=== PATIENT | female | born 1945 | race Caucasian/White ===

== ENCOUNTER → 2018-02-21 09:11 | Outpatient (CLI) | payer MEDICARE, SELFPAY ==
[2018-02-21 11:02] LABS: Add Manual Diff / Slide Review NO; Basophils Percent Auto 0.9 % (0-2); Eosinophils Percent Auto 1.8 % (2-4); Hematocrit 41.2 % (36-46); Hemoglobin 13.6 g/dL (12.0-16.0); Lymphocytes Percent Auto 31.2 % (25-40); Mean Corpuscular Hemoglobin 29.5 PG (26-34); Mean Corpuscular Volume 89.2 fL (80-100); Monocytes Percent Auto 11.2 % (3-14); Neutrophils Absolute Auto 2900 /uL (3000-5900); Neutrophils Percent Auto 54.9 % (50-75); Platelet Count 146 X10^3/uL (150-400); Red Blood Cell Count 4.61 X10^6/uL (4.0-5.2); Red Cell Distribution Width 13.8 % (11.6-14.8); White Blood Cell Count 5.3 X10^3/uL (4.5-11.0)
[2018-02-21 11:26] LABS: Alanine Aminotransferase 34 IU/L (9-52); Albumin 3.8 g/dL (3.5-5.0); Albumin Globulin Ratio 1.7 (1.0-2.8); Alkaline Phosphatase 84 U/L (38-126); Aspartate Aminotransferase 53 IU/L (14-36); BUN Creatinine Ratio 24.3 (6-22); Bilirubin Total 0.5 mg/dL (0.2-1.3); Blood Urea Nitrogen 17 mg/dL (7-17); Carbon Dioxide 30 mmol/L (22-32); Chloride 104 mmol/L (98-107); Estimated Glomerular Filt Rate > 60.0 mL/min (>60); Globulin 2.3 g/dL (1.7-4.1); Glucose 78 mg/dL (80-110); HEMOLYSIS 17 (0-50); Potassium 3.7 mmol/L (3.4-5.1); Sodium 141 mmol/L (137-145); Total Protein 6.1 g/dL (6.3-8.2)
[2018-02-21 11:30] LABS: Hemoglobin A1C% w Est Avg Glu 5.6 % (4.0-6.0)
[2018-02-21 11:39] LABS: Free T3, Triiodothyronine Free 2.97 pg/mL (2.77-5.27); Free T4, Direct Thyroxine 1.25 ng/dL (0.78-2.19)
[2018-02-21 11:52] LABS: Thyroid Stimulating Hormone 2.17 uIU/mL (0.47-4.68)
[2018-02-21 15:57] LABS: Creatinine Urine Random 62.6 mg/dL
[2018-02-21 16:07] LABS: Microalbumi Creatinin Ratio Ur 9.5 ug/mg CR (<30); Microalbumin Urine Random < 0.6 mg/dL (0-1.6)
== END ==
PROVIDERS: PCP Family Medicine; Visit Provider Family Medicine
DX: E11.9 Type 2 diabetes mellitus without complications (principal); I10 Essential (primary) hypertension
CPT/HCPCS: 36415; 80053; 82043; 82570; 83036; 84439; 84443; 84481; 85025

== ENCOUNTER → 2018-06-11 09:33 | Outpatient (CLI) | payer MEDICARE, SELFPAY ==
--- NOTE | 2018-06-11 | DI.MG.S_ITS ---
BILATERAL DIGITAL SCREENING MAMMOGRAM 3D/2D WITH CAD: 06/11/2018 CLINICAL: Routine screening. Comparison is made to exams dated: 06/26/2017 mammogram, 06/07/2017 mammogram, and 05/18/2016 mammogram - [facility]. There are scattered fibroglandular elements in both breasts. Current study was also evaluated with a Computer Aided Detection (CAD) system. No significant masses, calcifications, or other findings are seen in either breast. There has been no significant interval change. IMPRESSION: NEGATIVE There is no mammographic evidence of malignancy. A 1 year screening mammogram is recommended. This exam was interpreted at Station ID: [id number]. NOTE: For mammograms, a report in lay terms will be sent to the patient. Approximately 15% of breast malignancies will not be visualized mammographically. In the management of a palpable breast mass, a negative mammogram must not discourage biopsy of a clinically suspicious lesion. Electronically Signed By: Tima aldrich/lester:06/11/2018 11:15:04 letter sent: Normal Exam ACR BI-RADS Category 1: Negative [id number]
== END ==
PROVIDERS: Family Provider Family Medicine; PCP Family Medicine; Visit Provider Family Medicine
DX: Z12.31 Encounter for screening mammogram for malignant neoplasm of breast (principal)
CPT/HCPCS: 77063; 77067

== ENCOUNTER → 2018-06-18 14:01 | Outpatient (CLI) | payer MEDICARE, SELFPAY ==
[2018-06-18 15:12] LABS: Add Manual Diff / Slide Review NO; Basophils Absolute Auto 0 /uL (0-100); Basophils Percent Auto 0.8 % (0-2); Eosinophils Absolute Auto 100 /uL (0-450); Eosinophils Percent Auto 1.6 % (2-4); Hematocrit 39.4 % (36-46); Lymphocytes Absolute Auto 2000 /uL (1100-4500); Lymphocytes Percent Auto 33.9 % (25-40); Mean Corpuscular HGB Conc 32.9 % (30-36); Mean Corpuscular Hemoglobin 29.2 PG (26-34); Mean Corpuscular Volume 88.8 fL (80-100); Monocytes Absolute Auto 500 /uL (0-900); Monocytes Percent Auto 8.2 % (3-14); Neutrophils Absolute Auto 3300 /uL (1500-7000); Neutrophils Percent Auto 55.5 % (50-75); Platelet Count 183 X10^3/uL (150-400); Red Blood Cell Count 4.44 X10^6/uL (4.0-5.2); Red Cell Distribution Width 14.2 % (11.6-14.8)
[2018-06-18 15:29] LABS: Alanine Aminotransferase 34 IU/L (9-52); Amylase 69 U/L (30-110); Aspartate Aminotransferase 34 IU/L (14-36); BUN Creatinine Ratio 18.8 (6-22); Blood Urea Nitrogen 15 mg/dL (7-17); Calcium 10.3 mg/dL (8.4-10.2); Carbon Dioxide 30 mmol/L (22-32); Chloride 104 mmol/L (98-107); Estimated Glomerular Filt Rate > 60.0 mL/min (>60); Glucose 96 mg/dL (80-110); HEMOLYSIS < 15 (0-50); Lipase 56 U/L (23-300); Potassium 3.6 mmol/L (3.4-5.1); Sodium 140 mmol/L (137-145)
== END ==
PROVIDERS: PCP Family Medicine; Visit Provider Registered Nurse
DX: R10.13 Epigastric pain (principal)
CPT/HCPCS: 36415; 80048; 82150; 83013; 83690; 84450; 84460; 85025

== ENCOUNTER → 2018-08-16 08:31 | Outpatient (CLI) | payer MEDICARE, SELFPAY ==
[2018-08-16 09:50] LABS: Add Manual Diff / Slide Review NO; Basophils Absolute Auto 0 /uL (0-100); Basophils Percent Auto 0.8 % (0-2); Eosinophils Absolute Auto 100 /uL (0-450); Lymphocytes Absolute Auto 1700 /uL (1100-4500); Lymphocytes Percent Auto 29.7 % (25-40); Mean Corpuscular HGB Conc 32.5 % (30-36); Mean Corpuscular Hemoglobin 29.2 PG (26-34); Mean Corpuscular Volume 89.9 fL (80-100); Monocytes Absolute Auto 500 /uL (0-900); Monocytes Percent Auto 8.1 % (3-14); Neutrophils Absolute Auto 3400 /uL (1500-7000); Neutrophils Percent Auto 59.4 % (50-75); Platelet Count 165 X10^3/uL (150-400); Red Blood Cell Count 4.78 X10^6/uL (4.0-5.2); Red Cell Distribution Width 13.8 % (11.6-14.8); White Blood Cell Count 5.7 X10^3/uL (4.5-11.0)
[2018-08-16 10:05] LABS: Hemoglobin A1C% w Est Avg Glu 5.3 % (4.0-6.0)
[2018-08-16 10:11] LABS: BUN Creatinine Ratio 31.3 (6-22); Blood Urea Nitrogen 25 mg/dL (7-17); Calcium 10.3 mg/dL (8.4-10.2); Carbon Dioxide 30 mmol/L (22-32); Chloride 104 mmol/L (98-107); Estimated Glomerular Filt Rate > 60.0 mL/min (>60); Glucose 97 mg/dL (80-110); HEMOLYSIS < 15 (0-50); Potassium 4.1 mmol/L (3.4-5.1); Sodium 141 mmol/L (137-145)
== END ==
PROVIDERS: PCP Family Medicine; Visit Provider Family Medicine
DX: E11.9 Type 2 diabetes mellitus without complications (principal); D69.6 Thrombocytopenia, unspecified
CPT/HCPCS: 36415; 80048; 83036; 85025

== ENCOUNTER → 2018-10-02 09:43 | Outpatient (CLI) | payer MEDICARE, SELFPAY ==
[2018-10-02 10:59] LABS: BUN Creatinine Ratio 27.1 (6-22); Blood Urea Nitrogen 19 mg/dL (7-17); Calcium 10.3 mg/dL (8.4-10.2); Carbon Dioxide 28 mmol/L (22-32); Chloride 103 mmol/L (98-107); Estimated Glomerular Filt Rate > 60.0 mL/min (>60); Glucose 91 mg/dL (80-110); HEMOLYSIS < 15 (0-50); Potassium 4.1 mmol/L (3.4-5.1); Sodium 138 mmol/L (137-145)
== END ==
PROVIDERS: PCP Family Medicine; Visit Provider Family Medicine
DX: I10 Essential (primary) hypertension (principal)
CPT/HCPCS: 36415; 80048

== ENCOUNTER 2018-10-16 10:14 | Emergency (ER) | payer MEDICARE, SELFPAY ==
[2018-10-16 10:24] VITALS: BP 179/79; PULSE 65; RESP 15; TEMP 36.6; O2SAT 100; BMI 28.7
--- NOTE | 2018-10-16 10:42 | ED.CHESTPAIN ---
HPI - Chest Pain General Chief Complaint: Chest Pain Stated Complaint: BACK PAIN/THINK HAVING HEART ATTACH Time Seen by Provider: 10/16/18 10:24 Source: patient and family Mode of arrival: ambulatory Limitations: no limitations History of Present Illness HPI narrative: Patient states that about 20 minutes ago, she was driving over the twin [place] when she suddenly felt a squeezing, vice lacing presser like pain around her upper abdomen and lower ribcage area. She states that it was mainly in the bilateral lateral regions, as well as in the epigastrium. Patient states it was so strong she had to order puller and let her partner drive the car. They came straight here. Patient states she does not necessarily feel short of breath, but states that it hurts to take a deep breath, and is hard to get a full breath in for this reason. Patient states she felt a twinge of nausea at the height of the symptoms, but this is improved. Patient states her symptoms in general have improved. She states she took 2 aspirin belonging to her partner when symptoms started. Patient has no history of coronary artery disease or any other heart problems, other than occasional PVCs. She states that she has diet-controlled diabetes, and that her hemoglobin A1c is have been ?perfect?. She also states that while she does have hypertension, has been very well controlled for years. She states her medications were changed last month, due to concerns over the medications themselves, but not because they were not controlling her blood pressure. Patient states she has not been ill recently. She denies any symptoms of any kind, prior to onset of the truncal pain. Patient has not had any lower extremity edema or calf pain. No history of DVT. Patient does note that she has been moving, and quite a few boxes yesterday. No other complaints at this time. Patient reports a cholecystectomy remotely. Related Data Home Medications Medication Instructions Recorded Confirmed aspirin 81 mg PO Q DAY #0 12/10/15 06/18/18 Previous Rx's Medication Instructions Recorded lorazepam 0.5 mg PO SEE INSTRUCTIONS #4 tab 08/22/17 acyclovir 400 mg tablet 400 mg PO TID #30 tab 10/03/18 furosemide 20 mg tablet 10 mg PO DAILY #45 tab 10/03/18 irbesartan 75 mg tablet 75 mg PO DAILY #30 tab 10/03/18 Allergies Allergy/AdvReac Type Severity Reaction Status Date / Time No Known Drug Allergies Allergy Verified 06/18/18 13:36 Review of Systems Constitutional Denies chills, Denies fever(s), Denies lethargy and Denies weakness Eyes Denies change in vision, Denies eye discharge, Denies irritation and Denies loss of vision ENT Ears, Nose, Mouth, and Throat: Denies change in voice, Denies neck pain and Denies sore throat Cardiovascular Reports chest pain, Denies irregular heart rhythm, Denies lightheadedness, Denies palpitations, Denies dyspnea, Denies dyspnea on exertion and Denies orthopnea Respiratory Denies cough, Denies dyspnea, Denies dyspnea on exertion and Denies wheezing Gastrointestinal Gastrointestinal: Reports abdominal pain (Epigastric), Denies change in bowel habits, Denies diarrhea, Denies nausea and Denies vomiting Genitourinary Denies hematuria, Denies flank pain, Denies urinary incontinence and Denies urinary urgency Musculoskeletal Denies neck pain Integumentary/Breasts Denies pruritus, Denies erythema, Denies rash and Denies wounds Neurologic Denies confusion, Denies loss of vision and Denies weakness Psychiatric Denies anxiety, Denies confusion, Denies depression, Denies homicidal ideation and Denies suicidal ideation Endocrine Denies palpitations Hematologic/Lymphatic Denies easy bruising Allergic/Immunologic Denies wheezing [facility] Medical History 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) Overweight (BMI 25.0-29.9) (Chronic) Asymptomatic PVCs (Chronic) Hypertension (Chronic 11/05/13) Controlled type 2 diabetes mellitus without complication (Chronic 11/25/14) 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 07/13/16) Asthma (Chronic) Chronic back pain (Chronic ~1979) Diabetes mellitus (Chronic 2007) Herpes, genital (Chronic ~1964) Hypertension (Chronic 1973) Leg pain, bilateral (Chronic 2010) Actinic keratosis of left cheek (Resolved 02/2012) Chicken pox (Resolved) Measles (Resolved) Normal Papanicolaou smear (Resolved) Precancerous skin lesion (Resolved ~2007) Rubella (Resolved) Surgical History Anesthesia (Resolved) History of arthroplasty of right knee (Resolved 02/23/14) History of inguinal hernia repair (Resolved) History of knee replacement (Resolved 2009) History of local excision of skin lesion (Resolved ~2007) History of ventral hernia repair (Resolved) Status post cholecystectomy (Resolved 1995) Status post hernia repair (Resolved 2012) Family History (Updated 02/22/18 @ 12:14 by Diana Roy) Mother Heart disease High cholesterol Congestive heart failure Father No problems noted. Social History Smoking Status: Former smoker Family History Mother Heart disease High cholesterol Congestive heart failure Father No problems noted. Social History Smoking Status: Former smoker Exam Initial Vital Signs Initial Vital Signs: Vital Signs Temperature 97.8 F 10/16/18 10:24 Pulse Rate 65 10/16/18 10:24 Respiratory Rate 15 10/16/18 10:24 Blood Pressure 179/79 H 10/16/18 10:24 Pulse Oximetry 100 10/16/18 10:24 Const General: cooperative and well developed Nutritional Appearance: well nourished Orientation: alert, awake, oriented x3 and not confused [facility] Head: normocephalic and atraumatic Ears: external ears normal Nose: external nose normal and No nasal discharge Face and sinus: face symmetric and No dry mucous membranes Mouth: oral mucosae normal and moist mucous membranes Teeth and gingiva: dentition normal Eyes General: appearance normal, both eyes and all related structures Eyelids: eyelids normal Conjunctivae: conjunctivae normal Sclera: sclerae normal Pupils: PERRL EOM: EOM intact bilaterally Neck Neck: normal visual inspection, trachea midline, No lymphadenopathy, No midline deformity and No JVD Lymphatic: No lymphedema Chest Chest: normal inspection of the chest Other: Patient has tenderness over the lateral aspects of her mid inferior ribcage area. No deformity, edema, or crepitus. Resp Effort & Inspection: normal respiratory effort, able to speak in complete sentences, no respiratory distress and no use of accessory muscles Auscultation: clear to auscultation bilaterally, no rales, no rhonchi and no wheezes Cardio Rate: regular rate Rhythm: regular rhythm Heart Sounds: no click, no gallops, no murmurs and no rubs Pulses: normal peripheral pulses GI Inspection: non-distended Palpation: soft, no hepatosplenomegaly, No guarding, No pulsatile mass and tender (Mild, epigastric.) Auscultation: normal bowel sounds Back/Spine/Pelvis Back: No CVA tenderness Cervical Spine: cervical ROM normal and No pain with cervical ROM Thoracic/Lumbar Spine: thoracic and lumbar spine normal to inspection Skin General: no rashes or lesions noted, No jaundice and No petechiae Neuro General: alert, oriented x3, gait normal and no focal motor deficits Speech: speech normal Extrem General: full ROM, no clubbing, cyanosis or edema, no pedal edema and no calf tenderness Psych Appearance: well kempt Mental Status: mental status grossly normal Attitude: cooperative Thought Content: normal and suicidality Judgment: judgment good Course Course Narrative: Patient was well appearing overall, and symptoms were improving. However, given her age and other risk factors, as well as the onset of pain and associated symptoms, I felt the patient should be worked up. EKG, labs, chest x-ray, and urinalysis were performed. Initial workup was negative. The patient's symptoms sounded more consistent with a noncardiac etiology, but given the degree of pain and the location, I felt she should have a repeat troponin performed. This was done, and found to be negative. The patient declined symptomatic intervention, both initially and subsequently, stating her pain was minimal. The patient had a benign abdominal exam, and had only mild tenderness in the superior most reaches of the epigastric region. Additionally, her lipase and LFTs were normal, and gallbladder was no longer present. Patient had no trauma to raise concern for any upper abdominal organ pathology, and as such, and in consideration of the above factors, I did not feel imaging of her abdomen was indicated. I have discussed this with the patient. Her primary care physician is aware that she is here, and we have discussed follow-up, should the patient have further episodes like this. We have also discussed the usual indications for return, as well as symptomatic management at home. Orders Ordered: Discontinued Medications Sodium Chloride (Normal Saline 0.9%) 1,000 mls @ 1,000 mls/hr IV BOLUS ONE Stop: 10/16/18 11:38 Last Infusion: 10/16/18 14:16 Dose: 0 mls/hr Admin: 10/16/18 11:12 Dose: 1,000 mls/hr Ondansetron HCl (Zofran) 4 mg IV NOW ONE Stop: 10/16/18 10:40 Last Admin: 10/16/18 14:15 Dose: Not Given Vital Signs - 8 hr 10/16/18 10:24 Temperature 97.8 F Pulse Rate 65 Respiratory Rate 15 Blood Pressure 179/79 H Pulse Oximetry 100 MDM - Chest Pain Medical Records Data Attestation: I reviewed the patient's medical records. Lab Data Attestation: I reviewed the patient's lab results. Result diagrams: 10/16/18 10:33 10/16/18 10:33 Lab Results 10/16/18 10/16/18 10/16/18 Range/Units 10:33 10:33 10:33 WBC 5.9 (4.5-11.0) X10^3/uL RBC 4.61 (4.0-5.2) X10^6/uL Hgb 13.3 (12.0-16.0) g/dL Hct 40.4 (36-46) % MCV 87.7 (80-100) fL MCH 28.9 (26-34) PG MCHC 33.0 (30-36) % RDW 13.6 (11.6-14.8) % Plt Count 148 L (150-400) X10^3/uL Neut % (Auto) 52.1 (50-75) % Lymph % (Auto) 36.3 (25-40) % [place] % (Auto) 9.7 (3-14) % Eos % (Auto) 1.4 L (2-4) % Baso % (Auto) 0.5 (0-2) % Neut # (Auto) 3000 (7058-0490) /uL Lymph # (Auto) 2100 (0546-6701) /uL [place] # (Auto) 600 (0-900) /uL Eos # (Auto) 100 (0-450) /uL Baso # (Auto) 0 (0-100) /uL Sodium 140 (137-145) mmol/L Potassium 3.7 (3.4-5.1) mmol/L Chloride 103 (98-107) mmol/L Carbon Dioxide 30 (22-32) mmol/L BUN 21 H (7-17) mg/dL Creatinine 0.90 (0.52-1.04) mg/dL Estimated GFR > 60.0 (>60) mL/min BUN/Creatinine Ratio 23.3 H (6-22) Glucose 96 (80-110) mg/dL Calcium 10.2 (8.4-10.2) mg/dL Total Bilirubin 0.6 (0.2-1.3) mg/dL AST 180 H (14-36) IU/L ALT 80 H (9-52) IU/L Alkaline Phosphatase 109 (38-126) U/L Total Creatine Kinase 279 H (30-135) U/L CK-MB (CK-2) 5.69 H (<2.37) ng/mL CK-MB (CK-2) Rel Index 2.0 (1.5-5.0) % Troponin I < 0.012 (0.01-0.034) ng/mL Total Protein 6.4 (6.3-8.2) g/dL Albumin 4.0 (3.5-5.0) g/dL Globulin 2.4 (1.7-4.1) g/dL Albumin/Globulin Ratio 1.7 (1.0-2.8) Lipase 80 (23-300) U/L Urine Color Urine Appearance Urine pH (4.5-8.0) Ur Specific [place] (1.000-1.035) Urine Protein (Negative) Urine Glucose (UA) (Negative) g/dL Urine Ketones (NEGATIVE) Urine Occult Blood (Negative) Urine Nitrate (Negative) Urine Bilirubin (NEGATIVE) Urine Urobilinogen (0.2) E.U./dL Ur Leukocyte Esterase (NEGATIVE) Urine RBC (0-5/HPF) Urine WBC (0-5/HPF) Urine Bacteria (None) Ur Culture Indicated? Micro UA Comment 10/16/18 10/16/18 Range/Units 10:50 13:10 WBC (4.5-11.0) X10^3/uL RBC (4.0-5.2) X10^6/uL Hgb (12.0-16.0) g/dL Hct (36-46) % MCV (80-100) fL MCH (26-34) PG MCHC (30-36) % RDW (11.6-14.8) % Plt Count (150-400) X10^3/uL Neut % (Auto) (50-75) % Lymph % (Auto) (25-40) % [place] % (Auto) (3-14) % Eos % (Auto) (2-4) % Baso % (Auto) (0-2) % Neut # (Auto) (1021-9857) /uL Lymph # (Auto) (9531-5695) /uL [place] # (Auto) (0-900) /uL Eos # (Auto) (0-450) /uL Baso # (Auto) (0-100) /uL Sodium (137-145) mmol/L Potassium (3.4-5.1) mmol/L Chloride (98-107) mmol/L Carbon Dioxide (22-32) mmol/L BUN (7-17) mg/dL Creatinine (0.52-1.04) mg/dL Estimated GFR (>60) mL/min BUN/Creatinine Ratio (6-22) Glucose (80-110) mg/dL Calcium (8.4-10.2) mg/dL Total Bilirubin (0.2-1.3) mg/dL AST (14-36) IU/L ALT (9-52) IU/L Alkaline Phosphatase (38-126) U/L Total Creatine Kinase (30-135) U/L CK-MB (CK-2) (<2.37) ng/mL CK-MB (CK-2) Rel Index (1.5-5.0) % Troponin I < 0.012 (0.01-0.034) ng/mL Total Protein (6.3-8.2) g/dL Albumin (3.5-5.0) g/dL Globulin (1.7-4.1) g/dL Albumin/Globulin Ratio (1.0-2.8) Lipase (23-300) U/L Urine Color Yellow Urine Appearance Clear Urine pH 7.5 (4.5-8.0) Ur Specific [place] 1.020 (1.000-1.035) Urine Protein Negative (Negative) Urine Glucose (UA) Negative (Negative) g/dL Urine Ketones Negative (NEGATIVE) Urine Occult Blood Negative (Negative) Urine Nitrate Negative (Negative) Urine Bilirubin Negative (NEGATIVE) Urine Urobilinogen 0.2 (0.2) E.U./dL Ur Leukocyte Esterase Negative (NEGATIVE) Urine RBC None seen (0-5/HPF) Urine WBC None seen (0-5/HPF) Urine Bacteria None seen (None) Ur Culture Indicated? Cult not indicated Micro UA Comment Microscopic normal Imaging Data Chest x-ray: Attestation: I personally reviewed and interpreted this imaging study as follows: My impression: Negative Radiologist's impression: PROCEDURE: XR CHEST 1V INDICATIONS: chest pain TECHNIQUE: One view of the chest was acquired. COMPARISON: None. FINDINGS: Surgical changes and devices: None. Lungs and pleura: Lungs are clear. No pleural effusions or pneumothorax. Mediastinum: Mediastinal contours appear normal. Heart size is normal. Bones and chest wall: No suspicious bony lesions. Overlying soft tissues appear unremarkable. IMPRESSION: Normal for age, source of current chest pain symptoms is not seen. Dictated by: Eduardo Mills M.D. on 10/16/2018 at 11:27 Approved by: Eduardo Mills M.D. on 10/16/2018 at 11:28 ECG Data Attestation: I personally reviewed and interpreted this ECG as follows: Interpretation: Twelve lead EKG performed October 16, 2018 at 10:17 a.m., as follows: Regular ventricular rhythm with a rate of 66 beats per minute MI interval 176 milliseconds QRS duration 101 millisecond QTC interval 425 milliseconds Occasional PVCs No significant ST elevation or depression No significant T-wave changes Interpretation: Normal sinus rhythm with occasional PVCs; no sense of acute ischemia; borderline EKG as interpreted by ED MD. Discharge Plan Departure Patient Disposition: Home Clinical Impression: Chest pain Qualifiers: Chest pain type: chest pain on breathing Qualified Code(s): R07.1 - Chest pain on breathing Discharge Date/Time: 10/16/18 14:18 Interventions: ED Discharge Assessment Last Done: 10/16/18 14:17 Instructions: DI for Chest Pain Activity Restrictions/Additional Instructions: Your labs, including repeat cardiac enzymes, and EKG look great. Your chest x-ray is negative. Your pancreas and liver labs are normal. Your gallbladder has already been taken out, so this is less likely to be concerned this time. You have your reported significant improvement of your symptoms, and your abdominal exam is benign. You may have information the inner lining of your stomach, or spasm of your esophagus. You have declined symptomatic medications. There is no evidence of an emergent condition affecting your vital organs in the chest. As such, further imaging is not indicated at this time. However, if you have worsening pain or other concerning symptoms, please return to the emergency department. Otherwise, follow up with Dr. Leiva in clinic. Prescriptions: No Action aspirin 81 MG tablet,delayed release (DR/EC) 81 mg PO Q DAY Qty: 0 RF: 0 lorazepam 0.5 MG tablet 0.5 mg PO SEE INSTRUCTIONS Qty: 4 RF: 0 furosemide 20 mg tablet 10 mg PO DAILY Qty: 45 RF: 3 acyclovir 400 mg tablet 400 mg PO TID Qty: 30 RF: 0 irbesartan 75 mg tablet 75 mg PO DAILY Qty: 30 RF: 1 Referrals: Christina Leiva DO [Primary Care Provider] -
--- NOTE | 2018-10-16 10:48 | DI.RAD.S_ITS ---
PROCEDURE: XR CHEST 1V INDICATIONS: chest pain TECHNIQUE: One view of the chest was acquired. COMPARISON: None. FINDINGS: Surgical changes and devices: None. Lungs and pleura: Lungs are clear. No pleural effusions or pneumothorax. Mediastinum: Mediastinal contours appear normal. Heart size is normal. Bones and chest wall: No suspicious bony lesions. Overlying soft tissues appear unremarkable. IMPRESSION: Normal for age, source of current chest pain symptoms is not seen. Dictated by: Eduardo Mills M.D. on 10/16/2018 at 11:27 Approved by: Eduardo Mills M.D. on 10/16/2018 at 11:28
[2018-10-16 10:50] LABS: Bacteria Urine None Seen; RBC Urine None Seen (0-5/HPF); WBC Urine None Seen (0-5/HPF)
[2018-10-16 10:50] LABS: Add Manual Diff / Slide Review NO; Basophils Absolute Auto 0 /uL (0-100); Basophils Percent Auto 0.5 % (0-2); Eosinophils Absolute Auto 100 /uL (0-450); Eosinophils Percent Auto 1.4 % (2-4); Hematocrit 40.4 % (36-46); Hemoglobin 13.3 g/dL (12.0-16.0); Lymphocytes Absolute Auto 2100 /uL (1100-4500); Lymphocytes Percent Auto 36.3 % (25-40); Mean Corpuscular Hemoglobin 28.9 PG (26-34); Mean Corpuscular Volume 87.7 fL (80-100); Monocytes Absolute Auto 600 /uL (0-900); Monocytes Percent Auto 9.7 % (3-14); Neutrophils Absolute Auto 3000 /uL (1500-7000); Neutrophils Percent Auto 52.1 % (50-75); Platelet Count 148 X10^3/uL (150-400); Red Blood Cell Count 4.61 X10^6/uL (4.0-5.2); Red Cell Distribution Width 13.6 % (11.6-14.8); White Blood Cell Count 5.9 X10^3/uL (4.5-11.0)
[2018-10-16 10:53] LABS: Appearance Urine UA CLEAR; Bilirubin Urine UA NEGATIVE (NEGATIVE); Color Urine UA YELLOW; Glucose Urine UA NEGATIVE (Negative); Ketones Urine UA NEGATIVE (NEGATIVE); Leukocyte Esterase Urine UA NEGATIVE (NEGATIVE); Nitrite Urine UA NEGATIVE (Negative); Occult Blood Urine UA NEGATIVE (Negative); Protein Urine UA NEGATIVE (Negative); Urobilinogen Urine UA 0.2 E.U./dL (0.2); pH Urine UA 7.5 (4.5-8.0)
[2018-10-16 10:54] LABS: Alanine Aminotransferase 80 IU/L (9-52); Albumin Globulin Ratio 1.7 (1.0-2.8); Alkaline Phosphatase 109 U/L (38-126); Aspartate Aminotransferase 180 IU/L (14-36); BUN Creatinine Ratio 23.3 (6-22); Bilirubin Total 0.6 mg/dL (0.2-1.3); Blood Urea Nitrogen 21 mg/dL (7-17); Calcium 10.2 mg/dL (8.4-10.2); Carbon Dioxide 30 mmol/L (22-32); Chloride 103 mmol/L (98-107); Creatine Kinase 279 U/L (30-135); Estimated Glomerular Filt Rate > 60.0 mL/min (>60); Globulin 2.4 g/dL (1.7-4.1); Glucose 96 mg/dL (80-110); HEMOLYSIS < 15 (0-50); Potassium 3.7 mmol/L (3.4-5.1); Sodium 140 mmol/L (137-145); Total Protein 6.4 g/dL (6.3-8.2)
[2018-10-16 10:55] VITALS: BP 171/71; PULSE 59; RESP 17; O2SAT 99
[2018-10-16 10:55] LABS: Lipase 80 U/L (23-300)
[2018-10-16 10:58] LABS: Culture Indicated Urine Cult Not Indicated; Urine Comments Microscopic Normal
[2018-10-16 11:00] VITALS: BP 152/73; PULSE 57; RESP 15; O2SAT 100
[2018-10-16 11:06] LABS: Troponin I < 0.012 ng/mL (0.01-0.034)
[2018-10-16 11:10] LABS: Creatine Kinase MB 5.69 ng/mL (<2.37)
[2018-10-16] MEDS: SODIUM CHLORIDE 0.9% 1,000 ML 1000 ML IV (11:12)
[2018-10-16 11:30] VITALS: BP 149/72; PULSE 58; RESP 15; O2SAT 99
--- NOTE | 2018-10-16 11:30 | PC.NURSE ---
pt reports, while driving developed bilateral side pain, epigastric tightness, stopped driving and had her friend drove to er. also took 2 325mg aspirin guard captain. denies diaphoresis, with hurts to breath due to pain, thought i was anxious, denies uti sxs, denies coughing. pain at 10/10 , now on arrival pain free.
--- NOTE | 2018-10-16 11:33 | PC.NURSE ---
hx of htn, takes meds, dm type 2 , diet controlled. hernia repair.
[2018-10-16 12:05] VITALS: BP 144/84; PULSE 57; RESP 21; O2SAT 100
--- NOTE | 2018-10-16 13:10 | PC.NURSE ---
for 2nd trop.
[2018-10-16 13:43] LABS: Troponin I < 0.012 ng/mL (0.01-0.034)
[2018-10-16 14:17] VITALS: BP 146/78; PULSE 59; RESP 21; O2SAT 100
== END 2018-10-16 14:18 | disposition home or self-care (01) ==
PROVIDERS: Emergency Provider Emergency Medicine; PCP Family Medicine
DX: R07.1 Chest pain on breathing (principal)
CPT/HCPCS: 36415; 36591; 71045; 80053; 81001; 82550; 82553; 83690; 84484; 85025; 93005; 93041; 96360; 96361; 99285

== ENCOUNTER → 2018-12-02 10:08 | Outpatient (CLI) | payer MEDICARE, SELFPAY ==
[2018-12-02 10:50] LABS: Add Manual Diff / Slide Review NO; Basophils Absolute Auto 100 /uL (0-100); Eosinophils Absolute Auto 100 /uL (0-450); Eosinophils Percent Auto 1.5 % (2-4); Hematocrit 38.7 % (36-46); Lymphocytes Absolute Auto 1900 /uL (1100-4500); Lymphocytes Percent Auto 31.8 % (25-40); Mean Corpuscular HGB Conc 33.6 % (30-36); Mean Corpuscular Hemoglobin 29.5 PG (26-34); Mean Corpuscular Volume 87.8 fL (80-100); Monocytes Absolute Auto 500 /uL (0-900); Monocytes Percent Auto 8.1 % (3-14); Neutrophils Absolute Auto 3400 /uL (1500-7000); Neutrophils Percent Auto 57.6 % (50-75); Platelet Count 169 X10^3/uL (150-400); Red Blood Cell Count 4.41 X10^6/uL (4.0-5.2); Red Cell Distribution Width 13.7 % (11.6-14.8); White Blood Cell Count 5.9 X10^3/uL (4.5-11.0)
[2018-12-02 11:12] LABS: Alanine Aminotransferase 32 IU/L (9-52); Albumin 3.8 g/dL (3.5-5.0); Albumin Globulin Ratio 1.7 (1.0-2.8); Alkaline Phosphatase 102 U/L (38-126); Amylase 63 U/L (30-110); Aspartate Aminotransferase 30 IU/L (14-36); BUN Creatinine Ratio 27.1 (6-22); Bilirubin Total 0.6 mg/dL (0.2-1.3); Blood Urea Nitrogen 19 mg/dL (7-17); Calcium 10.4 mg/dL (8.4-10.2); Carbon Dioxide 28 mmol/L (22-32); Chloride 105 mmol/L (98-107); Estimated Glomerular Filt Rate > 60.0 mL/min (>60); Globulin 2.2 g/dL (1.7-4.1); Glucose 98 mg/dL (80-110); HEMOLYSIS < 15 (0-50); Lipase 70 U/L (23-300); Potassium 3.9 mmol/L (3.4-5.1); Sodium 139 mmol/L (137-145)
--- NOTE | 2018-12-02 13:48 | DI.US.S_ITS ---
PROCEDURE: US ABDOMEN COMPLETE INDICATIONS: UPPER ABD PAIN, PANCREATITIS? BILIARY OBSTRUCTION TECHNIQUE: Real-time scanning was performed of the abdominal and retroperitoneal organs, with image documentation. COMPARISON: [facility], [place], ABDOMEN/PELVIS WITH CONTRAST, 02/29/2016, 8:51. FINDINGS: Liver: Liver is normal in size and homogeneous in echotexture. Gallbladder: Surgically absent. Biliary ducts: Intrahepatic bile ducts are non-dilated. Extrahepatic bile duct caliber measures 9.4 mm. Normal is 6-7 mm or less in diameter, or 10 mm or less post-cholecystectomy. There is a subcentimeter echogenic focus in the common bile duct. Pancreas: Visualized portions of the pancreas are sonographically normal. Spleen: Spleen is normal in size and homogeneous in echotexture. Kidneys: Kidneys are normal in size and echotexture. Right kidney measures 9.5 cm long; left kidney measures 9.8 cm long. No hydronephrosis or nephrolithiasis. A 1.7 x 1.9 x 2.2 cm hypoechoic nodule with posterior acoustic enhancement in the mid right kidney, compatible with a cyst. No solid masses. Aorta: Visualized aorta is normal in caliber at less than 3 cm. Iliacs: Proximal common iliac arteries are normal in caliber at less than 2.5 cm. IVC: Intrahepatic inferior vena cava is patent. Miscellaneous: No free abdominal fluid. IMPRESSION: 1. Cholecystectomy. There is dilated common duct bile duct. A 7 mm echogenic structure in the common bile duct may be a common bile duct stone. Please correlate with serum bilirubin for biliary. If clinically indicated, MRCP may be helpful. 2. A 2.2 cm cyst in right kidney. Dictated by: Jeramie Dong M.D. on 12/02/2018 at 16:06 Approved by: Jeramie Dong M.D. on 12/02/2018 at 16:19
== END ==
PROVIDERS: PCP Family Medicine; Visit Provider Family Medicine
DX: R10.9 Unspecified abdominal pain (principal); R94.5 Abnormal results of liver function studies; K83.1 Obstruction of bile duct; Q61.01 Congenital single renal cyst
CPT/HCPCS: 76700; 80053; 82150; 83690; 85025

== ENCOUNTER → 2018-12-27 07:40 | Outpatient (CLI) | payer MEDICARE, SELFPAY ==
--- NOTE | 2018-12-27 07:42 | DI.MRI.S_ITS ---
PROCEDURE: MR ABDOMEN WO CON INDICATIONS: abdominal pain, posible stone in bile duct TECHNIQUE: Coronal HASTE through the abdomen, axial 2-D FLASH in- and [id number], and breath-hold T2 FSE with fat saturation through the biliary system and pancreas. Oblique coronal and axial thin-slice HASTE, radial thick-slab HASTE centered on the extrahepatic bile ducts. Intravenous secretin: Not requested. COMPARISON: [facility], US, US ABDOMEN COMPLETE, 12/02/2018, 14:01. [facility], CT, ABDOMEN/PELVIS WITH CONTRAST, 02/29/2016, 8:51. FINDINGS: Image quality: Excellent. Pancreas and biliary system: Intra-hepatic biliary ducts are non dilated but the extrahepatic common duct measures up to 8 mm and contains at least 3 small calculi each measuring approximately 3-4 mm in maximal dimension. Pancreas is normal in morphology, without adjacent soft tissue edema. Pancreatic duct is normal in caliber, without developmental anomalies. Gallbladder appears surgically absent. Other solid organs: Liver is normal in size. Spleen is normal in size. No adrenal nodules. Both kidneys are normal in size, without hydronephrosis. Nodes and vessels: No retroperitoneal or mesenteric adenopathy by size criteria. Aorta and inferior vena cava are normal in size. Bowel and peritoneum: Unenhanced bowel loops are normal in caliber. No free fluid. Lung bases: No basal pleural effusions. Heart size is normal. Bones and soft tissues: No ventral hernias. Bone marrow is of normal overall signal. IMPRESSION: At least 3 gallstones are present within the common bile duct, which is abnormally dilated at time of MR imaging to a maximal dimension of 8 mm. Prior MR scanning at identified a 9 mm diameter common duct. Prior cholecystectomy. Gastroenterology consultation appears warranted for stone extraction. Dictated by: Eduardo Mills M.D. on 12/27/2018 at 10:19 Approved by: Eduardo Mills M.D. on 12/27/2018 at 10:25
== END ==
PROVIDERS: PCP Family Medicine; Visit Provider Family Medicine
DX: R10.9 Unspecified abdominal pain (principal); K80.50 Calculus of bile duct without cholangitis or cholecystitis without obstruction; K83.8 Other specified diseases of biliary tract; Z90.49 Acquired absence of other specified parts of digestive tract
CPT/HCPCS: 74181

== ENCOUNTER 2019-02-25 18:44 | Emergency (ER) | payer MEDICARE, SELFPAY ==
[2019-02-25 19:01] VITALS: BP 151/67; PULSE 64; RESP 22; TEMP 37.1; O2SAT 98; BMI 29.0
--- NOTE | 2019-02-25 19:12 | ED_ITS ---
HPI - Abdominal Pain General Chief Complaint: Abdominal Pain Stated Complaint: ABD PAIN Time Seen by Provider: 02/25/19 19:03 Source: patient Mode of arrival: Ambulatory Limitations: no limitations History of Present Illness HPI narrative: Patient is a 74-year-old female who presents with abdominal pain. She had an ERCP yesterday at [facility] where they removed for stones from the common bile duct. She apparently had 4 stones. She immediately started having pain discomfort and nausea 30 minutes prior to arrival she immediately came to [facility] Emergency Department. She denies any fever or chills. She has not vomited. She says this pain feels exactly like it did when her stones were diagnosed. complaint: abdominal pain Relieving factors: nothing Related Data Home Medications Medication Instructions Recorded Confirmed aspirin 81 mg PO Q DAY #0 12/10/15 06/18/18 Previous Rx's Medication Instructions Recorded acyclovir 400 mg tablet 400 mg PO TID #30 tab 10/03/18 furosemide 20 mg tablet 20 mg PO DAILY #90 tab 12/02/18 irbesartan 75 mg tablet 75 mg PO DAILY #90 tab 12/02/18 lorazepam 0.5 mg tablet 0.5 mg PO SEE INSTRUCTIONS #4 tab 12/24/18 Allergies Allergy/AdvReac Type Severity Reaction Status Date / Time No Known Drug Allergies Allergy Verified 02/25/19 19:06 Review of Systems Review of Systems Narrative: GENERAL: Denies chills, fatigue, malaise, fever, sweats, travel HEENT: Denies sinus pain, ear pain, sore throat, difficulty swallowing, neck pain RESPIRATORY: Denies dyspnea, cough, wheezing, hemoptysis, sputum. CARDIOVASCULAR: Denies chest pain, palpitations, orthopnea, edema GASTROINTESTINAL: See HPI : Denies dysuria, frequency, incontinence, hematuria, urinary retention, flank pain. MUSCULOSKELETAL: Denies weakness, joint pain, or bony pain SKIN: No rash, no erythema, no pruritus NEUROLOGIC: Denies weakness, dizziness, headache, numbness, change in speech, confusion PSYCHIATRIC: No concerning psychosocial issues. 12 point review of systems is negative except for those stated above and HPI Patient History Social History Smoking Status: Former smoker alcohol intake frequency: a few times a month Substance Use Type: does not use Exam Initial Vital Signs Initial Vital Signs: Vital Signs Temperature 98.7 F 02/25/19 19:01 Pulse Rate 64 02/25/19 19:01 Respiratory Rate 22 02/25/19 19:01 Blood Pressure 151/67 H 02/25/19 19:01 Pulse Oximetry 98 02/25/19 19:01 GENERAL: Alert female appears in discomfort HEENT: Head atraumatic,EOMI, pupils reactive, face symmetric, moist mucous membranes CARDIOVASCULAR: Regular rate and rhythm without murmurs, rubs or gallops. RESPIRATORY: Breath sounds equal bilaterally, no wheezes rales or rhonchi. ABDOMEN: Soft, tender epigastric area no distention : No CVA tenderness EXTREMITIES: Normal range of motion, no clubbing or edema. Neurovascularly intact NEUROLOGICAL: Alert and oriented x4.Normal gait and speech. SKIN: Warm, dry, no laceration, no petechiae, no rashes or lesions. Course Orders Ordered: ED Orders 02/25/19 19:07 EKG-12 Lead Stat 02/25/19 19:10 Complete Blood Count AUTO DIFF Stat Comprehensive Metabolic Panel Stat Lipase Stat Partial Thromboplastin Time Stat Prothrombin Time INR Stat 02/25/19 19:18 US abdomen limited Stat 02/25/19 20:45 CT abdomen pelvis w con Stat 02/25/19 21:00 Urine Culture Stat Urine Microscopic Stat Discontinued Medications Hydromorphone HCl (Dilaudid) 0.5 mg IV NOW ONE Stop: 02/25/19 19:46 Last Admin: 02/25/19 20:07 Dose: Not Given Documented by: PRADEEP Ondansetron HCl (Zofran) 4 mg IV NOW ONE Stop: 02/25/19 19:46 Last Admin: 02/25/19 20:08 Dose: Not Given Documented by: PRADEEP Consultations Consultation #1: Dr. Roque, on-call GI physician has been updated patient's symptoms test results. Agrees with outpatient follow-up as needed no further te sting indicated. Time: 22:10 Vital Signs Vital signs: Vital Signs - 8 hr 02/25/19 19:01 02/25/19 21:24 02/25/19 22:38 Temperature 98.7 F Pulse Rate 64 63 58 L Respiratory Rate 22 12 Blood Pressure 151/67 H 128/60 Blood Pressure [Left Arm] 124/52 L Pulse Oximetry 98 98 100 MDM - Abdominal Pain Lab Data Result diagrams: 02/25/19 19:10 02/25/19 19:10 Labs: Lab Results 02/25/19 02/25/19 02/25/19 Range/Units 19:10 19:10 19:10 WBC 9.5 (4.5-11.0) X10^3/uL RBC 4.25 (4.0-5.2) X10^6/uL Hgb 12.4 (12.0-16.0) g/dL Hct 37.6 (36-46) % MCV 88.6 (80-100) fL MCH 29.1 (26-34) PG MCHC 32.9 (30-36) % RDW 13.4 (11.6-14.8) % Plt Count 158 (150-400) X10^3/uL Neut % (Auto) 56.2 (50-75) % Lymph % (Auto) 33.8 (25-40) % Child[place] % (Auto) 8.4 (3-14) % Eos % (Auto) 1.0 L (2-4) % Baso % (Auto) 0.6 (0-2) % Neut # (Auto) 5300 (2072-4496) /uL Lymph # (Auto) 3200 (7099-2432) /uL Childress # (Auto) 800 (0-900) /uL Eos # (Auto) 100 (0-450) /uL Baso # (Auto) 100 (0-100) /uL PT 11.9 (10.1-12.7) SECONDS INR 1.0 (0.9-1.3) APTT 29 (26.4-36.2) SECONDS Sodium 138 (137-145) mmol/L Potassium 3.6 (3.4-5.1) mmol/L Chloride 105 (98-107) mmol/L Carbon Dioxide 26 (22-32) mmol/L BUN 19 H (7-17) mg/dL Creatinine 0.80 (0.52-1.04) mg/dL Estimated GFR > 60.0 (>60) mL/min BUN/Creatinine Ratio 23.8 H (6-22) Glucose 136 H (80-110) mg/dL Calcium 9.9 (8.4-10.2) mg/dL Total Bilirubin 0.6 (0.2-1.3) mg/dL AST 74 H (14-36) IU/L ALT 37 (9-52) IU/L Alkaline Phosphatase 77 (38-126) U/L Total Protein 5.8 L (6.3-8.2) g/dL Albumin 3.7 (3.5-5.0) g/dL Globulin 2.1 (1.7-4.1) g/dL Albumin/Globulin Ratio 1.8 (1.0-2.8) Lipase 57 (23-300) U/L Urine RBC (0-5/HPF) Urine WBC (0-5/HPF) Ur Squamous Epith Cells (0-5/HPF) Ur Transition Epith Cell (0-5/HPF) Urine Bacteria (None) Ur Culture Indicated? 02/25/19 Range/Units 21:00 WBC (4.5-11.0) X10^3/uL RBC (4.0-5.2) X10^6/uL Hgb (12.0-16.0) g/dL Hct (36-46) % MCV (80-100) fL MCH (26-34) PG MCHC (30-36) % RDW (11.6-14.8) % Plt Count (150-400) X10^3/uL Neut % (Auto) (50-75) % Lymph % (Auto) (25-40) % Childress % (Auto) (3-14) % Eos % (Auto) (2-4) % Baso % (Auto) (0-2) % Neut # (Auto) (3605-6145) /uL Lymph # (Auto) (1517-0676) /uL Childress # (Auto) (0-900) /uL Eos # (Auto) (0-450) /uL Baso # (Auto) (0-100) /uL PT (10.1-12.7) SECONDS INR (0.9-1.3) APTT (26.4-36.2) SECONDS Sodium (137-145) mmol/L Potassium (3.4-5.1) mmol/L Chloride (98-107) mmol/L Carbon Dioxide (22-32) mmol/L BUN (7-17) mg/dL Creatinine (0.52-1.04) mg/dL Estimated GFR (>60) mL/min BUN/Creatinine Ratio (6-22) Glucose (80-110) mg/dL Calcium (8.4-10.2) mg/dL Total Bilirubin (0.2-1.3) mg/dL AST (14-36) IU/L ALT (9-52) IU/L Alkaline Phosphatase (38-126) U/L Total Protein (6.3-8.2) g/dL Albumin (3.5-5.0) g/dL Globulin (1.7-4.1) g/dL Albumin/Globulin Ratio (1.0-2.8) Lipase (23-300) U/L Urine RBC 0-1/hpf (0-5/HPF) Urine WBC 10-30/hpf H (0-5/HPF) Ur Squamous Epith Cells 1-5 /hpf (0-5/HPF) Ur Transition Epith Cell 1-5/hpf (0-5/HPF) Urine Bacteria Few (2-10) H (None) Ur Culture Indicated? Specimen cultured Point of care testing: Urine Dip Bedside Urine Glucose Negative Bedside Urine Bilirubin - Negative Bedside Urine Ketone +/- 5 Urine Specific [place] 1.015 Bedside Urine Occult Blood - Negative Bedside Urine pH 6.0 Bedside Urine Protein +/- 15 Bedside Urine Urobilinogen +/- 1mg Bedside Urine Nitrite - Negative Bedside Urine Leukocytes +++ 500 Esterase Imaging Data US - abdomen: Radiologist's impression: PROCEDURE: US ABDOMEN LIMITED INDICATIONS: RIGHT UPPER QUADRANT PAIN ERCP YESTERDAY with a balloon sphincterotomy for common duct stones. Check for complications. TECHNIQUE: Real-time focused scanning was performed of the abdomen, with image documentation. COMPARISON: [facility], MR, MR ABDOMEN WO CON, 12/27/2018, 8:07. [facility], CR, XR ERC BILIARY DUCT, 02/24/2019, 16:02. FINDINGS: The gallbladder surgically absent. The biliary tree is dilated, as before. The common bile duct measures up to 15 mm. The common hepatic duct measures 10 mm. The right hepatic duct measures 5 mm. The left hepatic duct measures 6 mm. No stones identified. No obvious fluid collections. IMPRESSION: 1. Chronically dilated bile ducts. No obvious biliary stones. 2. Remote cholecystectomy. Comment: CT, which has already been ordered, is a better test for looking for evidence of bile duct injury. Comment: Findings were discussed with Dr. Aaron at the time of study dictation. Dictated by: Giovanny Ponce M.D. on 02/25/2019 at 20:54 CT scan - abdomen: Radiologist's impression: PROCEDURE: CT ABDOMEN PELVIS W CON INDICATIONS: ab pain s/p ERCP with balloon sphincterotomy yesterday TECHNIQUE: After the administration of oral and intravenous contrast, 5 mm thick sections acquired from the diaphragms to the symphysis. 5 mm thick coronal and sagittal reformats were performed. For radiation dose reduction, the following was used: automated exposure control, adjustment of mA and/or kV according to patient size. COMPARISON: [facility], MR, MR ABDOMEN WO CON, 12/27/2018, 8:07. [facility], CT, ABDOMEN/PELVIS WITH CONTRAST, 02/29/2016, 8:51. FINDINGS: Image quality: Excellent. ABDOMEN: Lung bases: Lung bases are clear. Heart size is normal. Small hiatal hernia. Solid organs: Liver is normal in size and enhancement. Gallbladder is surgic ally absent. Again noted is dilatation of the extrahepatic ducts and central intrahepatic ducts. There is minimal air within the biliary tree, consistent with recent balloon sphincterotomy. There is no free fluid or fluid collection. There is no evidence of biliary leak. Pancreas enhances normally. Multiple tiny hypodensities in the spleen are somewhat more prominent than on the previous CT. This may be secondary to differences in technique. These are typically benign lesions. No adrenal nodules. Kidneys are normal in size and enhancement, without hydronephrosis. Peritoneum and bowel: Stomach, small bowel, and colon loops are normal in caliber and wall thickness. No free fluid or air or abscess cavity. Sigmoid diverticulosis without evidence of diverticulitis.4 Nodes and vessels: No retroperitoneal or mesenteric adenopathy. Aorta and inferior vena cava are normal in caliber. Miscellaneous: No ventral hernias. PELVIS: Genitourinary: Bladder wall thickness is normal. Miscellaneous: No inguinal hernias or adenopathy. Bones: No suspicious bony lesions. No vertebral body compression fractures. Extensive lumbar degenerative change with severe canal stenosis at L4-L5. IMPRESSION: 1. No evidence of acute complication following yesterday's ERCP with sphincterotomy. 2. Dilatation of the extrahepatic duct and central intrahepatic ducts. 3. Numerous tiny hypodensities in the spleen likely represent benign lesions. 4. Sigmoid diverticulosis. Dictated by: Giovanny Ponce M.D. on 02/25/2019 at 21:44 ECG Data Attestation: I personally reviewed and interpreted this ECG as follows: Prior ECG tracings: available for review Interpretation: Normal sinus rhythm rate 67 p.r. interval 172 she are S1 O2 QTC [address] elevations depressions or T-wave inversions. MDM Narrative Medical decision making narrative: Patient overall is feeling much better after Dilaudid. I spoke briefly with radiologist after the ultrasound patient will need a CT. CT does not show any biliary duct injury. Patient's blood work is overall reassuring. Patient has been ambulatory to the restroom without any difficulty. Unknown what cause of her intense pain was today. Discharge Plan Departure Patient Disposition: Home Clinical Impression: Abdominal pain Qualifiers: Abdominal location: epigastric Qualified Code(s): R10.13 - Epigastric pain Discharge Date/Time: 02/25/19 22:40 Instructions: DI for Abdominal Pain-Adult Activity Restrictions/Additional Instructions: *You have been diagnosed with abdominal pain *What to do: I have spoken with GI doctor, ultrasound blood work and CT scan are reassuring today. If you should have further issues please call your GI doctor *Continue to take medications as directed *Follow up with your primary care provider in 2-3 days *Return to ER if you should have increasing abdominal pain persistent vomit or any new, worsening or concerning symptoms Prescriptions: No Action aspirin 81 MG tablet,delayed release (DR/EC) 81 mg PO Q DAY Qty: 0 RF: 0 lorazepam 0.5 mg tablet 0.5 mg PO SEE INSTRUCTIONS Qty: 4 RF: 0 furosemide 20 mg tablet 20 mg PO DAILY Qty: 90 RF: 3 irbesartan 75 mg tablet 75 mg PO DAILY Qty: 90 RF: 3 acyclovir 400 mg tablet 400 mg PO TID Qty: 30 RF: 0 Referrals: Crow Montgomery MD [Non-Staff] - Christina Leiva DO [Primary Care Provider] -
--- NOTE | 2019-02-25 19:18 | DI.US.S_ITS ---
PROCEDURE: US ABDOMEN LIMITED INDICATIONS: RIGHT UPPER QUADRANT PAIN ERCP YESTERDAY with a balloon sphincterotomy for common duct stones. Check for complications. TECHNIQUE: Real-time focused scanning was performed of the abdomen, with image documentation. COMPARISON: [facility], MR, MR ABDOMEN WO CON, 12/27/2018, 8:07. [facility], CR, XR ERC BILIARY DUCT, 02/24/2019, 16:02. FINDINGS: The gallbladder surgically absent. The biliary tree is dilated, as before. The common bile duct measures up to 15 mm. The common hepatic duct measures 10 mm. The right hepatic duct measures 5 mm. The left hepatic duct measures 6 mm. No stones identified. No obvious fluid collections. IMPRESSION: 1. Chronically dilated bile ducts. No obvious biliary stones. 2. Remote cholecystectomy. Comment: CT, which has already been ordered, is a better test for looking for evidence of bile duct injury. Comment: Findings were discussed with Dr. Aaron at the time of study dictation. Dictated by: Giovanny Ponce M.D. on 02/25/2019 at 20:54 Approved by: Giovanny Ponce M.D. on 02/25/2019 at 21:01
[2019-02-25 19:23] LABS: Add Manual Diff / Slide Review NO; Basophils Absolute Auto 100 /uL (0-100); Basophils Percent Auto 0.6 % (0-2); Eosinophils Absolute Auto 100 /uL (0-450); Hematocrit 37.6 % (36-46); Hemoglobin 12.4 g/dL (12.0-16.0); Lymphocytes Absolute Auto 3200 /uL (1100-4500); Lymphocytes Percent Auto 33.8 % (25-40); Mean Corpuscular HGB Conc 32.9 % (30-36); Mean Corpuscular Hemoglobin 29.1 PG (26-34); Mean Corpuscular Volume 88.6 fL (80-100); Monocytes Absolute Auto 800 /uL (0-900); Monocytes Percent Auto 8.4 % (3-14); Neutrophils Absolute Auto 5300 /uL (1500-7000); Neutrophils Percent Auto 56.2 % (50-75); Platelet Count 158 X10^3/uL (150-400); Red Blood Cell Count 4.25 X10^6/uL (4.0-5.2); Red Cell Distribution Width 13.4 % (11.6-14.8); White Blood Cell Count 9.5 X10^3/uL (4.5-11.0)
[2019-02-25 19:30] LABS: Prothrombin Time 11.9 SECONDS (10.1-12.7)
[2019-02-25 19:32] LABS: PTT Partial Thromboplastin Tim 29 SECONDS (26.4-36.2)
[2019-02-25 19:34] LABS: Alanine Aminotransferase 37 IU/L (9-52); Albumin 3.7 g/dL (3.5-5.0); Albumin Globulin Ratio 1.8 (1.0-2.8); Alkaline Phosphatase 77 U/L (38-126); Aspartate Aminotransferase 74 IU/L (14-36); BUN Creatinine Ratio 23.8 (6-22); Bilirubin Total 0.6 mg/dL (0.2-1.3); Blood Urea Nitrogen 19 mg/dL (7-17); Calcium 9.9 mg/dL (8.4-10.2); Carbon Dioxide 26 mmol/L (22-32); Chloride 105 mmol/L (98-107); Estimated Glomerular Filt Rate > 60.0 mL/min (>60); Globulin 2.1 g/dL (1.7-4.1); Glucose 136 mg/dL (80-110); HEMOLYSIS < 15 (0-50); Lipase 57 U/L (23-300); Potassium 3.6 mmol/L (3.4-5.1); Sodium 138 mmol/L (137-145); Total Protein 5.8 g/dL (6.3-8.2)
--- NOTE | 2019-02-25 20:45 | DI.CT.S_ITS ---
PROCEDURE: CT ABDOMEN PELVIS W CON INDICATIONS: ab pain s/p ERCP with balloon sphincterotomy yesterday TECHNIQUE: After the administration of oral and intravenous contrast, 5 mm thick sections acquired from the diaphragms to the symphysis. 5 mm thick coronal and sagittal reformats were performed. For radiation dose reduction, the following was used: automated exposure control, adjustment of mA and/or kV according to patient size. COMPARISON: [facility], MR, MR ABDOMEN WO CON, 12/27/2018, 8:07. [facility], CT, ABDOMEN/PELVIS WITH CONTRAST, 02/29/2016, 8:51. FINDINGS: Image quality: Excellent. ABDOMEN: Lung bases: Lung bases are clear. Heart size is normal. Small hiatal hernia. Solid organs: Liver is normal in size and enhancement. Gallbladder is surgically absent. Again noted is dilatation of the extrahepatic ducts and central intrahepatic ducts. There is minimal air within the biliary tree, consistent with recent balloon sphincterotomy. There is no free fluid or fluid collection. There is no evidence of biliary leak. Pancreas enhances normally. Multiple tiny hypodensities in the spleen are somewhat more prominent than on the previous CT. This may be secondary to differences in technique. These are typically benign lesions. No adrenal nodules. Kidneys are normal in size and enhancement, without hydronephrosis. Peritoneum and bowel: Stomach, small bowel, and colon loops are normal in caliber and wall thickness. No free fluid or air or abscess cavity. Sigmoid diverticulosis without evidence of diverticulitis.4 Nodes and vessels: No retroperitoneal or mesenteric adenopathy. Aorta and inferior vena cava are normal in caliber. Miscellaneous: No ventral hernias. PELVIS: Genitourinary: Bladder wall thickness is normal. Miscellaneous: No inguinal hernias or adenopathy. Bones: No suspicious bony lesions. No vertebral body compression fractures. Extensive lumbar degenerative change with severe canal stenosis at L4-L5. IMPRESSION: 1. No evidence of acute complication following yesterday's ERCP with sphincterotomy. 2. Dilatation of the extrahepatic duct and central intrahepatic ducts. 3. Numerous tiny hypodensities in the spleen likely represent benign lesions. 4. Sigmoid diverticulosis. Dictated by: Giovanny Ponce M.D. on 02/25/2019 at 21:44 Approved by: Giovanny Ponce M.D. on 02/25/2019 at 21:54
[2019-02-25 21:24] VITALS: BP 124/52; PULSE 63; O2SAT 98
[2019-02-25 21:32] LABS: Bacteria Urine Few (2-10); Culture Indicated Urine Specimen Cultured; RBC Urine 0-1/HPF (0-5/HPF); Squamous Epithelial Cell Urine 1-5 /HPF (0-5/HPF); Transitional Epi Cells Urine 1-5/HPF (0-5/HPF); WBC Urine 10-30/HPF (0-5/HPF)
[2019-02-25 22:38] VITALS: BP 128/60; PULSE 58; RESP 12; O2SAT 100
== END 2019-02-25 22:40 | disposition home or self-care (01) ==
PROVIDERS: Emergency Provider Emergency Medicine; PCP Family Medicine
DX: R10.13 Epigastric pain (principal)
CPT/HCPCS: 36415; 74177; 76705; 80053; 81003; 81015; 83690; 85025; 85610; 85730; 87086; 93005; 99283; 99285; J1170; J2405; Q9967

== ENCOUNTER → 2019-06-12 09:32 | Outpatient (CLI) | payer MEDICARE, SELFPAY ==
--- NOTE | 2019-06-12 | DI.MG.S_ITS ---
BILATERAL DIGITAL SCREENING MAMMOGRAM 3D/2D WITH CAD: 06/12/2019 CLINICAL: Routine screening. Comparison is made to exams dated: 06/11/2018 mammogram, 06/26/2017 mammogram, and 06/07/2017 mammogram - [facility]. There are scattered fibroglandular elements in both breasts. Current study was also evaluated with a Computer Aided Detection (CAD) system. No significant masses, calcifications, or other findings are seen in either breast. There has been no significant interval change. IMPRESSION: NEGATIVE There is no mammographic evidence of malignancy. A 1 year screening mammogram is recommended. This exam was interpreted at Station ID: [id number]. NOTE: For mammograms, a report in lay terms will be sent to the patient. Approximately 15% of breast malignancies will not be visualized mammographically. In the management of a palpable breast mass, a negative mammogram must not discourage biopsy of a clinically suspicious lesion. Electronically Signed By: Nayeli laird/lester:06/12/2019 10:11:25 letter sent: Normal Exam ACR BI-RADS Category 1: Negative 3341F
== END ==
PROVIDERS: PCP Family Medicine; Visit Provider Family Medicine
DX: Z12.31 Encounter for screening mammogram for malignant neoplasm of breast (principal)
CPT/HCPCS: 77063; 77067

== ENCOUNTER → 2019-10-30 13:08 | Outpatient (CLI) | payer MEDICARE, SELFPAY ==
--- NOTE | 2019-10-30 13:10 | DI.MRI.S_ITS ---
PROCEDURE: MR SHOULDER RT WO CON INDICATIONS: Right shoulder Pain TECHNIQUE: Noncontrast oblique coronal T2 fast spin echo with fat saturation, oblique sagittal T1 spin echo and T2 fast spin echo with fat saturation, axial T1 spin echo and T2 fast spin echo with fat saturation through the shoulder. COMPARISON: [facility], MR, SHOULDER WITHOUT CONTRAST, 08/29/2017, 12:06. FINDINGS: Image quality: Excellent. Rotator cuff: Supraspinatus tendinopathy with partial thickness articular and bursal sided tear. No definite full-thickness defect is identified. There is also severe infraspinatus tendinopathy with partial-thickness bursal sided tear and articular surface fraying. Teres minor appears intact. Subscapularis tendinopathy and low-grade partial-thickness articular sided tear. Atrophy of the supraspinatus muscle. Fatty infiltration of the supraspinatus and infraspinatus muscles. Bones and bursae: No bone marrow contusions or fractures. Moderate hypertrophic acromioclavicular joint degeneration. Glenohumeral joint degeneration also noted. Acromion demonstrates conventional anatomy, without an os acromiale. Severe subacromial-subdeltoid bursitis. Capsule and soft tissues: Labrum: Superior labrum is markedly frayed and ill-defined, although this could be chronic/age-related. Blunted appearance of the posterior labrum and inferior labrum, likely reflecting chronic tear versus advanced degeneration. Posterior subluxed appearance of the humeral head relative to the glenoid raising the possibility of microinstability. Long head of the biceps tendon intact. The rotator interval appears normal, without fibrosis. Coracohumeral ligament intact. IMPRESSION: Supraspinatus and tendinopathy with partial-thickness articular and bursal sided tear. No definite full-thickness defect seen. Severe infraspinatus tendinopathy with partial-thickness bursal sided tear, and minimal articular surface fraying Subscapularis tendinopathy with low-grade partial-thickness articular sided tear. Atrophy of the supraspinatus muscle Severe subacromial-subdeltoid bursitis Superior and posterior labral fraying and degeneration with blunted appearance. This likely reflects chronic labral tear and/or advanced degeneration. Posterior subluxed appearance of the humeral head relative to the glenoid suggests the possibility of microinstability Dictated by: Delgado Sandhu M.D. on 10/30/2019 at 15:40 Approved by: Delgado Sandhu M.D. on 10/30/2019 at 15:49
== END ==
PROVIDERS: PCP Family Medicine; Referring Provider Family Medicine; Visit Provider Family Medicine
DX: M25.511 Pain in right shoulder (principal); M75.111 Incomplete rotator cuff tear or rupture of right shoulder, not specified as traumatic; M75.51 Bursitis of right shoulder; M62.511 Muscle wasting and atrophy, not elsewhere classified, right shoulder
CPT/HCPCS: 73221

== ENCOUNTER → 2019-11-04 08:46 | Outpatient (CLI) | payer MEDICARE, SELFPAY ==
[2019-11-04 10:03] LABS: Hemoglobin A1C% w Est Avg Glu 5.6 % (4.0-6.0)
[2019-11-04 10:16] LABS: Alanine Aminotransferase 20 IU/L (<35); Albumin 3.8 g/dL (3.5-5.0); Albumin Globulin Ratio 1.7 (1.0-2.8); Alkaline Phosphatase 115 U/L (38-126); Aspartate Aminotransferase 34 IU/L (14-36); BUN Creatinine Ratio 21.9 (6-22); Bilirubin Total 0.5 mg/dL (0.2-1.3); Blood Urea Nitrogen 14 mg/dL (7-17); Carbon Dioxide 27 mmol/L (22-32); Chloride 108 mmol/L (98-107); Cholesterol 147 mg/dL (140-199); Estimated Glomerular Filt Rate > 60.0 mL/min (>60); Globulin 2.2 g/dL (1.7-4.1); Glucose 96 mg/dL (80-110); HDL Cholesterol 49 mg/dL (40-60); HEMOLYSIS < 15 (0-50); LDL Cholesterol Calculated 87 mg/dL (<100); Potassium 3.8 mmol/L (3.4-5.1); Sodium 139 mmol/L (137-145); Triglycerides 53 mg/dL (35-150)
== END ==
PROVIDERS: PCP Family Medicine; Referring Provider Family Medicine; Visit Provider Family Medicine
DX: E11.3293 Type 2 diabetes mellitus with mild nonproliferative diabetic retinopathy without macular edema, bilateral (principal); I10 Essential (primary) hypertension
CPT/HCPCS: 36415; 80053; 80061; 83036

== ENCOUNTER → 2020-05-30 15:50 | Outpatient (CLI) | payer MEDICARE, SELFPAY ==
[2020-05-30 16:32] LABS: Influenza A - CEPHEID Flu A NEGATIVE (NEGATIVE); Influenza B - CEPHEID Flu B NEGATIVE (NEGATIVE)
[2020-05-30 16:52] LABS: COVID19 -Nasal RAPID Negative (Negative)
== END ==
PROVIDERS: PCP Family Medicine; Visit Provider Physician Assistant
DX: Z20.822 Contact with and (suspected) exposure to COVID-19 (principal); R68.89 Other general symptoms and signs
CPT/HCPCS: 87502; 87635

== ENCOUNTER → 2020-05-30 16:07 | Outpatient (CLI) | payer MEDICARE, SELFPAY ==
--- NOTE | 2020-05-30 16:15 | DI.RAD.S_ITS ---
PROCEDURE: XR CHEST 2V INDICATIONS: cough, fever r/o pneumonia TECHNIQUE: 2 views of the chest were acquired. COMPARISON: [facility], CR, XR CHEST 1V, 10/16/2018, 11:10. FINDINGS: Surgical changes and devices: Cholecystectomy clips are seen. Lungs and pleura: Lungs are clear. No pleural effusions or pneumothorax. Mediastinum: Mediastinal contours are normal. Heart size is normal. Bones and chest wall: No suspicious bony abnormalities. Age-appropriate bony degenerative changes are seen. Mild dextroconvex scoliotic curvature is seen. Soft tissues appear unremarkable. IMPRESSION: No focal infiltrates are seen. Dictated by: Augusto Palafox M.D. on 05/30/2020 at 15:32 Approved by: Augusto Palafox M.D. on 05/30/2020 at 15:32
== END ==
PROVIDERS: PCP Family Medicine; Referring Provider Physician Assistant; Visit Provider Physician Assistant
DX: R05 Cough (principal); R50.9 Fever, unspecified; R68.89 Other general symptoms and signs; Z20.822 Contact with and (suspected) exposure to COVID-19
CPT/HCPCS: 71046; 87502; 87635

== ENCOUNTER → 2020-06-15 10:42 | Outpatient (CLI) | payer MEDICARE, SELFPAY ==
--- NOTE | 2020-06-15 10:44 | DI.MG.S_ITS ---
BILATERAL DIGITAL SCREENING MAMMOGRAM 3D/2D WITH CAD: 06/15/2020 CLINICAL: Routine screening. Comparison is made to exams dated: 06/12/2019 mammogram, 06/11/2018 mammogram, 06/26/2017 mammogram, and 06/07/2017 mammogram - [facility]. There are scattered fibroglandular elements in both breasts. Current study was also evaluated with a Computer Aided Detection (CAD) system. No significant masses, calcifications, or other findings are seen in either breast. There has been no significant interval change. IMPRESSION: NEGATIVE There is no mammographic evidence of malignancy. A 1 year screening mammogram is recommended. This exam was interpreted at Station ID: [id number]. NOTE: For mammograms, a report in lay terms will be sent to the patient. Approximately 15% of breast malignancies will not be visualized mammographically. In the management of a palpable breast mass, a negative mammogram must not discourage biopsy of a clinically suspicious lesion. Electronically Signed By: Tima aldrich/lester:06/15/2020 15:42:04 letter sent: Normal Exam ACR BI-RADS Category 1: Negative 3341F
== END ==
PROVIDERS: PCP Family Medicine; Referring Provider Family Medicine; Visit Provider Family Medicine
DX: Z12.31 Encounter for screening mammogram for malignant neoplasm of breast (principal)
CPT/HCPCS: 77063; 77067

== ENCOUNTER → 2020-07-13 07:26 | Outpatient (CLI) | payer MEDICARE, SELFPAY ==
[2020-07-13 08:54] LABS: BUN Creatinine Ratio 41.1 (6-22); Blood Urea Nitrogen 30 mg/dL (7-17); Carbon Dioxide 28 mmol/L (22-32); Chloride 107 mmol/L (98-107); Estimated Glomerular Filt Rate > 60.0 mL/min (>60); Glucose 102 mg/dL (80-110); HEMOLYSIS < 15 (0-50); Potassium 3.9 mmol/L (3.4-5.1); Sodium 138 mmol/L (137-145)
[2020-07-13 08:56] LABS: Hemoglobin A1C% w Est Avg Glu 5.7 % (4.0-6.0)
[2020-07-13 09:21] LABS: TSH w/ Reflex to FT4 2.27 uIU/mL (0.47-4.68)
== END ==
PROVIDERS: PCP Family Medicine; Referring Provider Family Medicine; Visit Provider Family Medicine
DX: E11.319 Type 2 diabetes mellitus with unspecified diabetic retinopathy without macular edema (principal); I10 Essential (primary) hypertension
CPT/HCPCS: 36415; 80048; 83036; 84443

== ENCOUNTER → 2020-11-09 11:02 | Outpatient (CLI) | payer MEDICARE, SELFPAY ==
[2020-11-09 13:11] LABS: BUN Creatinine Ratio 21.3 (6-22); Blood Urea Nitrogen 17 mg/dL (7-17); Calcium 10.4 mg/dL (8.4-10.2); Carbon Dioxide 27 mmol/L (22-32); Chloride 106 mmol/L (98-107); Estimated Glomerular Filt Rate > 60.0 mL/min (>60); Glucose 103 mg/dL (80-110); HEMOLYSIS < 15 (0-50); Potassium 4.2 mmol/L (3.4-5.1); Sodium 139 mmol/L (137-145)
== END ==
PROVIDERS: PCP Family Medicine; Referring Provider Family Medicine; Visit Provider Family Medicine
DX: I10 Essential (primary) hypertension (principal)
CPT/HCPCS: 36415; 80048

== ENCOUNTER → 2020-11-27 09:24 | Outpatient (CLI) | payer MEDICARE, SELFPAY ==
[2020-11-27 12:05] LABS: COVID19 -Nasal RAPID Negative (Negative)
== END ==
PROVIDERS: PCP Family Medicine; Visit Provider Physician Assistant
DX: Z01.812 Encounter for preprocedural laboratory examination (principal); Z20.822 Contact with and (suspected) exposure to COVID-19
CPT/HCPCS: 87635; C9803

== ENCOUNTER 2020-11-30 06:55 | Day surgery (SDC) | payer MEDICARE, SELFPAY ==
[2020-11-30] MEDS: CATARACT EYE COMPOUND (10 DROPS/SYRINGE) 3 DROPS EYE-OP (07:22)
[2020-11-30] MEDS: PROPARACAINE 0.5% OPHTH SOL 2 DROPS EYE-OP (07:22)
[2020-11-30 07:27] VITALS: BP 138/90; PULSE 72; RESP 16; TEMP 36.2; O2SAT 98
--- NOTE | 2020-11-30 08:02 | PM.PREOP ---
Pre-operative Note Interval Note History & Physical reviewed/Exam performed by Physician: Yes Changes to H&P: No
--- NOTE | 2020-11-30 08:02 | PM.OP.1 ---
Operative Date/Time/Diagnoses Pre-op diagnosis: Nuclear Cataract Left eye Post-op diagnosis: same Procedure & Clinicians Same procedure as scheduled: Yes Surgeon: Abel Fermin Anesthesia Type: MAC +/- and Sedation Operative Notes Procedure in detail: Patient brought to the operating suite. Tetracaine drops placed in the left eye. Patient was prepped and draped in sterile manner. Wire lid speculum was placed in the eye. Betadine drops were placed on the eye. This was irrigated. Lidocaine jelly was placed on the eye. A paracentesis port was created with a side-port blade. 0.1 mL 1% preservative free lidocaine was injected into the anterior chamber. The anterior chamber was deepened with viscoelastic. 2.6 mm keratome was used to create a temporal clear corneal incision. Cystotome and Utrata forceps were used to create continuous tear capsulorrhexis. Balanced salt solution was used to hydro dissect the nucleus. The phacoemulsification handpiece was inserted and the nucleus was removed using the stop and chop technique. The irrigation aspiration handpiece was inserted and the remaining cortex was removed. Anterior chamber was deepened with viscoelastic. An Connolly DIB00 intraocular lens with a power of 18.0 was injected into the capsular bag. Irrigation aspiration handpiece was inserted and the remaining viscoelastic was removed. Incision was hydrated with balanced salt solution and found to be leak free with pressure with Weck-Gayle sponges. 0.1 mL Vigamox injected anterior chamber. 0.3 mL Kenalog 10 mg was injected subconjunctivally. Lid speculum was removed. The patient left the operating room in excellent condition. Complications: none Post-operative Condition: stable Disposition: same day surgery
[2020-11-30] MEDS: MOXIFLOXACIN INJ 4 MG/0.8 ML VIAL 0.5 MG EYE-OP (08:21)
[2020-11-30] MEDS: PHENYLEPHRINE/LIDOCAINE VIAL (OR) 0.2 ML EYE-OP (08:21)
[2020-11-30] MEDS: LIDOCAINE 2% (GLYDO) 6 ML GEL TOP (08:22)
[2020-11-30] MEDS: CHONDROIDTIN/SOD HYALURONATE 1.05 ML SYRINGE INTRAOCULA (08:22)
[2020-11-30] MEDS: TRIAMCINOLONE 50 MG/5 ML VIAL INJ (08:22)
[2020-11-30] MEDS: TETRACAINE 0.5% OPHTH DROPS 4 ML 2 DROPS EYE-OP (08:22)
[2020-11-30] MEDS: BALANCED SALT IRRIG SOLN NO.2 500 ML, EPINEPHrine 1 MG IRR (08:23)
[2020-11-30 08:36] VITALS: BP 130/82; PULSE 69; RESP 16; TEMP 36.2; O2SAT 95
== END 2020-11-30 08:40 | disposition home or self-care (01) ==
PROVIDERS: PCP Family Medicine; Referring Provider Ophthalmology; Visit Provider Ophthalmology
PROC: (CPT 66984; principal; 2020-11-30 08:15)
DX: H25.12 Age-related nuclear cataract, left eye (principal); I10 Essential (primary) hypertension
CPT/HCPCS: 66984; J0171; J2250; J3301

== ENCOUNTER → 2020-12-13 09:52 | Outpatient (CLI) | payer MEDICARE, SELFPAY ==
[2020-12-13 11:48] LABS: COVID19 -Nasal RAPID Negative (Negative)
== END ==
PROVIDERS: PCP Family Medicine; Visit Provider Physician Assistant
DX: Z01.812 Encounter for preprocedural laboratory examination (principal); Z20.822 Contact with and (suspected) exposure to COVID-19
CPT/HCPCS: 87635; C9803

== ENCOUNTER 2020-12-14 06:25 | Day surgery (SDC) | payer MEDICARE, SELFPAY ==
[2020-12-14] MEDS: PROPARACAINE 0.5% OPHTH SOL 2 DROPS EYE-OP (06:45)
[2020-12-14] MEDS: CATARACT EYE COMPOUND (10 DROPS/SYRINGE) 3 DROPS EYE-OP (06:46)
[2020-12-14 06:48] VITALS: BP 142/83; PULSE 69; RESP 18; TEMP 36.6; O2SAT 97; BMI 27.8
--- NOTE | 2020-12-14 07:27 | PM.PREOP ---
Pre-operative Note Interval Note History & Physical reviewed/Exam performed by Physician: Yes Changes to H&P: No
--- NOTE | 2020-12-14 07:28 | PM.OP.1 ---
Operative Date/Time/Diagnoses Pre-op diagnosis: Nuclear cataract right eye Procedure & Clinicians Procedure: Cataract Surgery Same procedure as scheduled: Yes Surgeon: Abel Fermin Anesthesia Type: MAC +/- and Sedation Operative Notes Procedure in detail: Patient brought to the operating suite. Tetracaine drops placed in the right eye. Patient was prepped and draped in sterile manner. Wire lid speculum was placed in the eye. Betadine drops were placed on the eye. This was irrigated. Lidocaine jelly was placed on the eye. A paracentesis port was created with a side-port blade. 0.1 mL 1% preservative free lidocaine was injected into the anterior chamber. The anterior chamber was deepened with viscoelastic. 2.6 mm keratome was used to create a temporal clear corneal incision. Cystotome and Utrata forceps were used to create continuous tear capsulorrhexis. Balanced salt solution was used to hydro dissect the nucleus. The phacoemulsification handpiece was inserted and the nucleus was removed using the stop and chop technique. The irrigation aspiration handpiece was inserted and the remaining cortex was removed. Anterior chamber was deepened with viscoelastic. An Connolly DIB00 intraocular lens with a power of 18.0 was injected into the capsular bag. Irrigation aspiration handpiece was inserted and the remaining viscoelastic was removed. Incision was hydrated with balanced salt solution and found to be leak free with pressure with Weck-Gayle sponges. 0.1 mL Vigamox injected anterior chamber. 0.3 mL Kenalog 10 mg was injected subconjunctivally. Lid speculum was removed. The patient left the operating room in excellent condition. Complications: none Post-operative Condition: stable Disposition: same day surgery
[2020-12-14] MEDS: LIDOCAINE 2% (GLYDO) 6 ML GEL TOP (07:48)
[2020-12-14] MEDS: CHONDROIDTIN/SOD HYALURONATE 1.05 ML SYRINGE INTRAOCULA (07:48)
[2020-12-14] MEDS: MOXIFLOXACIN INJ 4 MG/0.8 ML VIAL 0.5 MG EYE-OP (07:48)
[2020-12-14] MEDS: TRIAMCINOLONE 50 MG/5 ML VIAL INJ (07:49)
[2020-12-14] MEDS: TETRACAINE 0.5% OPHTH DROPS 4 ML 2 DROPS EYE-OP (07:49)
[2020-12-14] MEDS: PHENYLEPHRINE/LIDOCAINE VIAL (OR) 0.2 ML EYE-OP (07:49)
[2020-12-14] MEDS: BALANCED SALT IRRIG SOLN NO.2 500 ML, EPINEPHrine 1 MG IRR (07:50)
[2020-12-14 08:06] VITALS: BP 143/82; PULSE 69; RESP 16; TEMP 36.4; O2SAT 99
--- NOTE | 2020-12-14 08:14 | SUR.PHASEII ---
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
== END 2020-12-14 08:21 | disposition home or self-care (01) ==
PROVIDERS: PCP Family Medicine; Referring Provider Ophthalmology; Visit Provider Ophthalmology
PROC: (CPT 66984; principal; 2020-12-14 07:45)
DX: H25.11 Age-related nuclear cataract, right eye (principal); I10 Essential (primary) hypertension; E11.9 Type 2 diabetes mellitus without complications
CPT/HCPCS: 66984; J0171; J2250; J3301

== ENCOUNTER → 2020-12-19 10:05 | Outpatient (ROUT) | payer MEDICARE, SELFPAY ==
[2020-12-19 10:34] LABS: COVID19 -Nasal RAPID Negative (Negative)
== END ==
PROVIDERS: PCP Family Medicine; Visit Provider Nurse Practitioner
DX: Z20.822 Contact with and (suspected) exposure to COVID-19 (principal)
CPT/HCPCS: 87635

== ENCOUNTER → 2021-04-26 06:54 | Outpatient (CLI) | payer MEDICARE, SELFPAY ==
[2021-04-26 09:32] LABS: Hemoglobin A1C% w Est Avg Glu 5.3 % (4.0-6.0)
[2021-04-26 10:09] LABS: Blood Urea Nitrogen 30 mg/dL (7-17); Carbon Dioxide 31 mmol/L (22-32); Chloride 105 mmol/L (98-107); Estimated Glomerular Filt Rate > 60.0 mL/min (>60); Glucose 83 mg/dL (80-110); HEMOLYSIS < 15 (0-50); Sodium 140 mmol/L (137-145)
== END ==
PROVIDERS: PCP Family Medicine; Referring Provider Family Medicine; Visit Provider Family Medicine
DX: E11.319 Type 2 diabetes mellitus with unspecified diabetic retinopathy without macular edema (principal); E66.3 Overweight; I10 Essential (primary) hypertension
CPT/HCPCS: 36415; 80048; 83036

== ENCOUNTER → 2021-06-18 11:06 | Outpatient (CLI) | payer MEDICARE, SELFPAY ==
--- NOTE | 2021-06-18 11:07 | DI.MG.S_ITS ---
BILATERAL DIGITAL SCREENING MAMMOGRAM 3D/2D WITH CAD: 06/18/2021 CLINICAL: Routine screening. Comparison is made to exams dated: 06/15/2020 mammogram, 06/12/2019 mammogram, and 06/11/2018 mammogram - [facility]. There are scattered fibroglandular elements in both breasts. Current study was also evaluated with a Computer Aided Detection (CAD) system. No significant masses, calcifications, or other findings are seen in either breast. There has been no significant interval change. IMPRESSION: NEGATIVE There is no mammographic evidence of malignancy. A 1 year screening mammogram is recommended. This exam was interpreted at Station ID: [id number]. NOTE: For mammograms, a report in lay terms will be sent to the patient. Approximately 15% of breast malignancies will not be visualized mammographically. In the management of a palpable breast mass, a negative mammogram must not discourage biopsy of a clinically suspicious lesion. Electronically Signed By: John Dumont M.D., jr/lester:06/20/2021 08:49:50 letter sent: Normal Exam ACR BI-RADS Category 1: Negative [id number]
== END ==
PROVIDERS: PCP Family Medicine; Referring Provider Family Medicine; Visit Provider Family Medicine
DX: Z12.31 Encounter for screening mammogram for malignant neoplasm of breast (principal)
CPT/HCPCS: 77063; 77067

== ENCOUNTER → 2021-11-19 08:34 | Outpatient (CLI) | payer MEDICARE, SELFPAY ==
[2021-11-19 09:32] LABS: Add Manual Diff / Slide Review NO; Basophils Absolute Auto 0 /uL (0-100); Eosinophils Absolute Auto 100 /uL (0-450); Eosinophils Percent Auto 2.3 % (2-4); Hematocrit 39.1 % (36-46); Hemoglobin 13.1 g/dL (12.0-16.0); Lymphocytes Absolute Auto 1600 /uL (1100-4500); Lymphocytes Percent Auto 35.6 % (25-40); Mean Corpuscular HGB Conc 33.6 % (30-36); Mean Corpuscular Hemoglobin 29.6 PG (26-34); Mean Corpuscular Volume 87.9 fL (80-100); Monocytes Absolute Auto 500 /uL (0-900); Monocytes Percent Auto 10.8 % (3-14); Neutrophils Absolute Auto 2300 /uL (1500-7000); Neutrophils Percent Auto 50.3 % (50-75); Platelet Count 150 X10^3/uL (150-400); Red Blood Cell Count 4.44 X10^6/uL (4.0-5.2); Red Cell Distribution Width 13.9 % (11.6-14.8); White Blood Cell Count 4.6 X10^3/uL (4.5-11.0)
[2021-11-19 10:12] LABS: Alanine Aminotransferase 20 IU/L (<35); Albumin Globulin Ratio 1.9 (1.0-2.8); Alkaline Phosphatase 92 U/L (38-126); Aspartate Aminotransferase 31 IU/L (14-36); BUN Creatinine Ratio 32.5 (6-22); Bilirubin Total 0.8 mg/dL (0.2-1.3); Blood Urea Nitrogen 26 mg/dL (7-17); Calcium 9.6 mg/dL (8.4-10.2); Carbon Dioxide 25 mmol/L (22-32); Chloride 108 mmol/L (98-107); Estimated Glomerular Filt Rate > 60 mL/min (>60); Globulin 2.1 g/dL (1.7-4.1); Glucose 84 mg/dL (80-110); HEMOLYSIS < 15 (0-50); Potassium 3.8 mmol/L (3.4-5.1); Sodium 139 mmol/L (137-145); Total Protein 6.1 g/dL (6.3-8.2)
== END ==
PROVIDERS: PCP Pediatrics; Referring Provider Pediatrics; Visit Provider Pediatrics
DX: B20 Human immunodeficiency virus [HIV] disease (principal); E11.8 Type 2 diabetes mellitus with unspecified complications; E11.9 Type 2 diabetes mellitus without complications; F41.8 Other specified anxiety disorders; F41.9 Anxiety disorder, unspecified; F43.10 Post-traumatic stress disorder, unspecified; I10 Essential (primary) hypertension; R53.83 Other fatigue
CPT/HCPCS: 36415; 80053; 84443; 85025

== ENCOUNTER → 2022-04-04 10:43 | Outpatient (CLI) | payer MEDICARE, SELFPAY | PROVIDERS: PCP Family Medicine; Referring Provider Pediatrics; Visit Provider Pediatrics | DX: Z13.820 Encounter for screening for osteoporosis; M85.852 Other specified disorders of bone density and structure, left thigh; Z78.0 Asymptomatic menopausal state; B20 Human immunodeficiency virus [HIV] disease; E11.9 Type 2 diabetes mellitus without complications; F43.10 Post-traumatic stress disorder, unspecified; F41.8 Other specified anxiety disorders; I10 Essential (primary) hypertension; R53.83 Other fatigue | CPT/HCPCS: 77080 ==

== ENCOUNTER → 2022-04-18 10:32 | Outpatient (CLI) | payer MEDICARE, SELFPAY ==
[2022-04-18 13:11] LABS: Cholesterol 147 mg/dL (140-199); HDL Cholesterol 57 mg/dL (40-60); LDL Cholesterol Calculated 80 mg/dL (<100); Triglycerides 51 mg/dL (35-150)
[2022-04-18 13:24] LABS: Microalbumi Creatinin Ratio Ur 28.5 ug/mg CR (<30)
[2022-04-18 18:32] LABS: Hemoglobin A1C% w Est Avg Glu 5.7 % (4.0-6.0)
== END ==
PROVIDERS: PCP Family Medicine; Referring Provider Family Medicine; Visit Provider Family Medicine
DX: E11.9 Type 2 diabetes mellitus without complications (principal); E11.3293 Type 2 diabetes mellitus with mild nonproliferative diabetic retinopathy without macular edema, bilateral
CPT/HCPCS: 36415; 80061; 82043; 82570; 83036

== ENCOUNTER 2022-06-11 12:38 | Observation (INO) | payer MEDICARE, SELFPAY ==
[2022-06-11] VITALS (19 sets, daily range): BP systolic 131–155; BP diastolic 53–79; PULSE 53–72; RESP 12–28; TEMP 36.1–36.3; O2SAT 97–100; BMI 28.3; BMI 29.0
--- NOTE | 2022-06-11 13:08 | DI.RAD.S_ITS ---
PROCEDURE: XR CHEST 1V INDICATIONS: chest pain TECHNIQUE: One view of the chest was acquired. COMPARISON: [facility], , XR CHEST 2V, 05/30/2020, 16:19. FINDINGS: Surgical changes and devices: Cholecystectomy clips are seen. Lungs and pleura: On this semiupright portable chest examination, no large pneumothorax or large pleural effusions are seen. No focal infiltrates are seen. Mediastinum: Mediastinal contours appear normal. Heart size is normal. Bones and chest wall: Age-appropriate bony degenerative changes are seen. No suspicious bony lesions. Overlying soft tissues appear unremarkable. IMPRESSION: Portable chest within normal limits for age. Postoperative and degenerative changes are seen. Dictated by: Augusto Palafox M.D. on 06/11/2022 at 13:00 Approved by: Augusto Palafox M.D. on 06/11/2022 at 13:01
[2022-06-11] MEDS: ONDANSETRON 4 MG/2 ML INJ IV (13:20)
[2022-06-11 13:37] LABS: Add Manual Diff / Slide Review NO; Basophils Absolute Auto 0 /uL (0-100); Basophils Percent Auto 0.5 % (0-2); Eosinophils Absolute Auto 0 /uL (0-450); Eosinophils Percent Auto 0.6 % (2-4); Hematocrit 41.8 % (36-46); Hemoglobin 13.5 g/dL (12.0-16.0); Lymphocytes Absolute Auto 1500 /uL (1100-4500); Lymphocytes Percent Auto 19.8 % (25-40); Mean Corpuscular HGB Conc 32.4 % (30-36); Mean Corpuscular Hemoglobin 28.6 PG (26-34); Mean Corpuscular Volume 88.4 fL (80-100); Monocytes Absolute Auto 300 /uL (0-900); Monocytes Percent Auto 3.4 % (3-14); Neutrophils Absolute Auto 5700 /uL (1500-7000); Neutrophils Percent Auto 75.7 % (50-75); Platelet Count 161 X10^3/uL (150-400); Red Blood Cell Count 4.73 X10^6/uL (4.0-5.2); Red Cell Distribution Width 13.8 % (11.6-14.8); White Blood Cell Count 7.5 X10^3/uL (4.5-11.0)
--- NOTE | 2022-06-11 13:45 | DI.CT.S_ITS ---
PROCEDURE: CT ANGIO HEAD AND NECK INDICATIONS: dizzy TECHNIQUE: Pre-contrast 4.5 mm thick sections acquired from the foramen magnum to the vertex. After the administration of intravenous contrast, 1 mm thick sections acquired from the aortic arch through the [employer] [place]. Post-contrast 4.5 mm thick sections then re-acquired from the foramen magnum to the vertex. 3-dimensional ldfvnvu-gqddjibdc-bskddaadcu (MIP) and/or volume rendering reformats were acquired of the central intracranial vasculature and neck separately. For radiation dose reduction, the following was used: automated exposure control, adjustment of mA and/or kV according to patient size. COMPARISON: None. FINDINGS: Image quality: Mild streak artifact can be seen through the skull base. BRAIN: CSF spaces: Ventricles are normal in size and shape. Basal cisterns are patent. No extra-axial fluid collections. Brain: No midline shift. No intracranial bleeds or masses. Baker-white matter interface appears intact. Skull and face: Calvarium and facial bones appear intact, without suspicious lesions. Orbits appear normal. Sinuses: Dxni-je-wcddszpp mucosal thickening is seen within the inferior right maxillary sinus. Sinuses and mastoids are otherwise clear. HEAD CT ANGIOGRAPHY: Anterior circulation: Intracranial internal carotid arteries demonstrate generalized atherosclerotic calcification and irregularity, with up to 50% narrowing seen on each side. There is a diminutive right A1 segment, with a corresponding robust left A1 segment. This is considered to be a normal developmental variant of the [place], of typically no clinical consequence. The flow within the paired anterior cerebral arteries is otherwise normal and symmetric. The flow within the middle cerebral arteries is normal and symmetric. The anterior communicating artery is seen. No aneurysms are seen. Posterior circulation: The distal right vertebral artery partially terminates in the right posterior inferior cerebellar artery. The left V4 segment demonstrates focal calcification with approximately 50% narrowing, as on series 8, image 138. There is a normal appearing basilar artery. Flow within the posterior cerebral arteries is normal and symmetric. No aneurysms are seen. NECK CT ANGIOGRAPHY: Carotid system: The great vessels demonstrate a conventional anatomy as they arise from the aortic arch. The origins of the common carotid arteries appear patent. The common carotid arteries demonstrate normal caliber and courses. The bifurcation regions are both widely patent. The internal carotid arteries demonstrate normal calibers and courses. Posterior circulation: The origins of the vertebral arteries both appear widely patent. The more superior extracranial portions of both vertebral arteries also demonstrate normal courses and calibers. The left vertebral artery is dominant to the right. Soft tissues: Visualized neck soft tissues demonstrate no suspicious abnormalities. Bones: No suspicious bony lesions. Visualized cervical spine appears normally aligned. There is straightening of the normal cervical lordosis. At least moderate cervical spine degenerative change can be seen. IMPRESSION: No imaging explanation is found for this patient's presenting symptoms. No acute intracranial process is seen. No january hemodynamically significant stenosis can be seen within the intracranial circulation. Within the arteries of the neck, no hemodynamically significant stenosis can be seen. No findings of neck artery dissection can be seen. 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 Dictated by: Augusto Palafox M.D. on 06/11/2022 at 13:40 Approved by: Augusto Palafox M.D. on 06/11/2022 at 13:44
[2022-06-11 13:50] LABS: Alanine Aminotransferase 27 IU/L (<35); Albumin Globulin Ratio 1.7 (1.0-2.8); Alkaline Phosphatase 93 U/L (38-126); Aspartate Aminotransferase 34 IU/L (14-36); BUN Creatinine Ratio 25.4 (6-22); Blood Urea Nitrogen 15 mg/dL (7-17); Calcium 9.6 mg/dL (8.4-10.2); Carbon Dioxide 24 mmol/L (22-32); Chloride 104 mmol/L (98-107); Creatine Kinase 37 U/L (30-135); Estimated Glomerular Filt Rate > 60 mL/min (>60); Globulin 2.4 g/dL (1.7-4.1); Glucose 123 mg/dL (80-110); HEMOLYSIS < 15 (0-50); Lipase 40 U/L (23-300); Magnesium 1.8 mg/dL (1.6-2.3); Potassium 3.6 mmol/L (3.4-5.1); Sodium 136 mmol/L (137-145); Total Protein 6.4 g/dL (6.3-8.2)
[2022-06-11 13:54] LABS: INR 1.1 (0.9-1.3); Prothrombin Time 12.6 SECONDS (10.1-12.7)
[2022-06-11 13:56] LABS: PTT Partial Thromboplastin Tim 28 SECONDS (26-36)
[2022-06-11 14:01] LABS: Troponin I < 0.012 ng/mL (0.01-0.034)
--- NOTE | 2022-06-11 14:01 | ED_ITS ---
HPI - Dizziness General Chief Complaint: Dizziness Stated Complaint: Dizzy, Nausea/vomiting, unable to walk Time Seen by Provider: 06/11/22 13:45 Source: patient and other Mode of arrival: Wheelchair History of Present Illness HPI Narrative: Patient is a 7-year-old female history of anxiety depression presenting today with ongoing dizziness. It has been ongoing last couple of days it started gradually over has progressively been getting worse. Today she tried to get out of bed and was unable to stand very unsteady on her feet. Multiple episodes of vomiting. Mild headache. No chest pain or palpitations. She does have some lower abdominal cramping but not significant. No diarrhea no fever or chills. No cough. She is never had any history of vertigo previously she was just seen by her PCP this week for three-month follow-up Related Data Previous Rx's Medication Instructions Recorded acyclovir 400 mg tablet 400 mg PO TID #30 tabs 07/02/20 alprazolam 0.25 mg tablet 0.125 mg PO BEDTIME PRN anxiety 03/28/22 causing insomnia #60 tabs furosemide 20 mg tablet See Rx Instructions .Route 06/07/22 .COMPLEX #90 tabs irbesartan 150 mg tablet 150 mg PO DAILY #90 tabs 06/07/22 trazodone 50 mg tablet 25 mg PO BEDTIME PRN insomnia #30 06/07/22 tabs Allergies Allergy/AdvReac Type Severity Reaction Status Date / Time No Known Drug Allergies Allergy Verified 06/11/22 13:03 Review of Systems Review of Systems ROS Unobtainable: All systems reviewed & are unremarkable except as noted in HPI and below Patient History Medical History Actinic keratosis of left cheek (02/2012) Asthma Asymptomatic PVCs Cataracts, bilateral Chicken pox Chronic back pain (~1979) Controlled type 2 diabetes mellitus without complication (2007) Depression with anxiety Diabetes type 2, controlled Fatigue Fatigue associated with AIDS Flu-like symptoms Herpes, genital (~1964) 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 Hypertension (11/05/13) Hypertension (1973) Leg pain, bilateral (2010) Measles 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 (07/13/16) Night terrors Normal Papanicolaou smear Obesity (11/05/13) Overweight (BMI 25.0-29.9) Precancerous skin lesion (~2007) Rubella Surgical History Anesthesia H/O colonoscopy with polypectomy History of arthroplasty of right knee (02/23/14) History of cataract surgery (~11/2020) History of cholecystectomy History of inguinal hernia repair History of knee replacement (2009) History of local excision of skin lesion (~2007) History of ventral hernia repair Status post cholecystectomy (1995) Status post hernia repair (2012) Family History Mother Heart disease High cholesterol Congestive heart failure Father No problems noted. Social History household members: none Smoking Status: Former smoker Smoking Status: Former smoker alcohol intake frequency: a few times a month Substance Use Type: does not use Exam Initial Vital Signs Initial Vital Signs: Vital Signs Temperature 97.0 F L 06/11/22 13:03 Pulse Rate 56 L 06/11/22 13:03 Respiratory Rate 19 06/11/22 13:03 Blood Pressure 155/79 H 06/11/22 13:03 Pulse Oximetry 99 06/11/22 13:03 Oxygen Delivery Method 06/11/22 13:03 GENERAL: Alert 77-year-old female appears to not feel well and in no acute distress. HEENT: Head atraumatic,EOMI, pupils reactive, no nystagmus face symmetric, moist mucous membranes CARDIOVASCULAR: Regular rate and rhythm without murmurs, rubs or gallops. RESPIRATORY: Breath sounds equal bilaterally, no wheezes rales or rhonchi. ABDOMEN: Soft, nontender. Normoactive bowel sounds all 4 quadrants. No guarding or rebound. EXTREMITIES: Normal range of motion, no clubbing or edema. Neurovascularly intact NEUROLOGICAL: Alert and oriented x4.Normal gait and speech. Cranial nerves II through XII grossly intact. Good fooapo-bi-ifvn, good crxd-an-nayg, strength equal bilaterally, no dysarthria or aphasia, sensation in tact to soft touch bilaterally, no visual changes, no facial droop SKIN: Warm, dry, no laceration, no petechiae, no rashes or lesions. Scores NIH Stroke Scale Level of Conciousness: Alert, keenly responsive Ask month/age: Answers both questions correctly. Open/close eyes, close hand: Performs both tasks correctly Best gaze horizontal: Normal Visual springer: No visual loss Facial palsy: Normal symetrical movement Left arm drift: No drift for full 10 sec Right arm drift: No drift for full 10 sec Left leg drift: No drift for full 5 sec Right leg drift: No drift for full 5 sec Limb ataxia: Absent Sensory on face/arms/legs: Normal, no sensory loss Best language: No aphasia, normal Dysarthria: Normal Extinction or inattention: No abnormality Total NIH Stroke scale score: 0 Course Orders Ordered: ED Orders 06/11/22 13:08 XR chest 1V Stat EKG-12 Lead Stat 06/11/22 13:23 Complete Blood Count AUTO DIFF Stat Comprehensive Metabolic Panel Stat Lipase Stat Magnesium Stat Partial Thromboplastin Time Stat Prothrombin Time INR Stat Troponin & CK Cardiac Panel Stat 06/11/22 13:45 CT angio head and neck Stat 06/11/22 16:43 Urine Microscopic Stat 06/11/22 20:22 Consult to Occupational Therapy Evaluate & Treat Consult to Physical Therapy Evaluate & Treat Education, smoking cessation ONGOING 06/12/22 05:00 Basic Metabolic Panel Routine Complete Blood Count AUTO DIFF Routine 06/12/22 07:00 MR stroke Stat Acetaminophen (Acetaminophen 325 Mg Tablet) 650 mg PO Q6H PRN PRN Reason: Fever/Mild Pain (1-3) Enoxaparin Sodium (Enoxaparin 40 Mg/0.4 Ml Syringe) 40 mg SUBCUT DAILY RONI Sodium Chloride (Normal Saline 0.9%) 1,000 mls @ 100 mls/hr IV CONT RONI Stop: 07/12/22 06:21 Meclizine HCl (Meclizine Hcl 12.5 Mg Tablet) 25 mg PO TID [facility] Naloxone HCl (Naloxone 0.4 Mg/Ml Vial) 0.2 mg IV Q2MIN PRN PRN Reason: Opiate Reversal Ondansetron HCl (Ondansetron 4 Mg Odt) 4 mg PO Q8HR PRN PRN Reason: Nausea And Vomiting Pantoprazole Sodium (Pantoprazole Dr 20 Mg Tablet) 20 mg PO 0600 RONI Discontinued Medications Sodium Chloride (Normal Saline 0.9%) 1,000 mls @ 1,000 mls/hr IV BOLUS ONE Stop: 06/11/22 14:45 Last Infusion: 06/11/22 15:39 Dose: 0 mls/hr Documented By: Admin: 06/11/22 14:26 Dose: 1,000 mls/hr Documented By: AT Lorazepam (Lorazepam 2 Mg/Ml Inj) 0.5 mg IV NOW ONE Stop: 06/11/22 13:47 Last Admin: 06/11/22 14:22 Dose: 0.5 mg Documented By: AT Meclizine HCl (Meclizine Hcl 12.5 Mg Tablet) 25 mg PO NOW ONE Stop: 06/11/22 18:14 Last Admin: 06/11/22 18:35 Dose: 25 mg Documented By: REBECCA Ondansetron HCl (Ondansetron 4 Mg/2 Ml Inj) 4 mg IV NOW PRN PRN Reason: Nausea And Vomiting Last Admin: 06/11/22 13:20 Dose: 4 mg Documented By: JIMBO Ondansetron HCl (Ondansetron 4 Mg Odt) 4 mg SL NOW PRN PRN Reason: Nausea And Vomiting Vital Signs Vital signs: Vital Signs - 8 hr 06/11/22 13:03 06/11/22 13:40 06/11/22 14:00 Temperature 97.0 F L Pulse Rate 56 L 53 L 61 Respiratory Rate 19 19 22 Blood Pressure 155/79 H Pulse Oximetry 99 97 98 Oxygen Delivery Method Room Air 06/11/22 14:30 06/11/22 14:30 06/11/22 15:00 Temperature Pulse Rate 69 72 Respiratory Rate 19 19 Blood Pressure 149/64 H Pulse Oximetry 98 97 Oxygen Delivery Method 06/11/22 15:01 06/11/22 15:01 06/11/22 15:30 Temperature Pulse Rate 65 Respiratory Rate 12 Blood Pressure 137/62 145/65 H Pulse Oximetry 98 Oxygen Delivery Method 06/11/22 15:30 06/11/22 16:00 06/11/22 16:00 Temperature Pulse Rate 71 68 Respiratory Rate 17 18 Blood Pressure 131/61 Pulse Oximetry 97 98 Oxygen Delivery Method 06/11/22 16:30 06/11/22 16:30 06/11/22 17:00 Temperature Pulse Rate 72 71 Respiratory Rate 21 Blood Pressure 140/70 Pulse Oximetry 98 97 Oxygen Delivery Method 06/11/22 17:30 06/11/22 17:42 06/11/22 17:42 Temperature Pulse Rate 67 71 Respiratory Rate 20 28 H Blood Pressure 142/69 H Pulse Oximetry 97 98 Oxygen Delivery Method 06/11/22 18:00 06/11/22 18:17 06/11/22 18:17 Temperature Pulse Rate 65 66 Respiratory Rate 24 24 Blood Pressure 141/65 H Pulse Oximetry 98 98 Oxygen Delivery Method 06/11/22 18:30 06/11/22 18:30 Temperature Pulse Rate 64 Respiratory Rate 28 H Blood Pressure 132/65 Pulse Oximetry 98 Oxygen Delivery Method MDM - Dizziness Lab Data 06/11/22 13:23 06/11/22 13:23 Labs: Lab Results 06/11/22 06/11/22 06/11/22 Range/Units 13:23 13:23 13:23 WBC 7.5 (4.5-11.0) X10^3/uL RBC 4.73 (4.0-5.2) X10^6/uL Hgb 13.5 (12.0-16.0) g/dL Hct 41.8 (36-46) % MCV 88.4 (80-100) fL MCH 28.6 (26-34) PG MCHC 32.4 (30-36) % RDW 13.8 (11.6-14.8) % Plt Count 161 (150-400) X10^3/uL Neut % (Auto) 75.7 H (50-75) % Lymph % (Auto) 19.8 L (25-40) % [place] % (Auto) 3.4 (3-14) % Eos % (Auto) 0.6 L (2-4) % Baso % (Auto) 0.5 (0-2) % Neut # (Auto) 5700 (7360-3633) /uL Lymph # (Auto) 1500 (8520-9256) /uL Churchill # (Auto) 300 (0-900) /uL Eos # (Auto) 0 (0-450) /uL Baso # (Auto) 0 (0-100) /uL PT 12.6 (10.1-12.7) SECONDS INR 1.1 (0.9-1.3) APTT 28 (26-36) SECONDS Sodium 136 L (137-145) mmol/L Potassium 3.6 (3.4-5.1) mmol/L Chloride 104 (98-107) mmol/L Carbon Dioxide 24 (22-32) mmol/L BUN 15 (7-17) mg/dL Creatinine 0.59 (0.52-1.04) mg/dL Estimated GFR > 60 (>60) mL/min BUN/Creatinine Ratio 25.4 H (6-22) Glucose 123 H (80-110) mg/dL Calcium 9.6 (8.4-10.2) mg/dL Magnesium 1.8 (1.6-2.3) mg/dL Total Bilirubin 1.0 (0.2-1.3) mg/dL AST 34 (14-36) IU/L ALT 27 (<35) IU/L Alkaline Phosphatase 93 (38-126) U/L Total Creatine Kinase 37 (30-135) U/L CK-MB (CK-2) TNP CK-MB (CK-2) Rel Index TNP Troponin I < 0.012 (0.01-0.034) ng/mL Total Protein 6.4 (6.3-8.2) g/dL Albumin 4.0 (3.5-5.0) g/dL Globulin 2.4 (1.7-4.1) g/dL Albumin/Globulin Ratio 1.7 (1.0-2.8) Lipase 40 (23-300) U/L Urine RBC (0-5/HPF) Urine WBC (0-5/HPF) Urine Bacteria (None) Ur Culture Indicated? 06/11/22 Range/Units 16:43 WBC (4.5-11.0) X10^3/uL RBC (4.0-5.2) X10^6/uL Hgb (12.0-16.0) g/dL Hct (36-46) % MCV (80-100) fL MCH (26-34) PG MCHC (30-36) % RDW (11.6-14.8) % Plt Count (150-400) X10^3/uL Neut % (Auto) (50-75) % Lymph % (Auto) (25-40) % Churchill % (Auto) (3-14) % Eos % (Auto) (2-4) % Baso % (Auto) (0-2) % Neut # (Auto) (1789-0298) /uL Lymph # (Auto) (9879-0905) /uL Churchill # (Auto) (0-900) /uL Eos # (Auto) (0-450) /uL Baso # (Auto) (0-100) /uL PT (10.1-12.7) SECONDS INR (0.9-1.3) APTT (26-36) SECONDS Sodium (137-145) mmol/L Potassium (3.4-5.1) mmol/L Chloride (98-107) mmol/L Carbon Dioxide (22-32) mmol/L BUN (7-17) mg/dL Creatinine (0.52-1.04) mg/dL Estimated GFR (>60) mL/min BUN/Creatinine Ratio (6-22) Glucose (80-110) mg/dL Calcium (8.4-10.2) mg/dL Magnesium (1.6-2.3) mg/dL Total Bilirubin (0.2-1.3) mg/dL AST (14-36) IU/L ALT (<35) IU/L Alkaline Phosphatase (38-126) U/L Total Creatine Kinase (30-135) U/L CK-MB (CK-2) CK-MB (CK-2) Rel Index Troponin I (0.01-0.034) ng/mL Total Protein (6.3-8.2) g/dL Albumin (3.5-5.0) g/dL Globulin (1.7-4.1) g/dL Albumin/Globulin Ratio (1.0-2.8) Lipase (23-300) U/L Urine RBC None seen (0-5/HPF) Urine WBC None seen (0-5/HPF) Urine Bacteria None seen (None) Ur Culture Indicated? Cult not indicated Urine Dip Bedside Urine Glucose Negative Bedside Urine Bilirubin - Negative Bedside Urine Ketone ++ 40 Urine Specific [place] 1.015 Bedside Urine Occult Blood - Negative Bedside Urine pH 6.0 Bedside Urine Protein - Negative Bedside Urine Urobilinogen - Negative Bedside Urine Nitrite - Negative Bedside Urine Leukocytes + 70 Esterase Imaging Data CTA - brain/neck: Radiologist's Impression: [facility] [place] [id number] CT Scan Report Signed Patient: Evelia Buchanan MR#: [id number] : 1945 Acct:[id number] Age/Sex: 77 / F Date of Service: 06/11/22 Loc: ED Accession Number: [id number] ?? Procedure: CT angio head and neck Ordering Provider: Nitza Restrepo D.O. PROCEDURE:? CT ANGIO HEAD AND NECK ? INDICATIONS:? dizzy ? TECHNIQUE:? Pre-contrast 4.5 mm thick sections acquired from the foramen magnum to the vertex.? After the administration of intravenous contrast, 1 mm thick sections acquired from the aortic arch through the [place] of [place].? Post-contrast 4.5 mm thick sections then re- acquired from the foramen magnum to the vertex.? 3-dimensional lrybjcd-vygpqqygv-vmbcysedfx (MIP) and/or volume rendering reformats were acquired of the central intracranial vasculature and neck separately. For radiation dose reduction, the following was used:? automated exposure control, adjustment of mA and/or kV according to patient size.? ? COMPARISON:? None. ? FINDINGS:? Image quality:? Mild streak artifact can be seen through the skull base. ? BRAIN:? CSF spaces:? Ventricles are normal in size and shape.? Basal cisterns are patent.? No extra-axial fluid collections.? ? Brain:? No midline shift.? No intracranial bleeds or masses.? Baker-white matter interface appears intact.? ? Skull and face:? Calvarium and facial bones appear intact, without suspicious lesions.? Orbits appear normal.? ? Sinuses:? Fdby-eq-hurdzwty mucosal thickening is seen within the inferior right maxillary sinus.? Sinuses and mastoids are otherwise clear.? ? HEAD CT ANGIOGRAPHY:? Anterior circulation:? Intracranial internal carotid arteries demonstrate generalized atherosclerotic calcification and irregularity, with up to 50% narrowing seen on each side.? There is a diminutive right A1 segment, with a corresponding robust left A1 segment.? This is considered to be a normal developmental variant of the [place] of [place], of typically no clinical consequence.? The flow within the paired anterior cerebral arteries is otherwise normal and symmetric.? The flow within the middle cerebral arteries is normal and symmetric.? The anterior communicating artery is seen.? No aneurysms are seen.? ? Posterior circulation:? The distal right vertebral artery partially terminates in the right posterior inferior cerebellar artery.? The left V4 segment demonstrates focal calcification with approximately 50% narrowing, as on series 8, image 138. There is a normal appearing basilar artery.? Flow within the posterior cerebral arteries is normal and symmetric.? No aneurysms are seen.? ? NECK CT ANGIOGRAPHY:? Carotid system:? The great vessels demonstrate a conventional anatomy as they arise from the aortic arch.? The origins of the common carotid arteries appear patent.? The common carotid arteries demonstrate normal caliber and courses.? The bifurcation regions are both widely patent.? The internal carotid arteries demonstrate normal calibers and courses.? ? Posterior circulation:? The origins of the vertebral arteries both appear widely patent.? The more superior extracranial portions of both vertebral arteries also de monstrate normal courses and calibers.? The left vertebral artery is dominant to the right. ? Soft tissues:? Visualized neck soft tissues demonstrate no suspicious abnormalities.? ? Bones:? No suspicious bony lesions.? Visualized cervical spine appears normally aligned.? There is straightening of the normal cervical lordosis.? At least moderate cervical spine degenerative change can be seen. ? ? IMPRESSION:? ? No imaging explanation is found for this patient's presenting symptoms.? ? No acute intracranial process is seen.? ? No january hemodynamically significant stenosis can be seen within the intracranial circulation. ? Within the arteries of the neck, no hemodynamically significant stenosis can be seen. ? No findings of neck artery dissection can be seen. ? ? ? Additional findings:? Rpsiqj-ck-Chpbbp developmental anomalies Focal right maxillary sinus disease At least moderate cervical spine degenerative change ? Any quantitative measurements of stenosis were performed using NASCET criteria.? ? ? Dictated by: Augusto Palafox M.D. on 06/11/2022 at 13:40 ? ? Chest x-ray: Radiologist's Impression: XRay Report Signed Patient: Evelia Buchanan MR#: [id number] : 1945 Acct:[id number] Age/Sex: 77 / F Date of Service: 06/11/22 Loc: ED Accession Number: [id number] ?? Procedure: XR chest 1V Ordering Provider: Nitza Restrepo D.O. PROCEDURE:? XR CHEST 1V ? INDICATIONS:? chest pain ? TECHNIQUE:? One view of the chest was acquired.? ? COMPARISON:? [facility], , XR CHEST 2V, 05/30/2020, 16:19. ? FINDINGS:? ? Surgical changes and devices:? Cholecystectomy clips are seen.? ? Lungs and pleura:? On this semiupright portable chest examination, no large pneumothorax or large pleural effusions are seen.? No focal infiltrates are seen.? ? Mediastinum:? Mediastinal contours appear normal.? Heart size is normal.? ? Bones and chest wall:? Age-appropriate bony degenerative changes are seen.? No suspicious bony lesions.? Overlying soft tissues appear unremarkable.? IMPRESSION:? ? Portable chest within normal limits for age. ? Postoperative and degenerative changes are seen. ? Dictated by: Augusto Palafox M.D. on 06/11/2022 at 13:00 ? ? ECG Data Interpretation: Sinus rhythm rate 63 [place] interval 180 QRS [address] changes no T-wave inversions PVC noted no priors to compare MDM Narrative Medical decision making narrative: Patient is a 77-year-old female who presents with gradual onset of dizziness. She has had worsening dizziness today she is unable to walk. She is given Ativan here which does seem to help. CT angio does not show any large vessel occlusion. Blood work is overall reassuring no evidence of infection. She is never had any previous episode of vertigo. She attempted to get up to a bedside commode with staff and had significant difficulty. An hour later I attempted myself to ambulate her she has a very unsteady gait she is unable to walk. She lives alone. At this time she is an extremely unsafe discharge. She has a friend or family member who stayed with her previously however she reports that she is much more steady at this time and would unlikely be able to pick her up as well if she fell. She is no focal deficits. Differential diagnosis includes posterior CVA, benign paroxysmal positional vertigo. Unable to get MRI now. Dr. Coffey updated on patient's symptoms and social conditions such as living alone she agrees with observation with MRI in the morning. Discharge Plan Departure Patient Disposition: Admitted as Observation Clinical Impression: Vertigo Admit Date/Time: 06/11/22 18:35 Admit Provider: Rama Coffey
[2022-06-11] MEDS: LORazepam 2 MG/ML INJ 0.5 MG IV (14:22)
[2022-06-11] MEDS: SODIUM CHLORIDE 0.9% 1,000 ML 1000 ML IV (14:26)
[2022-06-11 17:50] LABS: Bacteria Urine None Seen; Culture Indicated Urine Cult Not Indicated; RBC Urine None Seen (0-5/HPF); WBC Urine None Seen (0-5/HPF)
[2022-06-11] MEDS: MECLIZINE HCL 12.5 MG TABLET 25 MG PO ×2 (18:35→22:13)
[2022-06-11 18:58] LABS: COVID19 -Nasal RAPID Negative (Negative)
[2022-06-11] MEDS: ONDANSETRON 4 MG ODT PO (22:13)
[2022-06-11] MEDS: SODIUM CHLORIDE 0.9% 1,000 ML 100 ML IV (22:13)
--- NOTE | 2022-06-12 00:13 | PM.HP.1 ---
History of Present Illness History of Present Illness Date Patient Seen: 06/11/22 Time Patient Seen: 18:20 Chief complaint: Dizzy, Nausea/vomiting, unable to walk Narrative: Evelia Buchanan is a 77-year-old female with a history hypertension depression, anxiety, and PTSD who reported to the ED complaining severe acute onset dizziness for the past 4 days, with vomiting multiple times (6) a day starting 48 hours ago a mild headache and lower abdominal cramping. With any movement patient feels as if she is the 1 moving, & that the room is not. she did report having some tinnitus in the right ear, mild sinus pressure bilaterally below both eyes earlier in the week, and chronically hears a whooshing sound in the right ear., denies any recent cold cough congestion traveled to altitude, scuba diving, plane travel, extensive time in the water, or allergies. On admit patient denies chest pain, shortness in breath, headache, changes in vision, difficulty swallowing, speech impairment, weakness, numbness, tingling, difficulty with ambulation, recent falls, head injury, LOC, fever, body aches, chills, cough, recent exposure to illness, urinary incontinence/retention, dysuria, frequency, urgency, hematuria, bowel changes, constipation, incontinence, melena, rashes, recent changes to medication, illness, injury, or trauma. At the time of vitals 97.3, 150/53, 65, 18, O2 saturation 100% on room air. Patient's CBC CMP are unremarkable, troponin, COVID, and urinalysis are negative. NIH score: 0. Head neck CTA are unremarkable, chest x-ray negative, EKG sinus rhythm rate of [address] or T-wave changes. Patient continues to feel mildly nauseated but has had no further vomiting after multiple doses in the ED of Ativan, Zofran, meclizine. Patient admitted for vertigo of unknown etiology. 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 (07/13/16) Night terrors Normal Papanicolaou smear Obesity (11/05/13) Overweight (BMI 25.0-29.9) Precancerous skin lesion (~2007) Rubella Surgical History Anesthesia H/O colonoscopy with polypectomy History of arthroplasty of right knee (02/23/14) History of cataract surgery (~11/2020) History of cholecystectomy History of inguinal hernia repair History of knee replacement (2009) History of local excision of skin lesion (~2007) History of ventral hernia repair Status post cholecystectomy (1995) Status post hernia repair (2012) Family & Social History Family History Mother Heart disease High cholesterol Congestive heart failure Father No problems noted. Social History: household members none Prior Living Arrangements Apartment/Condo Safety & Behavioral: Feels Safe in Current Yes Environment Been Physically Hurt or No Threatened By a Person Tobacco & Substance use: Smoking Status Former smoker alcohol intake current alcohol intake frequency a few times a month Substance Use Type does not use Meds Home Medications and Allergies Home Medications Medication Instructions Recorded Confirmed Type alprazolam 0.25 mg tablet 0.125 mg PO BEDTIME PRN anxiety 03/28/22 06/11/22 Rx causing insomnia #60 tabs irbesartan 150 mg tablet 150 mg PO DAILY #90 tabs 06/07/22 06/11/22 Rx trazodone 50 mg tablet 25 mg PO BEDTIME PRN insomnia #30 06/07/22 06/11/22 Rx tabs acyclovir 400 mg tablet 400 mg PO TID PRN Rash 06/11/22 06/11/22 History furosemide 20 mg tablet 20 mg PO DAILY 06/11/22 06/11/22 History Allergies Allergy/AdvReac Type Severity Reaction Status Date / Time No Known Drug Allergies Allergy Verified 06/11/22 13:03 Review of Systems Review of Systems Narrative: All 12 point systems reviewed with the patient and are negative except otherwise documented. Exam Vital Signs (past 8 hours): - 06/11/22 16:30 06/11/22 16:30 06/11/22 17:00 Temperature Pulse Rate 72 71 Respiratory Rate 21 Blood Pressure 140/70 Pulse Oximetry 98 97 Oxygen Flow Rate 06/11/22 17:30 06/11/22 17:42 06/11/22 17:42 Temperature Pulse Rate 67 71 Respiratory Rate 20 28 H Blood Pressure 142/69 H Pulse Oximetry 97 98 Oxygen Flow Rate 06/11/22 18:00 06/11/22 18:17 06/11/22 18:17 Temperature Pulse Rate 65 66 Respiratory Rate 24 24 Blood Pressure 141/65 H Pulse Oximetry 98 98 Oxygen Flow Rate 06/11/22 18:30 06/11/22 18:30 06/11/22 19:00 Temperature Pulse Rate 64 Respiratory Rate 28 H Blood Pressure 132/65 143/65 H Pulse Oximetry 98 Oxygen Flow Rate 06/11/22 19:00 06/11/22 19:30 06/11/22 19:30 Temperature Pulse Rate 67 71 Respiratory Rate 24 25 H Blood Pressure 152/70 H Pulse Oximetry 98 98 Oxygen Flow Rate 06/11/22 20:00 06/11/22 20:00 06/11/22 20:30 Temperature 97.3 F L Pulse Rate 69 65 Respiratory Rate 22 18 Blood Pressure 147/65 H 150/53 H Pulse Oximetry 97 100 Oxygen Flow Rate 0 Oxygen Delivery Method Room Air Oxygen Flow Rate 0 Narrative Exam Narrative: General: Patient is a well-developed, well-nourished in no distress at this time. HEENT: Normocephalic, atraumatic, extraocular muscles intact, oral pharynx is clear and mucous membranes are moist. Neck is supple and symmetric, trachea is midline, no adenopathy, no thyroid enlargement, nontender, no masses palpated. Negative for JVD. No nystagmus diplopia, ataxia, dysarthria deafness, visual loss. Chest: Normal AP diameter and contour without kyphoscoliosis, no nasal flaring, retractions, or tachypneic labored Lungs: Auscultation of all lung springer are clear without adventitious sounds, wheezes, rhonchi, or rales. Cardio: S1 & S2 with regular rate and rhythm without murmur, rubs, or gallops, no carotid bruit, no cardiac pulsations present. Abdomen: Soft nontender, negative for organomegaly, or masses. Bowel sounds are present in all 4 quadrants without guarding or rebound, no CVA tenderness. Musculoskeletal: Muscle strength and tone are equal within normal limits, no deformity, crepitus, effusions, cyanosis, clubbing or edema present. Full range of motion intact radial and pedal pulses are normal. Skin: Warm dry and intact without rashes, ulcerations or petechiae. Neuro: Alert and orientated x3, strength is +5/5 in all extremities, sensation to touch intact, no gross deficits noted of cranial nerves. No observed ataxia, coordination issues, peripheral neuropathy, or cerebellar disorder noted. Psych: Patient has a well-kept appearance, appropriate affect, mental status attitude thought context and judgment are appropriate for age. Objective Labs 06/11/22 13:23 06/11/22 13:23 Labs: Laboratory Results - last 24 hr 06/11/22 06/11/22 06/11/22 13:23 13:23 13:23 WBC 7.5 RBC 4.73 Hgb 13.5 Hct 41.8 MCV 88.4 MCH 28.6 MCHC 32.4 RDW 13.8 Plt Count 161 Neut % (Auto) 75.7 H Lymph % (Auto) 19.8 L [place] % (Auto) 3.4 Eos % (Auto) 0.6 L Baso % (Auto) 0.5 Neut # (Auto) 5700 Lymph # (Auto) 1500 [place] # (Auto) 300 Eos # (Auto) 0 Baso # (Auto) 0 PT 12.6 INR 1.1 APTT 28 Sodium 136 L Potassium 3.6 Chloride 104 Carbon Dioxide 24 BUN 15 Creatinine 0.59 Estimated GFR > 60 BUN/Creatinine Ratio 25.4 H Glucose 123 H Calcium 9.6 Magnesium 1.8 Total Bilirubin 1.0 AST 34 ALT 27 Alkaline Phosphatase 93 Total Creatine Kinase 37 CK-MB (CK-2) TNP CK-MB (CK-2) Rel Index TNP Troponin I < 0.012 Total Protein 6.4 Albumin 4.0 Globulin 2.4 Albumin/Globulin Ratio 1.7 Lipase 40 Urine RBC Urine WBC Urine Bacteria Ur Culture Indicated? SARS-CoV-2 (PCR) 06/11/22 06/11/22 16:43 18:40 WBC RBC Hgb Hct MCV MCH MCHC RDW Plt Count Neut % (Auto) Lymph % (Auto) [place] % (Auto) Eos % (Auto) Baso % (Auto) Neut # (Auto) Lymph # (Auto) [place] # (Auto) Eos # (Auto) Baso # (Auto) PT INR APTT Sodium Potassium Chloride Carbon Dioxide BUN Creatinine Estimated GFR BUN/Creatinine Ratio Glucose Calcium Magnesium Total Bilirubin AST ALT Alkaline Phosphatase Total Creatine Kinase CK-MB (CK-2) CK-MB (CK-2) Rel Index Troponin I Total Protein Albumin Globulin Albumin/Globulin Ratio Lipase Urine RBC None seen Urine WBC None seen Urine Bacteria None seen Ur Culture Indicated? Cult not indicated SARS-CoV-2 (PCR) Negative Assessment & Plan Assessment & Plan narrative: Evelia Buchanan is a 77-year-old female with a history hypertension depression, anxiety, and PTSD who admitted for acute vertigo with intractable nausea & vomiting of unknown etiology. Patient brought in for gentle rehydration, evaluation of blood pressure control, medication evaluation, PT/OT evaluation, and MR in the morning. 1. Vertigo, acute, with nausea and vomiting, present on admission-unknown etiology -suspect possible BPPV, vs vestibular neuropathy vs. Migraine vertigo vs. Drug-induced vs Meniere's: tinnitus and changes in hearing in the right ear, acute onset N/V -NIH score: 0. Head neck CTA are unremarkable, chest x-ray negative -NS at cc/for rehydration -hold Lasix, orthostatics q.4 hours while awake -PT/OT [id number] DX of BPPV, Roberth maneuver -continue antiemetics, Zofran, meclizine, offer scopolamine patch -patient on clears may advance as tolerated to heart healthy 2 g sodium diet, if vomiting we presents return to clear liquids or NPO status. -MR in the morning -recommended to patient if her workup is negative to follow-up with ENT consult, and eye exam. 2. Hypertension, essential, acute on chronic, present on admission -BP on admit 150/53 -continue irbesartan or pharmacy replacement -holding patient's Lasix inapproriate for combo tx in HTN w/out CHF or edema concerned that it could be contributing to dehydration/vertigo and possible orthostatic hypotension. Patient verbalizes significant concern about tapering offa diuretic?, notes that HCTZ was not effective in blood pressure control. -the patient may not need either an increase in irbesartan or an additional diuretic medication. -If she does need greater control: Would recommend increasing your irbesartan to 300 mg q.day or initiating chlorthalidone 12.5 mg daily with follow-up with PCP after 2 weeks, with blood pressure log. 3. PTSD, depression with anxiety chronic, present on admission -continue alprazolam as needed 4. Insomnia, chronic, present on admission -continue trazodone 5. Overweight, moderate, acute on chronic, present on admission -as evidence by BMI 29.1 -dietary consult ordered regarding nutritional education and information for dietary, lifestyle, exercise, and weight changes. -the patient is at much higher risk for medical and surgical complications due to obesity as it relates to chronic illnesses:, and acute illness. The patient's obesity increases the difficulty and complexity of medical and/or surgical interventions, management and increases the chances of poor outcome such as morbidity and mortality as well as impaired wound healing. Code status:Full- per patient discussion at time of admit Surrogate decision maker: Damaris PAIZ PCR: Negative DVT/VTE prophylaxis: Lovenox and SCD Disposition: Patient admitted for overnight observation, evaluation of vertigo resolution of vomiting, expected length of stay less than 2 midnights. I have utilized all available immediate resources to obtain, update, or review the patient's current medications. I confirmed that the patient's advanced care plan is present, Code status is documented and/or surrogate decision maker is listed in the patient's medical record. I have personally reviewed patient's chart notes from PCP, specialists, diagnostic imaging, and laboratory results. Time Spent With Patient Critical Care time: I spent a total of [] minutes of critical care time on this patient's care today; this time is exclusive of procedural time. Quality VTE Deep Vein Thrombosis/Pulmonary Embolism Present on Admission: No
[2022-06-12 00:21] VITALS: BP 121/61; PULSE 65; RESP 18; TEMP 36.8; O2SAT 99
[2022-06-12] MEDS: TRAZODONE 50 MG TABLET 25 MG PO (00:23)
[2022-06-12] MEDS: ALPRAZolam 0.25 MG TABLET 0.125 MG PO (00:23)
[2022-06-12] MEDS: ONDANSETRON 4 MG ODT PO (06:11)
[2022-06-12] MEDS: SCOPOLAMINE 1 PATCH TOP (06:11)
[2022-06-12] MEDS: PANTOPRAZOLE DR 20 MG TABLET PO (06:11)
[2022-06-12 06:25] LABS: Add Manual Diff / Slide Review NO; Basophils Absolute Auto 0 /uL (0-100); Basophils Percent Auto 0.8 % (0-2); Eosinophils Absolute Auto 100 /uL (0-450); Hematocrit 33.9 % (36-46); Hemoglobin 11.3 g/dL (12.0-16.0); Lymphocytes Absolute Auto 2500 /uL (1100-4500); Lymphocytes Percent Auto 43.7 % (25-40); Mean Corpuscular HGB Conc 33.5 % (30-36); Mean Corpuscular Hemoglobin 29.2 PG (26-34); Mean Corpuscular Volume 87.2 fL (80-100); Monocytes Absolute Auto 400 /uL (0-900); Monocytes Percent Auto 7.8 % (3-14); Neutrophils Absolute Auto 2600 /uL (1500-7000); Neutrophils Percent Auto 45.7 % (50-75); Platelet Count 138 X10^3/uL (150-400); Red Blood Cell Count 3.88 X10^6/uL (4.0-5.2); Red Cell Distribution Width 13.8 % (11.6-14.8); White Blood Cell Count 5.7 X10^3/uL (4.5-11.0)
[2022-06-12 06:32] LABS: BUN Creatinine Ratio 16.9 (6-22); Blood Urea Nitrogen 11 mg/dL (7-17); Calcium 8.6 mg/dL (8.4-10.2); Carbon Dioxide 24 mmol/L (22-32); Chloride 108 mmol/L (98-107); Estimated Glomerular Filt Rate > 60 mL/min (>60); Glucose 65 mg/dL (80-110); HEMOLYSIS < 15 (0-50); Potassium 3.4 mmol/L (3.4-5.1); Sodium 137 mmol/L (137-145)
[2022-06-12 06:59] LABS: Hemoglobin A1C% w Est Avg Glu 5.7 % (4.0-6.0)
[2022-06-12] MEDS: LORazepam 2 MG/ML INJ 0.5 MG IV (07:58)
[2022-06-12 08:00] VITALS: BP 135/49; BP 136/50; BP 141/69; PULSE 63; PULSE 69; PULSE 71; RESP 17; TEMP 37; O2SAT 95
--- NOTE | 2022-06-12 08:13 | DI.MRI.S_ITS ---
PROCEDURE: MR HEAD/BRAIN WO CON INDICATIONS: vertigo TECHNIQUE: Non-contrast axial T1 spin echo, axial T2 fast spin echo, sagittal and axial FLAIR, coronal T2 fast spin echo, axial gradient echo, axial diffusion and ADC through the brain. COMPARISON: None. FINDINGS: Image quality: Excellent. CSF spaces: Ventricles appear symmetric in size and shape. Basal cisterns are patent. No extra-axial fluid collections. Brain: No intracranial bleeds or mass effects. There is cerebral volume loss for age. Scattered T2/FLAIR hyperintense signal foci are present within the deep and periventricular white matter. Brainstem appears normal. Diffusion-weighted images show no acute ischemic insults. No chronic ischemic insults. Normal intravascular flow voids are present. Skull and face: Calvarial bone marrow is normal in signal. Orbits are normal. Sinuses: Sinuses and mastoids are clear. IMPRESSION: 1. No acute intracranial findings. Specifically, no increased restricted diffusion to suggest acute or subacute infarct. 2. Findings likely associated with chronic microvascular ischemic changes. Dictated by: Nayeli Delgado M.D. on 06/12/2022 at 8:43 Approved by: Nayeli Delgado M.D. on 06/12/2022 at 8:46
[2022-06-12] MEDS: MECLIZINE HCL 12.5 MG TABLET 25 MG PO (09:46)
[2022-06-12 09:47] VITALS: BP 135/49; PULSE 69
[2022-06-12] MEDS: LOSARTAN 50 MG TABLET PO (09:47)
[2022-06-12] MEDS: POTASSIUM CHLORIDE 20 MEQ TAB 40 MEQ PO (09:48)
[2022-06-12] MEDS: ENOXAPARIN 40 MG/0.4 ML SYRINGE SUBCUT (09:48)
[2022-06-12] MEDS: MAGNESIUM SULFATE 2 GM/50 ML PIGGYBACK IV (09:49)
[2022-06-12 11:00] VITALS: BP 129/51; PULSE 60; RESP 17; TEMP 36.2; O2SAT 97
--- NOTE | 2022-06-12 11:18 | CM.DANOTE ---
Initial Discharge Assessment Note: Case reviewed, met with patient. Introduced self and role. Payer: [employer] and [employer] PCP: Irasema Kemp 77 year old female admitted with vertigo, N/V, HTN. The vertigo is still persisting today. Therapy eval is pending. Patient is to Damaris but they are not currently living together. She has a friend who is helpful but is basically living alone in her own home in [place]. She is independent and drives. Plan: Per Hospitalist DC, after therapy eval. Patient to return home and friend to provide transportation. [facility] Discharge Planning/Care Management CM Discharge Assessment Start: 06/12/22 11:16 Freq: Status: Active Protocol: Document 06/12/22 11:16 (Rec: 06/12/22 11:18 [id number]) Discharge Planning Assessment Assigned Vmware Consultant Sandra Neves RN/DCP Advance Directives? Yes Advance Directives on File No History Provided By Patient Prior Living Arrangements Apartment/Condo Household Members none Comment Is but spouse doesn't live with her she states. Type of transporation used prior to Drives own vehicle admit Independent with ADL's Yes Is patient alert and oriented? Yes Caregiver for Another No Barriers to Discharge No Referrals Initiated None needed Additional Comment Patient drives Whiteboard Updated in Patient Room with Yes name and ext. # of Vmware Consultant Review Status In Process Next Review Type Continued Stay Review
--- NOTE | 2022-06-12 12:50 | PT.IIE ---
Surgical History (Last Reviewed 06/12/22 @ 00:22 by PABLO MendozaP-) Anesthesia H/O colonoscopy with polypectomy History of arthroplasty of right knee (02/23/14) History of cataract surgery (~11/2020) History of cholecystectomy History of inguinal hernia repair History of knee replacement (2009) History of local excision of skin lesion (~2007) History of ventral hernia repair Status post cholecystectomy (1995) Status post hernia repair (2012) Medical History (Last Updated 06/12/22 @ 00:22 by PABLO MendozaP-) Actinic keratosis of left cheek (02/2012) Asthma Asymptomatic PVCs Cataracts, bilateral Chicken pox Chronic back pain (~1979) Controlled type 2 diabetes mellitus without complication (2007) Depression with anxiety Diabetes type 2, controlled Fatigue Flu-like symptoms Herpes, genital (~1964) 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 Hypertension (11/05/13) Hypertension (1973) Leg pain, bilateral (2010) Measles 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 (07/13/16) Night terrors Normal Papanicolaou smear Obesity (11/05/13) Overweight (BMI 25.0-29.9) Precancerous skin lesion (~2007) Rubella Physical Therapy Inpatient Evaluation/Re-Eval M1 PT/OT-IP Prior Functional Status Start: 06/12/22 12:30 Freq: NEEDED Status: Active Protocol: Document 06/12/22 11:45 DCW (Rec: 06/12/22 12:49 DCW [id number]) Medical Review Prior Functional Status Medical History Reviewed Yes Communication WNL Mobility and Gait WNL, Occasionally uses trekking poles with uneven ground Social History Household Members none Living Arrangements Apartment/Condo M2 PT-IP Current Condition Start: 06/12/22 12:30 Freq: NEEDED Status: Active Protocol: Document 06/12/22 11:45 DCW (Rec: 06/12/22 12:49 DCW [id number]) Physical Therapy Current Condition Current Condition Evaluation Date 06/12/22 Treatment Diagnosis Dizziness Onset Date 06/08/22 M3 PT-IP Subjective Start: 06/12/22 12:30 Freq: NEEDED Status: Active Protocol: Document 06/12/22 11:45 DCW (Rec: 06/12/22 12:49 DCW [id number]) Subjective Physical Therapy Visit Type Type Initial Evaluation Visit Start Time 11:45 Visit Stop Time 12:20 Total Visit Minutes 35 Notes Pt is a 77 year old female complaining of a four day history of near-constant dizziness. Pt reports she has never felt spinning, but it's all internal movement, like a pressure to one side. Began 06/08/22, fairly mild, by evening of 06/09/22 was significantly worse, pt experiencing nausea and vomiting, finally contacted local friend on 06/11/22 to assist her getting to the ED. Admits she noticed ~1 month ago a brief period of increased tinnitus, however it did not last long, and she didn't think anything of it at the time. No change in hearing, no diplopia or blurry vision. Has not had any falls , although admits she felt like she could have fallen the past few days, just never did . Since arrival at [facility], pt has undergone both a head CT and MRI, both of which were unremarkable for any cause of vertigo. Physical Therapy Visit Comments Patient Comments Pt reports she is feeling better overall, but still feels very unstable and just off. M4 PT-IP Mobility and Gait Start: 06/12/22 12:30 Freq: NEEDED Status: Active Protocol: Document 06/12/22 11:45 DCW (Rec: 06/12/22 12:49 [facility] [id number]) PT-Bed Mobility Assessment Rolling Type of Rolling Roll to Left Level of Assist Contact Guard Assistance Supine to Sit Supine to Sit Standby Assistance Scooting Scooting to Edge of Bed Independent Scooting Up and Down in Bed Independent PT-Transfer Assessment Sit to and From Stand Sit to and from Stand Standby Assistance Equipment Transfer Assistive Device Bed Rail Comments Mobility Comments Pt able to get herself sitting EOB for vestibular assessment , initially felt uncomfortable with the movement, but felt better as she sat there. Later willing to stand up independently, performed weight-shifting [id number], and ambulated 5 steps forward, turned, and returned to bed SBA without an assistive device. Admitted she felt better than she expected. M5 PT-IP Objective Assessments Start: 06/12/22 12:30 Freq: NEEDED Status: Active Protocol: Document 06/12/22 11:45 DCW (Rec: 06/12/22 12:49 [facility] [id number]) Orientation Orientation/Cognition Level of Alertness Alert Safety Awareness Understands Safety Issues Other Assessments Other Other Assessments Smooth Pursuit: Difficulty with smooth pursuit, saccadic eye movements Saccades: WNL Mittal test: WNL Rienne test: Air conduction > bone conduction [place] air conduction: R= L Gaze nystagmus: with fixation, 1? left-beating with left gaze Unfortunately, unable to test without fixation due to technical difficulties with Frenzel lenses. Thrust/Heave tests: Strongly positive Left M7 PT-IP Assessment and Plan Start: 06/12/22 12:30 Freq: NEEDED Status: Active Protocol: Document 06/12/22 11:45 DCW (Rec: 06/12/22 12:49 [facility] [id number]) PT Summary Assessment and Plan Potential Rehabilitation Potential Good Status of Condition at Evaluation Unstable Summary Assessment Summary Pt presents with signs and symptoms fairly suggestive of left-sided vestibular neuritis . With limitations of vestibular testing in in- patient, as well as dysfunctional Frenzel lenses, unable to completely rule-out central causes of vertigo, however pt has unremarkable CT and MRI over the past 24 hours, so can be relatively confident there is no acute central cause of symptoms. Reviewed with patient Vestibular Neuritis, as well as provided an information sheet. Recommend pt follow-up with outpatient Vestibular Rehabilitation, as well as likely a referral to an ENT for a VNG to assist in increasing confidence in Dx of Vestibular Neuritis. Pt will likely benefit from assistance at home due to decreased stability and confidence with ambulation. Frequency of Treatment Frequency Of Treatment Discharge Recommendations To Nursing Amount of Assist Needed Standby Assistance Discharge Recommendations PT Discharge Recommendations Home,Home with Assistance Other Discharge Recommendations Use Trekking poles or other AD while feeling decreased stability Transportation Needs at Discharge Private Vehicle
--- NOTE | 2022-06-12 14:11 | OT.IPNOTE ---
Discussed case with MD. Pt is doing better and is no longer in need of OT services. Will discharge order.
--- NOTE | 2022-06-12 15:32 | PC.NURSE ---
Pt dressed for d/c with pt's friend's help and IV d/c'd. Pt A&Ox4, no c/o pain or N/V. Reviewed new medications which pt will p/u at pharmacy. Stressed the importance of not taking Ativan with her already prescribed Xanax or with alcohol. Pt stated she understood and had no other questions. Pt left unit @ 1511 with friend to [facility] via wheelchair with all her belongings.
--- NOTE | 2022-06-12 18:54 | P.DS_ITS ---
History of Present Illness History of Present Illness Date Patient Seen: 06/12/22 Time Patient Seen: 18:20 Chief complaint: Dizzy, Nausea/vomiting, unable to walk Narrative: Evelia Buchanan is a 77-year-old female with a history hypertension depression, anxiety, and PTSD who reported to the ED complaining severe acute onset dizziness for the past 4 days, with vomiting multiple times (6) a day starting 48 hours ago a mild headache and lower abdominal cramping. With any movement patient feels as if she is the 1 moving, & that the room is not. she did report having some tinnitus in the right ear, mild sinus pressure bilaterally below both eyes earlier in the week, and chronically hears a whooshing sound in the right ear., denies any recent cold cough congestion traveled to altitude, scuba diving, plane travel, extensive time in the water, or allergies. On admit patient denies chest pain, shortness in breath, headache, changes in vision, difficulty swallowing, speech impairment, weakness, numbness, tingling, difficulty with ambulation, recent falls, head injury, LOC, fever, body aches, chills, cough, recent exposure to illness, urinary incontinence/retention, dysuria, frequency, urgency, hematuria, bowel changes, constipation, incontine nce, melena, rashes, recent changes to medication, illness, injury, or trauma. At the time of vitals 97.3, 150/53, 65, 18, O2 saturation 100% on room air. Patient's CBC CMP are unremarkable, troponin, COVID, and urinalysis are negative. NIH score: 0. Head neck CTA are unremarkable, chest x-ray negative, EKG sinus rhythm rate of [address] or T-wave changes. Patient continues to feel mildly nauseated but has had no further vomiting after multiple doses in the ED of Ativan, Zofran, meclizine. Patient admitted for vertigo of unknown etiology. Discharge Providers Provider Date of admission: 06/11/22 18:35 Discharge Date: 06/12/22 Primary care physician: Irasema Kemp DO Consults: 06/11/22 20:22 Consult to Occupational Therapy Evaluate & Treat Comment: Eval for Roberth's maneuvers Physician Instructions: Evaluate and treat Consult to Physical Therapy Evaluate & Treat Comment: Physician Instructions: Evaluate and Treat 06/12/22 00:38 Consult to Dietitian, Adult Routine Comment: Reason For Exam: BMI 29.1 Discharge provider: Aman Dong DO Summary Hospital Course Discharge Diagnosis: 1. Vertigo, acute, with nausea and vomiting, present on admission-unknown etiology 2. Hypertension, essential, acute on chronic, present on admission 3. PTSD, depression with anxiety chronic, present on admission 4. Insomnia, chronic, present on admission 5. Overweight, moderate, acute on chronic, present on admission Hospital Course: Evelia Buchanan is a 77-year-old female with a history hypertension depression, anxiety, and PTSD who admitted for acute vertigo with intractable nausea & vomiting of unknown etiology.? Patient brought in for gentle rehydration, evaluation of blood pressure control, medication evaluation, PT/OT evaluation, and MR in the morning. Given antiemetics and meclizine with improvement in symptoms. Seen by vestibular PT who diagnosed with vestibular neuritis and recommended supportive care and outpatient vestibular PT. Patient discharged with scripts for meclizine, zofran and ativan for nausea. Time Spent with Patient Time spent: Greater than 30 minutes Exam Vital Signs (past 8 hours): - 06/12/22 11:00 Temperature 97.2 F L Pulse Rate 60 Respiratory Rate 17 Blood Pressure 129/51 L Pulse Oximetry 97 Oxygen Flow Rate 0 Oxygen Delivery Method Room Air Oxygen Flow Rate 0 Narrative Exam Narrative: General: Patient is a well-developed, well-nourished in no distress at this time. HEENT: Normocephalic, atraumatic, extraocular muscles intact, oral pharynx is clear and mucous membranes are moist. Neck is supple and symmetric, trachea is midline, no adenopathy, no thyroid enlargement, nontender, no masses palpated. Negative for JVD. No nystagmus diplopia, ataxia, dysarthria deafness, visual loss. Chest: Normal AP diameter and contour without kyphoscoliosis, no nasal flaring, retractions, or tachypneic labored Lungs: Auscultation of all lung springer are clear without adventitious sounds, wheezes, rhonchi, or rales. Cardio: S1 & S2 with regular rate and rhythm without murmur, rubs, or gallops, no carotid bruit, no cardiac pulsations present. Abdomen: Soft nontender, negative for organomegaly, or masses. Bowel sounds are present in all 4 quadrants without guarding or rebound, no CVA tenderness. Musculoskeletal: Muscle strength and tone are equal within normal limits, no deformity, crepitus, effusions, cyanosis, clubbing or edema present. Full range of motion intact radial and pedal pulses are normal. Skin: Warm dry and intact without rashes, ulcerations or petechiae. Neuro: Alert and orientated x3, strength is +5/5 in all extremities, sensation to touch intact, no gross deficits noted of cranial nerves. No observed ataxia, coordination issues, peripheral neuropathy, or cerebellar disorder noted. Psych: Patient has a well-kept appearance, appropriate affect, mental status attitude thought context and judgment are appropriate for age. Objective Labs 06/12/22 06:06 06/12/22 06:06 Labs: Laboratory Results - last 24 hr 06/11/22 06/12/22 06/12/22 18:40 06:06 06:06 WBC 5.7 RBC 3.88 L Hgb 11.3 L Hct 33.9 L MCV 87.2 MCH 29.2 MCHC 33.5 RDW 13.8 Plt Count 138 L Neut % (Auto) 45.7 L D Lymph % (Auto) 43.7 H D [place] % (Auto) 7.8 Eos % (Auto) 2.0 Baso % (Auto) 0.8 Neut # (Auto) 2600 Lymph # (Auto) 2500 [place] # (Auto) 400 Eos # (Auto) 100 Baso # (Auto) 0 Sodium 137 Potassium 3.4 Chloride 108 H Carbon Dioxide 24 BUN 11 Creatinine 0.65 Estimated GFR > 60 BUN/Creatinine Ratio 16.9 Glucose 65 L Hemoglobin A1c Calcium 8.6 SARS-CoV-2 (PCR) Negative 06/12/22 06:06 WBC RBC Hgb Hct MCV MCH MCHC RDW Plt Count Neut % (Auto) Lymph % (Auto) [place] % (Auto) Eos % (Auto) Baso % (Auto) Neut # (Auto) Lymph # (Auto) [place] # (Auto) Eos # (Auto) Baso # (Auto) Sodium Potassium Chloride Carbon Dioxide BUN Creatinine Estimated GFR BUN/Creatinine Ratio Glucose Hemoglobin A1c 5.7 Calcium SARS-CoV-2 (PCR) [facility] Medical History (Updated 06/12/22 @ 00:22 by RICHARDSON Mendoza) Actinic keratosis of left cheek (02/2012) Asthma Asymptomatic PVCs Cataracts, bilateral Chicken pox Chronic back pain (~1979) Controlled type 2 diabetes mellitus without complication (2007) Depression with anxiety Diabetes type 2, controlled Fatigue Flu-like symptoms Herpes, genital (~1964) 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 Hypertension (11/05/13) Hypertension (1973) Leg pain, bilateral (2010) Measles 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 (07/13/16) Night terrors Normal Papanicolaou smear Obesity (11/05/13) Overweight (BMI 25.0-29.9) Precancerous skin lesion (~2007) [place] Surgical History Anesthesia H/O colonoscopy with polypectomy History of arthroplasty of right knee (02/23/14) History of cataract surgery (~11/2020) History of cholecystectomy History of inguinal hernia repair History of knee replacement (2009) History of local excision of skin lesion (~2007) History of ventral hernia repair Status post cholecystectomy (1995) Status post hernia repair (2012) Family History Mother Heart disease High cholesterol Congestive heart failure Father No problems noted. Social History household members: none Smoking Status: Former smoker alcohol intake: current Discharge Plan Discharge Plan Patient Disposition: Home Provider Discharge Comment: You were admitted for acute nausea and vomiting and found to have acute vestibular neuritis. Your brain MRI was normal. This is a self-limiting condition only treated with supportive care. I've sent meclizine and zofran to your pharmacy. Also some ativan PRN since it helped you with the nausea. Please don't take this with your xanax or alcohol. Discharge orders & Medications Prescriptions: New meclizine 25 mg tablet 25 mg PO TID PRN (Reason: dizziness) Qty: 30 0RF ondansetron 4 mg Tablet,Disintegrating 4 mg PO Q8HR PRN (Reason: Nausea And Vomiting) Qty: 30 0RF lorazepam [Ativan] 0.5 mg tablet 0.5 - 1 mg PO BID PRN (Reason: nausea and vomiting) Qty: 20 0RF Continued irbesartan 150 mg tablet 150 mg PO DAILY Qty: 90 1RF trazodone 50 mg tablet 25 mg PO BEDTIME PRN (Reason: insomnia) Qty: 30 0RF Rx Instructions: can increase to max 150mg nightly alprazolam 0.25 mg tablet 0.125 mg PO BEDTIME PRN (Reason: anxiety causing insomnia) Qty: 60 0RF Rx Instructions: continue with 1/2 tab as needed for anxiety causing insomnia if other sleep and relaxation strategies are not sufficient. continue to work to use this less and less over time. acyclovir 400 mg tablet 400 mg PO TID PRN (Reason: Rash) Rx Instructions: Start at first symptoms and take for 5 days per outbreak. Discontinued furosemide 20 mg tablet 20 mg PO DAILY Follow up/Referrals: Irasema Kemp DO [Primary Care Provider] - 2 Weeks Visit Report/Discharge Packet Stand Alone Forms: Patient Portal/API, Stroke Signs & Symptoms Discharge Data Primary Care Provider: Irasema Kemp Attending Provider: Rama Coffey VTE Deep Vein Thrombosis/Pulmonary Embolism Present on Admission: No
== END 2022-06-12 15:10 | disposition home or self-care (01) ==
LOC: ED 13:45 → AC 18:36
PROVIDERS: Nurse Practitioner Family; Admitting Provider Family Medicine; Emergency Provider Emergency Medicine; PCP Family Medicine; Referring Provider Emergency Medicine; Visit Provider Family Medicine
DX: R42 Dizziness and giddiness (principal); R11.2 Nausea with vomiting, unspecified; R10.30 Lower abdominal pain, unspecified; R51.9 Headache, unspecified; G47.00 Insomnia, unspecified; I10 Essential (primary) hypertension; F43.10 Post-traumatic stress disorder, unspecified; F32.A Depression, unspecified; F41.9 Anxiety disorder, unspecified; E66.3 Overweight; Z20.822 Contact with and (suspected) exposure to COVID-19
CPT/HCPCS: 36415; 70496; 70498; 70551; 71045; 80048; 80053; 81003; 81015; 82550; 83036; 83690; 83735; 84484; 85025; 85610; 85730; 87635; 93005; 96361; 96372; 96374; 96375; 96376; 97162; 99284; C9803; G0378; J1650; J2060; J2405; J3475; Q9967

== ENCOUNTER → 2022-07-15 09:46 | Outpatient (CLI) | payer MEDICARE, SELFPAY ==
[2022-06-11 19:05] VITALS: BMI 29.0
== END ==
PROVIDERS: PCP Family Medicine; Visit Provider Nurse Practitioner Family
DX: N39.0 Urinary tract infection, site not specified (principal)
CPT/HCPCS: 87077; 87086; 87186

== ENCOUNTER → 2022-08-01 10:48 | Outpatient (CLI) | payer MEDICARE, SELFPAY ==
[2022-06-11 19:05] VITALS: BMI 29.0
--- NOTE | 2022-08-01 | DI.MG.S_ITS ---
BILATERAL DIGITAL SCREENING MAMMOGRAM 3D/2D WITH CAD: 08/01/2022 CLINICAL: Routine screening. Comparison is made to exams dated: 06/18/2021 mammogram, 06/15/2020 mammogram, and 06/12/2019 mammogram - [facility]. There are scattered areas of fibroglandular density in both breasts (category b / 25%-50% glandular tissue). Current study was also evaluated with a Computer Aided Detection (CAD) system. No significant masses, calcifications, or other findings are seen in either breast. There has been no significant interval change. IMPRESSION: NEGATIVE There is no mammographic evidence of malignancy. A 1 year screening mammogram is recommended. Based on the Tyrer Cuzick model (a risk assessment model) the patient's lifetime risk is 3.2% and her 10 year risk is 0.0%. According to the ACR, ACS, and NCCN guidelines, an annual breast MRI exam along with mammogram is recommended if the patient's lifetime risk is 20% or greater. This exam was interpreted at Station ID: [id number]. NOTE: For mammograms, a report in lay terms will be sent to the patient. Approximately 15% of breast malignancies will not be visualized mammographically. In the management of a palpable breast mass, a negative mammogram must not discourage biopsy of a clinically suspicious lesion. Electronically Signed By: Brandyn wilburn/lester:08/01/2022 16:26:49 letter sent: Normal Exam ACR BI-RADS Category 1: Negative [id number]
== END ==
PROVIDERS: PCP Family Medicine; Referring Provider Family Medicine; Visit Provider Family Medicine
DX: Z12.31 Encounter for screening mammogram for malignant neoplasm of breast (principal)
CPT/HCPCS: 77063; 77067

== ENCOUNTER → 2022-09-11 15:36 | Outpatient (CLI) | payer MEDICARE, SELFPAY ==
[2022-06-11 19:05] VITALS: BMI 29.0
[2022-09-11 17:04] LABS: Influenza A - CEPHEID Flu A NEGATIVE (NEGATIVE); Influenza B - CEPHEID Flu B NEGATIVE (NEGATIVE); Respiratory Syncytial Virus Negative (Negative)
[2022-09-11 17:29] LABS: COVID-19 CEPHEID 4-PLEX PCR Negative (Negative)
== END ==
PROVIDERS: PCP Family Medicine; Visit Provider Family Medicine
DX: R05.9 Cough, unspecified (principal); R06.09 Other forms of dyspnea; R53.83 Other fatigue
CPT/HCPCS: 0241U

== ENCOUNTER → 2022-09-11 15:50 | Outpatient (CLI) | payer MEDICARE, SELFPAY ==
[2022-06-11 19:05] VITALS: BMI 29.0
--- NOTE | 2022-09-11 15:54 | DI.RAD.S_ITS ---
PROCEDURE: XR CHEST 2V INDICATIONS: SOB TECHNIQUE: 2 views of the chest were acquired. COMPARISON: [facility], , XR CHEST 1V, 06/11/2022, 13:41. FINDINGS: Surgical changes and devices: None. Lungs and pleura: Lungs are clear. No pleural effusions or pneumothorax. Mediastinum: Mediastinal contours are normal. Heart size is normal. Bones and chest wall: No suspicious bony abnormalities. Soft tissues appear unremarkable. IMPRESSION: Normal two view chest x-ray Approved by: Apolinar Chiang M.D. on 09/11/2022 at 17:30
[2022-09-11 17:06] LABS: Hematocrit 40.1 % (36-46); Hemoglobin 13.4 g/dL (12.0-16.0); Mean Corpuscular HGB Conc 33.5 % (30-36); Mean Corpuscular Volume 86.6 fL (80-100); Platelet Count 170 X10^3/uL (150-400); Red Blood Cell Count 4.63 X10^6/uL (4.0-5.2); Red Cell Distribution Width 13.9 % (11.6-14.8); White Blood Cell Count 6.9 X10^3/uL (4.5-11.0)
[2022-09-11 17:38] LABS: BUN Creatinine Ratio 27.7 (6-22); Blood Urea Nitrogen 18 mg/dL (7-17); Calcium 9.9 mg/dL (8.4-10.2); Carbon Dioxide 30 mmol/L (22-32); Chloride 99 mmol/L (98-107); Estimated Glomerular Filt Rate > 60 mL/min (>60); Glucose 86 mg/dL (80-110); HEMOLYSIS 15 (0-50); Potassium 3.8 mmol/L (3.4-5.1); Sodium 135 mmol/L (137-145)
[2022-09-11 17:43] LABS: NT-proBNP (BNP-Adult 18+) 63 pg/mL (<450)
== END ==
PROVIDERS: PCP Family Medicine; Referring Provider Family Medicine; Visit Provider Family Medicine
DX: R06.09 Other forms of dyspnea (principal); R53.83 Other fatigue; R05.9 Cough, unspecified
CPT/HCPCS: 0241U; 36415; 71046; 80048; 83880; 85027

== ENCOUNTER 2022-09-26 11:25 | Emergency (ER) | payer MEDICARE, SELFPAY ==
[2022-09-26] VITALS (7 sets, daily range): BP systolic 136–161; BP diastolic 67–90; PULSE 56–65; RESP 15–26; TEMP 36.3; O2SAT 97–99; BMI 29.0; BMI 27.1
--- NOTE | 2022-09-26 11:35 | DI.RAD.S_ITS ---
PROCEDURE: XR CHEST 1V INDICATIONS: Shortness of breath TECHNIQUE: One view of the chest was acquired. COMPARISON: [facility], [place], XR CHEST 2V, 09/11/2022, 16:28. [facility], [place], XR CHEST 1V, 06/11/2022, 13:41. FINDINGS: Surgical changes and devices: None. Lungs and pleura: No dense consolidation or pleural effusion. Lung volumes are slightly low. Mediastinum: Mediastinal contours appear normal. Heart size is normal. Bones and chest wall: No suspicious bony lesions. Overlying soft tissues appear unremarkable. IMPRESSION: No acute radiographic abnormality. Dictated by: Domingo Castellano M.D. on 09/26/2022 at 12:22 Approved by: Domingo Castellano M.D. on 09/26/2022 at 12:22
[2022-09-26 11:48] LABS: Add Manual Diff / Slide Review NO; Basophils Absolute Auto 100 /uL (0-100); Basophils Percent Auto 0.9 % (0-2); Eosinophils Absolute Auto 200 /uL (0-450); Eosinophils Percent Auto 2.4 % (2-4); Hematocrit 38.6 % (36-46); Hemoglobin 12.8 g/dL (12.0-16.0); Lymphocytes Absolute Auto 2000 /uL (1100-4500); Lymphocytes Percent Auto 31.8 % (25-40); Mean Corpuscular HGB Conc 33.3 % (30-36); Mean Corpuscular Hemoglobin 29.2 PG (26-34); Mean Corpuscular Volume 87.8 fL (80-100); Monocytes Absolute Auto 600 /uL (0-900); Monocytes Percent Auto 9.2 % (3-14); Neutrophils Absolute Auto 3500 /uL (1500-7000); Neutrophils Percent Auto 55.7 % (50-75); Platelet Count 164 X10^3/uL (150-400); Red Blood Cell Count 4.39 X10^6/uL (4.0-5.2); Red Cell Distribution Width 14.7 % (11.6-14.8); White Blood Cell Count 6.3 X10^3/uL (4.5-11.0)
[2022-09-26 11:52] LABS: INR 1.1 (0.9-1.3); Prothrombin Time 12.2 SECONDS (10.1-12.7)
[2022-09-26 11:54] LABS: Alanine Aminotransferase 29 IU/L (<35); Albumin Globulin Ratio 1.8 (1.0-2.8); Alkaline Phosphatase 85 U/L (38-126); Aspartate Aminotransferase 38 IU/L (14-36); BUN Creatinine Ratio 21.1 (6-22); Bilirubin Total 0.8 mg/dL (0.2-1.3); Blood Urea Nitrogen 16 mg/dL (7-17); Calcium 9.9 mg/dL (8.4-10.2); Carbon Dioxide 29 mmol/L (22-32); Chloride 102 mmol/L (98-107); Estimated Glomerular Filt Rate > 60 mL/min (>60); Globulin 2.2 g/dL (1.7-4.1); Glucose 105 mg/dL (80-110); HEMOLYSIS 36 (0-50); Potassium 4.2 mmol/L (3.4-5.1); Sodium 136 mmol/L (137-145); Total Protein 6.2 g/dL (6.3-8.2)
[2022-09-26 11:55] LABS: Lactate (Lactic Acid) 0.8 mmol/L (0.7-2.1)
[2022-09-26 12:06] LABS: NT-proBNP (BNP-Adult 18+) 96 pg/mL (<450); Troponin I < 0.012 ng/mL (0.01-0.034)
--- NOTE | 2022-09-26 13:26 | ED.GENADULT ---
HPI - General Adult General Chief complaint: Shortness of Breath/Dyspnea Stated complaint: sent by [facility] SOB/weakness/lighthead Time Seen by Provider: 09/26/22 13:12 Source: patient Mode of arrival: Ambulatory History of Present Illness HPI narrative: Patient is a 77-year-old female who is here for evaluation of shortness of breath and weakness and lightheaded. Her shortness of breath has actually been going on for several weeks/months. She has seen her primary doctor and has a appointment scheduled again tomorrow. He also has a referral and to have a stress test. She is not have any cough. No chest pain. She states she is very short of breath with any sort of movement. No abdominal pain. No underlying lung pathology diagnosis. She went to the walk-in clinic today because she felt like she could not wait in order for the stress test to be scheduled. They sent her here to the emergency department. Related Data Previous Rx's Medication Instructions Recorded alprazolam 0.25 mg tablet 0.125 mg PO BEDTIME PRN anxiety 03/28/22 causing insomnia #60 tabs irbesartan 150 mg tablet 150 mg PO DAILY #90 tabs 06/07/22 lorazepam 0.5 mg tablet (Ativan) 0.5 - 1 mg PO BID PRN nausea and 06/12/22 vomiting #20 tabs meclizine 25 mg tablet 25 mg PO TID PRN dizziness #30 tabs 06/12/22 ondansetron 4 mg disintegrating 4 mg PO Q8HR PRN Nausea And 06/12/22 tablet Vomiting #30 tabs phenazopyridine 200 mg tablet 200 mg PO TID 6 doses #6 tabs 07/15/22 (Pyridium) trazodone 50 mg tablet 25 mg PO BEDTIME PRN insomnia #90 07/18/22 tabs acyclovir 400 mg tablet 400 mg PO TID PRN Rash #30 tabs 08/28/22 albuterol sulfate 90 mcg/actuation 2 puff inhalation Q4-6H PRN 09/26/22 aerosol inhaler shortness of breath or wheezing #8.5 grams Allergies Allergy/AdvReac Type Severity Reaction Status Date / Time No Known Drug Allergies Allergy Verified 09/26/22 11:32 Review of Systems Review of Systems ROS Unobtainable: All systems reviewed & are unremarkable except as noted in HPI and below Patient History Medical History Actinic keratosis of left cheek (02/2012) Asthma Asymptomatic PVCs Cataracts, bilateral Chicken pox Chronic back pain (~1979) Controlled type 2 diabetes mellitus without complication (2007) Depression with anxiety Diabetes type 2, controlled Fatigue (~07/2022) Flu-like symptoms Herpes, genital (~1964) 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 Hypertension (11/05/13) Hypertension (1973) Leg pain, bilateral (2010) Measles 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 (07/13/16) Night terrors Normal Papanicolaou smear Obesity (11/05/13) Overweight (BMI 25.0-29.9) Precancerous skin lesion (~2007) Rubella Surgical History Anesthesia H/O colonoscopy with polypectomy History of arthroplasty of right knee (02/23/14) History of cataract surgery (~11/2020) History of cholecystectomy History of inguinal hernia repair History of knee replacement (2009) History of local excision of skin lesion (~2007) History of ventral hernia repair Status post cholecystectomy (1995) Status post hernia repair (2012) Family History Mother Heart disease High cholesterol Congestive heart failure Father No problems noted. Social History household members: none Smoking Status: Former smoker alcohol intake: current Smoking Status: Former smoker alcohol intake frequency: a few times a month Substance Use Type: does not use Exam Initial Vital Signs Initial Vital Signs: Vital Signs Temperature 97.3 F L 09/26/22 11:32 Pulse Rate 65 09/26/22 11:32 Respiratory Rate 15 09/26/22 11:32 Blood Pressure 142/76 H 09/26/22 11:32 Pulse Oximetry 97 09/26/22 11:32 Oxygen Delivery Method Room Air 09/26/22 11:32 Const General: cooperative, comfortable and No ill appearing HENMT Head: normal to inspection and normocephalic Resp Effort & Inspection: normal respiratory effort Auscultation: clear to auscultation bilaterally Cardio Rate: regular rate Rhythm: regular rhythm GI Inspection: normal to inspection Skin General: no rashes or lesions noted Neuro General: patient alert, patient awake and moves all extremities Extrem General: normal to inspection and capillary refill normal Course Orders Ordered: ED Orders 09/26/22 11:34 Complete Blood Count AUTO DIFF Stat Comprehensive Metabolic Panel Stat Lactate (Lactic Acid) Stat NT-proBNP (BNP-Adult 18+) Stat Prothrombin Time INR Stat Troponin I Stat 09/26/22 11:35 XR chest 1V Stat EKG-12 Lead Stat Measure peak expiratory flow ONCE RT Consult Eval and Treat NOW 09/26/22 13:30 CT angio chest PE protocol Stat Vital Signs Vital signs: Vital Signs - 8 hr 09/26/22 11:32 09/26/22 13:10 09/26/22 13:11 Temperature 97.3 F L Pulse Rate 65 60 Respiratory Rate 15 25 H Blood Pressure 142/76 H 161/71 H Pulse Oximetry 97 98 Oxygen Delivery Method Room Air 09/26/22 13:11 09/26/22 13:30 09/26/22 13:30 Temperature Pulse Rate 57 L 56 L Respiratory Rate 24 26 H Blood Pressure 136/67 Pulse Oximetry 99 99 Oxygen Delivery Method 09/26/22 14:00 09/26/22 14:30 09/26/22 14:47 Temperature Pulse Rate 60 59 L 60 Respiratory Rate 24 21 Blood Pressure Pulse Oximetry 99 98 99 Oxygen Delivery Method 09/26/22 14:47 Temperature Pulse Rate Respiratory Rate Blood Pressure 148/90 H Pulse Oximetry Oxygen Delivery Method Medical Decision Making Medical Records Medical records reviewed: Yes I reviewed the patient's medical records. Lab Data Lab results reviewed: Yes I reviewed the patient's lab results. 09/26/22 11:34 09/26/22 11:34 Labs: Lab Results 09/26/22 09/26/22 09/26/22 Range/Units 11:34 11:34 11:34 WBC 6.3 (4.5-11.0) X10^3/uL RBC 4.39 (4.0-5.2) X10^6/uL Hgb 12.8 (12.0-16.0) g/dL Hct 38.6 (36-46) % MCV 87.8 (80-100) fL MCH 29.2 (26-34) PG MCHC 33.3 (30-36) % RDW 14.7 (11.6-14.8) % Plt Count 164 (150-400) X10^3/uL Neut % (Auto) 55.7 (50-75) % Lymph % (Auto) 31.8 (25-40) % [place] % (Auto) 9.2 (3-14) % Eos % (Auto) 2.4 (2-4) % Baso % (Auto) 0.9 (0-2) % Neut # (Auto) 3500 (7062-6762) /uL Lymph # (Auto) 2000 (2259-9224) /uL [place] # (Auto) 600 (0-900) /uL Eos # (Auto) 200 (0-450) /uL Baso # (Auto) 100 (0-100) /uL PT 12.2 (10.1-12.7) SECONDS INR 1.1 (0.9-1.3) Sodium 136 L (137-145) mmol/L Potassium 4.2 (3.4-5.1) mmol/L Chloride 102 (98-107) mmol/L Carbon Dioxide 29 (22-32) mmol/L BUN 16 (7-17) mg/dL Creatinine 0.76 (0.52-1.04) mg/dL Estimated GFR > 60 (>60) mL/min BUN/Creatinine Ratio 21.1 (6-22) Glucose 105 (80-110) mg/dL Lactate (0.7-2.1) mmol/L Calcium 9.9 (8.4-10.2) mg/dL Total Bilirubin 0.8 (0.2-1.3) mg/dL AST 38 H (14-36) IU/L ALT 29 (<35) IU/L Alkaline Phosphatase 85 (38-126) U/L Troponin I < 0.012 (0.01-0.034) ng/mL NT-Pro-B Natriuret Pep 96 (<450) pg/mL Total Protein 6.2 L (6.3-8.2) g/dL Albumin 4.0 (3.5-5.0) g/dL Globulin 2.2 (1.7-4.1) g/dL Albumin/Globulin Ratio 1.8 (1.0-2.8) // Range/Units 11:34 WBC (4.5-11.0) X10^3/uL RBC (4.0-5.2) X10^6/uL Hgb (12.0-16.0) g/dL Hct (36-46) % MCV (80-100) fL MCH (26-34) PG MCHC (30-36) % RDW (11.6-14.8) % Plt Count (150-400) X10^3/uL Neut % (Auto) (50-75) % Lymph % (Auto) (25-40) % [place] % (Auto) (3-14) % Eos % (Auto) (2-4) % Baso % (Auto) (0-2) % Neut # (Auto) (8789-3542) /uL Lymph # (Auto) (4685-2693) /uL [place] # (Auto) (0-900) /uL Eos # (Auto) (0-450) /uL Baso # (Auto) (0-100) /uL PT (10.1-12.7) SECONDS INR (0.9-1.3) Sodium (137-145) mmol/L Potassium (3.4-5.1) mmol/L Chloride (98-107) mmol/L Carbon Dioxide (22-32) mmol/L BUN (7-17) mg/dL Creatinine (0.52-1.04) mg/dL Estimated GFR (>60) mL/min BUN/Creatinine Ratio (6-22) Glucose (80-110) mg/dL Lactate 0.8 (0.7-2.1) mmol/L Calcium (8.4-10.2) mg/dL Total Bilirubin (0.2-1.3) mg/dL AST (14-36) IU/L ALT (<35) IU/L Alkaline Phosphatase (38-126) U/L Troponin I (0.01-0.034) ng/mL NT-Pro-B Natriuret Pep (<450) pg/mL Total Protein (6.3-8.2) g/dL Albumin (3.5-5.0) g/dL Globulin (1.7-4.1) g/dL Albumin/Globulin Ratio (1.0-2.8) Imaging Data CT scan - chest: Radiologist's Impression: PROCEDURE:? CT ANGIO CHEST PE PROTOCOL ? INDICATIONS:? SOB and pain ? TECHNIQUE:? After the administration of intravenous contrast, 2 mm thick sections acquired from the pulmonary apices to the posterior costophrenic angles.? 3-dimensional maximum intensity projection (MIP) coronal and sagittal reformats were then acquired through the thorax.? For radiation dose reduction, the following was used:? automated exposure control, adjustment of mA and/or kV according to patient size.? ? COMPARISON:? None. ? FINDINGS:? Image quality:? Good ? Lungs and pleura:? No airspace disease.? No pleural effusions.? Basilar scarring/atelectasis.? No pulmonary nodule identified requiring followup. Micronodules can be optionally followed in 1 year for high risk patients, vs. enrollment in lung cancer screening.? For example on the left.? ? Mediastinum, heart, and esophagus:? No acute pulmonary embolism identified.? No pathologic adenopathy by size criteria.? There are coronary calcifications. ? Chest wall and thyroid:? Unremarkable. ? Upper abdomen:? Retrocrural dilated fluid structure adjacent to aorta, incidentally noted of uncertain etiology.? Cholecystectomy clips.? Upper abdomen is otherwise unremarkable on these limited arterial phase images. ? Bones:? Degenerative changes.? No acute or suspicious abnormality. ? IMPRESSION:? No acute pulmonary embolism.? No large area of airspace disease.? No pleural effusions. ? There are coronary calcifications. ? Other findings as above. Chest x-ray: Radiologist's Impression: PROCEDURE:? XR CHEST 1V ? INDICATIONS:? Shortness of breath ? TECHNIQUE:? One view of the chest was acquired.? ? COMPARISON:? [facility], , XR CHEST 2V, 09/11/2022, 16:28.? [facility], , XR CHEST 1V, 06/11/2022, 13:41. ? FINDINGS:? ? Surgical changes and devices:? None.? ? Lungs and pleura:? No dense consolidation or pleural effusion.? Lung volumes are slightly low. ? Mediastinum:? Mediastinal contours appear normal.? Heart size is normal.? ? Bones and chest wall:? No suspicious bony lesions.? Overlying soft tissues appear unremarkable.? ? IMPRESSION:? No acute radiographic abnormality. ECG Data Attestation: I personally reviewed and interpreted this ECG as follows: Interpretation: Sinus rhythm Ventricular rate is 60 Normal axis Normal QRS Normal QTC No ST T wave changes MDM Narrative Medical decision making narrative: Patient has had symptoms for weeks if not longer. Chest x-ray today is negative. CTA is negative. Low suspicion for ACS. No indication for pneumonia. She is not wheezing. No indication for antibiotics. No further workup required here in the emergency department. I did advise that she continue to keep her appointment with her primary doctor tomorrow so they can discuss the stress testing and potentially pulmonary function testing if her primary doctor felt this was appropriate. Patient expressed understanding and agreement. Discharge Plan Departure Patient Disposition: Home Clinical Impression: Shortness of Breath Instructions: DI for Shortness of Breath Activity Restrictions/Additional Instructions: I do recommend that you keep all of your scheduled medical appointments. You can talk with your primary doctor about the indications for pulmonary function testing. Continue to take all of your medications as directed. Return to the emergency department for new symptoms. Prescriptions: No Action phenazopyridine [Pyridium] 200 mg tablet 200 mg PO TID 0 Days Qty: 6 0RF trazodone 50 mg tablet 25 mg PO BEDTIME PRN (Reason: insomnia) Qty: 90 0RF Rx Instructions: can increase to max 150mg nightly acyclovir 400 mg tablet 400 mg PO TID PRN (Reason: Rash) Qty: 30 0RF Rx Instructions: Start at first symptoms and take for 5 days per outbreak. albuterol sulfate 90 mcg/actuation HFA aerosol inhaler 2 puff inhalation Q4-6H PRN (Reason: shortness of breath or wheezing) Qty: 8.5 0RF irbesartan 150 mg tablet 150 mg PO DAILY Qty: 90 1RF alprazolam 0.25 mg tablet 0.125 mg PO BEDTIME PRN (Reason: anxiety causing insomnia) Qty: 60 0RF Rx Instructions: continue with 1/2 tab as needed for anxiety causing insomnia if other sleep and relaxation strategies are not sufficient. continue to work to use this less and less over time. meclizine 25 mg tablet 25 mg PO TID PRN (Reason: dizziness) Qty: 30 0RF ondansetron 4 mg Tablet,Disintegrating 4 mg PO Q8HR PRN (Reason: Nausea And Vomiting) Qty: 30 0RF lorazepam [Ativan] 0.5 mg tablet 0.5 - 1 mg PO BID PRN (Reason: nausea and vomiting) Qty: 20 0RF Referrals: Weeks,Irasema, DO [Primary Care Provider] - Stand Alone Forms: Patient Portal/API
--- NOTE | 2022-09-26 13:30 | DI.CT.S_ITS ---
PROCEDURE: CT ANGIO CHEST PE PROTOCOL INDICATIONS: SOB and pain TECHNIQUE: After the administration of intravenous contrast, 2 mm thick sections acquired from the pulmonary apices to the posterior costophrenic angles. 3-dimensional maximum intensity projection (MIP) coronal and sagittal reformats were then acquired through the thorax. For radiation dose reduction, the following was used: automated exposure control, adjustment of mA and/or kV according to patient size. COMPARISON: None. FINDINGS: Image quality: Good Lungs and pleura: No airspace disease. No pleural effusions. Basilar scarring/atelectasis. No pulmonary nodule identified requiring followup. Micronodules can be optionally followed in 1 year for high risk patients, vs. enrollment in lung cancer screening. For example on the left. Mediastinum, heart, and esophagus: No acute pulmonary embolism identified. No pathologic adenopathy by size criteria. There are coronary calcifications. Chest wall and thyroid: Unremarkable. Upper abdomen: Retrocrural dilated fluid structure adjacent to aorta, incidentally noted of uncertain etiology. Cholecystectomy clips. Upper abdomen is otherwise unremarkable on these limited arterial phase images. Bones: Degenerative changes. No acute or suspicious abnormality. IMPRESSION: No acute pulmonary embolism. No large area of airspace disease. No pleural effusions. There are coronary calcifications. Other findings as above. Dictated by: Domingo Castellano M.D. on 09/26/2022 at 14:13 Approved by: Domingo Castellano M.D. on 09/26/2022 at 14:18
== END 2022-09-26 14:54 | disposition home or self-care (01) ==
PROVIDERS: Emergency Provider Emergency Medicine; PCP Family Medicine
DX: R06.02 Shortness of breath (principal); R07.9 Chest pain, unspecified
CPT/HCPCS: 36415; 71045; 71275; 80053; 83605; 83880; 84484; 85025; 85610; 93005; 99283; 99284

== ENCOUNTER → 2022-10-05 09:15 | Outpatient (CLI) | payer MEDICARE, SELFPAY ==
[2022-09-26 09:20] VITALS: BMI 29.0
--- NOTE | 2022-10-11 10:29 | PM.PFT.1 ---
Pulmonary Function Test Referral & Results Date Patient Seen: 10/05/22 Results: The spirometry demonstrates an FVC of 2.77 L which is 105% of predicted. The FEV1 was measured at 2.05 L which is 104% of predicted. The FEV1/FVC ratio was 74 which is 98% of predicted. Following the administration of bronchodilator there was 62% improvement in FEF 25-75%. Lung volumes show an SVC of 2.75 L which is 104% of predicted. The diffusing capacity was measured at 25.11 which is 109% of predicted. The maximum voluntary ventilation was reduced Interpretation: This study demonstrates normal spirometry although there is evidence of benefit in small airway flow after bronchodilator administration as above based on improvement in FEF 25-75% Patient's diffusing capacity is also normal This study therefore demonstrates normal pulmonary function
== END ==
PROVIDERS: PCP Family Medicine; Referring Provider Family Medicine; Visit Provider Family Medicine
DX: R06.02 Shortness of breath (principal); Z87.891 Personal history of nicotine dependence; J98.8 Other specified respiratory disorders
CPT/HCPCS: 94060; 94726; 94729

== ENCOUNTER → 2022-10-16 07:13 | Outpatient (CLI) | payer MEDICARE, SELFPAY ==
[2022-09-26 09:20] VITALS: BMI 29.0
--- NOTE | 2022-10-18 01:58 | DI.NM.S_ITS ---
DATE OF SERVICE: 10/17/2022 PROCEDURE: Pharmacological perfusion study. INDICATIONS: Shortness of breath, fatigue, hypertension, hyperlipidemia, PVD. RADIOPHARMACEUTICAL: 25.2 millicurie technetium-99m Myoview IV was injected at stress and 25.5 millicurie technetium-99m Myoview IV was injected at rest. CARDIAC STRESS: The patient underwent IV Lexiscan perfusion study under the supervision of an attending staff. The patient remained hemodynamically stable. Baseline blood pressure 142/80. Baseline rhythm sinus. During stress, no convincing ischemic changes seen. Rare PVCs including couplet without any ventricular tachycardia. No ischemic EKG changes. The patient had minimal dyspnea. No chest discomfort. RAW DATA: There is a breast shadow seen. Increased subdiaphragmatic activity. GATED STUDY: Resting LV ejection fraction 81 and stress LV ejection fraction 83% without any obvious wall motion abnormalities. Resting end-diastolic volume 81 mL. TID ratio 1.22. It is a pharmacological perfusion study. MYOCARDIAL PERFUSION SCAN: Stress supine, resting supine and stress prone images were compared to each other. Stress supine and resting supine images revealed minimally decreased perfusion of inferoapex, which got completely resolved during stress prone images suggestive of diaphragmatic tissue attenuation artifact. No convincing ischemia or infarction. CONCLUSION: This is a normal myocardial perfusion study with evidence of diaphragmatic tissue attenuation artifact which got resolved during stress prone images. Preserved LV. Overall, low-risk myocardial perfusion scan. Evelia Buchanan - DOE/meena/kt doc#: [id number]/job#: [id number] dd: 10/17/2022 17:42:00 dt: 10/18/2022 01:52:00 DICTATING MD/COPIES TO: Lakshmi Cooney MD COPIES MNE: VINCE;
== END ==
PROVIDERS: PCP Family Medicine; Referring Provider Family Medicine; Visit Provider Family Medicine
DX: I49.3 Ventricular premature depolarization (principal); R06.02 Shortness of breath; I10 Essential (primary) hypertension; E78.5 Hyperlipidemia, unspecified
CPT/HCPCS: 78452; 93017; A9502; J2785

== ENCOUNTER → 2022-12-05 08:25 | Outpatient (CLI) | payer MEDICARE, SELFPAY ==
[2022-09-26 09:20] VITALS: BMI 29.0
[2022-12-05 09:46] LABS: Creatine Kinase 34 U/L (30-135)
[2022-12-12 11:10] LABS: MuSK Antibodies <1.0 U/mL (.)
== END ==
PROVIDERS: PCP Family Medicine; Referring Provider Internal Medicine; Visit Provider Internal Medicine
DX: R06.09 Other forms of dyspnea (principal)
CPT/HCPCS: 36415; 82550; 83519; 86255

== ENCOUNTER → 2022-12-07 | Outpatient (CLI) | payer MEDICARE, SELFPAY ==
[2022-09-26 09:20] VITALS: BMI 29.0
--- NOTE | 2022-12-07 | DI.RAD.S_ITS ---
PROCEDURE: FL FLUOROSCOPY COMPARISON: [facility], CR, XR CHEST 1V, 09/26/2022, 11:38. INDICATIONS: Dyspnea on exertion FINDINGS: A sniff test was performed under fluoroscopy. There is normal diaphragmatic excursion bilaterally with sniffing. IMPRESSION: Normal diaphragmatic excursion with sniffing. No findings to suggest diaphragmatic paralysis. Dictated by: Jeramie Dong M.D. on 12/12/2022 at 10:09 Approved by: Jeramie Dong M.D. on 12/12/2022 at 10:10
== END ==
LOC: RAD 10:15
PROVIDERS: PCP Family Medicine; Referring Provider Internal Medicine; Visit Provider Internal Medicine
DX: R06.09 Other forms of dyspnea (principal)
CPT/HCPCS: 76000

== ENCOUNTER → 2022-12-11 08:04 | Outpatient (CLI) | payer MEDICARE, SELFPAY ==
[2022-09-26 09:20] VITALS: BMI 29.0
--- NOTE | 2022-12-11 | DI.ECHO.S_ITS ---
[facility] +---------+ : : [address] : : : : [id number] : : : : Phone: [phone] Echocardiogram Report + + :Name: TANIKA KHAN Study Date: 12/11/2022 Height: 63 in : :[facility] ReadingLocation: Weight: 145 lb : : Gender: Female BSA: 1.7 m2 : :: 1945 Age: 77 yrs BP: 133/84 mmHg: :Reason For Study: DYSPNEA ON EXERTION : :Ordering Physician: ROMEO : :MARTHA Performed By: Latanya Storey : :Referring: MATRHA WALTERS : + + Interpretation Summary The patient was in sinus bradycardia with heart rates between 52-59 bpm during the exam. The left ventricle is normal in size and wall thickness. Left ventricular systolic function is normal. The ejection fraction is estimated to be 55-60%. The right ventricle is normal in size and function. There is mild mitral regurgitation. There is mild to moderate tricuspid regurgitation. The right ventricular systolic pressure is estimated to be at least 31 mmHg based on an estimated right atrial pressure of 3 mm Hg. Procedure: A two-dimensional transthoracic echocardiogram with color flow and Doppler was performed. The study quality was technically adequate. There is no prior echocardiogram noted for this patient. The patient was in sinus bradycardia with heart rates between 52-59 bpm during the exam. Left Ventricle: The left ventricle is normal in size and wall thickness. There is no thrombus. The ejection fraction is estimated to be 55-60%. Left ventricular systolic function is normal. There are no focal wall motion abnormalities. Diastolic parameters suggest a relaxation abnormality of the left ventricle, consistent with probable normal filling pressures. Right Ventricle: The right ventricle is normal in size and function. Atria: The left atrial size is normal. Right atrial size is normal. There is no Doppler evidence for an interatrial shunt. Mitral Valve: The mitral valve leaflets appear mildly thickened, but open well. There is mild mitral regurgitation. Aortic Valve: The aortic valve is trileaflet. The aortic valve opens well. The aortic valve is slightly calcified. There is no aortic valve stenosis. There is trace aortic regurgitation. Tricuspid Valve: The tricuspid valve is normal. There is mild to moderate tricuspid regurgitation. The right ventricular systolic pressure is estimated to be at least 31 mmHg based on an estimated right atrial pressure of 3 mm Hg. Pulmonic Valve: The pulmonic valve leaflets are thin and pliable; valve motion is normal. There is no pulmonic valvular regurgitation. Great Vessels: The aortic root is normal size. The dimensions of the ascending aorta are normal. The IVC is of normal diameter and collapses greater than 50% with a sniff. This suggests a low right atrial pressure of 3 mm Hg. Pericardium/ Pleura There is no pericardial effusion. There is no pleural effusion. MMode/2D Measurements & Calculations LVIDd: 5.0 cm LVOT diam: 2.0 cm LVIDs: 3.2 cm Ao root diam: 2.9 cm FS: 35.1 % asc Aorta Diam: 3.1 cm EPSS: 0.87 cm Ao Arch Diam (Prox Trans): 3.0 cm IVSd: 0.82 cm LVPWd: 0.79 cm LV rivas. diameter/BSA (cm/m^2): 2.9 LV sys. diameter/BSA (cm/m^2): 1.9 LA A2 area: 17.3 cm2 RA long axis: 5.1 cm LA A4 area: 15.9 cm2 RA area: 16.6 cm2 LA length (vol): 5.6 cm RA vol: 46.4 ml LA vol: 41.5 ml RA : 27.5 ml/m2 LA vol index: 24.6 ml/m2 IVC diam: 1.9 cm RVD1 (basal): 3.7 cm RVD2 (mid): 2.4 cm TAPSE: 1.8 cm Doppler Measurements & Calculations Ao V2 max: 144.7 cm/sec LVOT Max Devonte: 93.4 cm/sec Ao V2 mean: 102.0 cm/sec LV V1 max P.5 mmHg Ao max P.4 mmHg LV V1 VTI: 23.2 cm Ao mean P.6 mmHg JUNIOR(I,D): 2.0 cm2 Ao V2 VTI: 35.7 cm JUNIOR(V,D): 2.0 cm2 sev ratio: 0.65 JUNIOR indexed to BSA (cm^2/m^2): 1.2 MV E max devonte: 76.2 cm/sec TR max devonte: 266.0 cm/sec MV A max devonte: 94.7 cm/sec TR max P.3 mmHg MV E/A: 0.80 PA V2 max: 83.4 cm/sec Med Peak E' Devonte: 7.6 cm/sec PA V2 mean: 63.2 cm/sec E/E' med: 10.1 PA mean P.7 mmHg Lat Peak E' Devonte: 9.7 cm/sec PA pr(Accel): 27.6 mmHg E/E' lat: 7.8 E/e' average: 8.9 MV dec time: 0.26 sec SV(LVOT): 71.1 ml Reading Physician:12:35 PM
== END ==
PROVIDERS: PCP Family Medicine; Referring Provider Internal Medicine; Visit Provider Internal Medicine
DX: R06.09 Other forms of dyspnea (principal); I08.1 Rheumatic disorders of both mitral and tricuspid valves
CPT/HCPCS: 93306

== ENCOUNTER → 2023-04-24 08:21 | Outpatient (CLI) | payer MEDICARE, SELFPAY ==
[2022-09-26 09:20] VITALS: BMI 29.0
[2023-04-24 09:41] LABS: Alanine Aminotransferase 21 IU/L (<35); Albumin 3.7 g/dL (3.5-5.0); Albumin Globulin Ratio 1.7 (1.0-2.8); Alkaline Phosphatase 78 U/L (38-126); Aspartate Aminotransferase 29 IU/L (14-36); BUN Creatinine Ratio 22.6 (6-22); Bilirubin Total 0.9 mg/dL (0.2-1.3); Blood Urea Nitrogen 14 mg/dL (7-17); Calcium 10.4 mg/dL (8.4-10.2); Carbon Dioxide 30 mmol/L (22-32); Chloride 102 mmol/L (98-107); Cholesterol 152 mg/dL (140-199); Estimated Glomerular Filt Rate > 60 mL/min (>60); Globulin 2.2 g/dL (1.7-4.1); Glucose 77 mg/dL (80-110); HDL Cholesterol 59 mg/dL (40-60); HEMOLYSIS < 15 (0-50); LDL Cholesterol Calculated 82 mg/dL (<100); Potassium 3.5 mmol/L (3.4-5.1); Sodium 137 mmol/L (137-145); Total Protein 5.9 g/dL (6.3-8.2); Triglycerides 57 mg/dL (35-150)
[2023-04-24 09:45] LABS: High Sensitivity CRP - Cardiac 0.6 mg/L (1.0-3.0)
== END ==
PROVIDERS: Family Provider Family Medicine; PCP Family Medicine; Referring Provider Family Medicine; Visit Provider Family Medicine
DX: G45.9 Transient cerebral ischemic attack, unspecified (principal)
CPT/HCPCS: 36415; 80053; 80061; 86140

== ENCOUNTER → 2023-04-25 12:18 | Outpatient (CLI) | payer MEDICARE, SELFPAY ==
[2022-09-26 09:20] VITALS: BMI 29.0
[2023-04-26 12:11] LABS: Ionized Calcium 5.3 mg/dL (4.5-5.6)
[2023-04-27 09:14] LABS: Parathyroid Hormone Int 61 pg/mL (15-65)
== END ==
PROVIDERS: Family Provider Family Medicine; PCP Family Medicine; Referring Provider Family Medicine; Visit Provider Family Medicine
DX: E83.52 Hypercalcemia (principal)
CPT/HCPCS: 36415; 82330; 83970

== ENCOUNTER → 2023-05-01 08:16 | Outpatient (CLI) | payer MEDICARE, SELFPAY ==
[2022-09-26 09:20] VITALS: BMI 29.0
--- NOTE | 2023-05-01 08:18 | DI.US.S_ITS ---
PROCEDURE: US CAROTID DOPPLER BI INDICATIONS: TIA TECHNIQUE: Color and pulse Doppler interrogation was performed of both carotid systems, with image documentation and velocity measurements. COMPARISON: [facility], CT, CT ANGIO HEAD AND NECK, 06/11/2022, 14:07. FINDINGS: Stenosis calculations are based on SRU (Society of Radiologists in Ultrasound) criteria. Right side: Brachial blood pressure: 149/77 mm Hg. Common carotid artery peak systolic velocity: 157 cm/sec. Internal carotid artery peak systolic velocity: 87 cm/sec. Internal carotid artery end diastolic velocity: 21 cm/sec. External carotid artery peak systolic velocity: 78 cm/sec. ICA/CCA peak systolic ratio: 0.6. Baker scale imaging description: Mild noncalcified plaque. Percent internal carotid artery stenosis: Less than 50% stenosis. Vertebral artery: Flow direction is antegrade. Left side: Brachial blood pressure: 155/83 mm Hg. Common carotid artery peak systolic velocity: 80 cm/sec. Internal carotid artery peak systolic velocity: 82 cm/sec. Internal carotid artery end diastolic velocity: 25 cm/sec. External carotid artery peak systolic velocity: 80 cm/sec. ICA/CCA peak systolic ratio: 1.0. Baker scale imaging description: Trace noncalcified plaque. Percent internal carotid artery stenosis: Less than 50% stenosis. Vertebral artery: Flow direction is antegrade. Multiple small thyroid nodules are again seen. IMPRESSION: 1. Right ICA: Less than 50 % stenosis. 2. Left ICA: Less than 50 % stenosis. 3. Antegrade flow in the bilateral vertebral arteries. Dictated by: Ronnie Ross M.D. on 05/01/2023 at 11:52 Approved by: Ronnie Ross M.D. on 05/01/2023 at 11:55
== END ==
PROVIDERS: Family Provider Family Medicine; PCP Family Medicine; Referring Provider Family Medicine; Visit Provider Family Medicine
DX: G45.9 Transient cerebral ischemic attack, unspecified (principal)
CPT/HCPCS: 93880

== ENCOUNTER → 2023-06-01 11:00 | Outpatient (CLI) | payer MEDICARE, SELFPAY ==
[2022-09-26 09:20] VITALS: BMI 29.0
[2023-06-01 13:35] LABS: BUN Creatinine Ratio 22.4 (6-22); Blood Urea Nitrogen 17 mg/dL (7-17); Calcium 10.1 mg/dL (8.4-10.2); Carbon Dioxide 29 mmol/L (22-32); Chloride 102 mmol/L (98-107); Estimated Glomerular Filt Rate > 60 mL/min (>60); Glucose 89 mg/dL (80-110); HEMOLYSIS < 15 (0-50); Potassium 3.6 mmol/L (3.4-5.1); Sodium 136 mmol/L (137-145)
== END ==
PROVIDERS: Family Provider Family Medicine; PCP Family Medicine; Referring Provider Family Medicine; Visit Provider Family Medicine
DX: G45.9 Transient cerebral ischemic attack, unspecified (principal); I10 Essential (primary) hypertension; R60.0 Localized edema
CPT/HCPCS: 36415; 80048

== ENCOUNTER 2023-07-11 12:00 | Outpatient (RCR) | payer MEDICARE, SELFPAY ==
[2022-09-26 09:20] VITALS: BMI 29.0
--- NOTE | 2023-03-14 18:30 | PT.OIE ---
Current Diagnoses Other disorders of vestibular function, left ear (03/14/23) Muscle weakness (generalized) (03/14/23) Difficulty in walking, not elsewhere classified (03/14/23) Unsteadiness on feet (03/14/23) Abnormal posture (03/14/23) Past Medical History (Last Reviewed 09/26/22 @ 17:55 by Juancho Roque DO) Actinic keratosis of left cheek (02/2012) Asthma Asymptomatic PVCs Cataracts, bilateral Chicken pox Chronic back pain (~1979) Controlled type 2 diabetes mellitus without complication (2007) Depression with anxiety Diabetes type 2, controlled Fatigue (~07/2022) Flu-like symptoms Herpes, genital (~1964) 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 Hypertension (11/05/13) Hypertension (1973) Leg pain, bilateral (2010) Measles 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 (07/13/16) Night terrors Normal Papanicolaou smear Obesity (11/05/13) Overweight (BMI 25.0-29.9) Precancerous skin lesion (~2007) Rubella Past Surgical History (Last Reviewed 06/12/22 @ 00:22 by Kimberly Monique, [facility]) Anesthesia H/O colonoscopy with polypectomy History of arthroplasty of right knee (02/23/14) History of cataract surgery (~11/2020) History of cholecystectomy History of inguinal hernia repair History of knee replacement (2009) History of local excision of skin lesion (~2007) History of ventral hernia repair Status post cholecystectomy (1995) Status post hernia repair (2012) Visit Care Team Role Provider Type Irasema Kemp DO Family Provider Physician Primary Care Provider Specialty: Medical Address: [address] [place] [address], [id number] Email: [email or web address] Janes Milligan MD Attending Provider Physician Referring Provider Specialty: Ear, Nose, Throat Address: [address] [place] [address], [id number] Email: [email or web address] Physical Therapy Initial Evaluation PT-OP-A Visit Information Start: 03/13/23 07:53 Freq: Status: Active Protocol: Document 03/14/23 09:02 [facility] (Rec: 03/14/23 11:12 [facility] [id number]) Out-Patient Physical Therapy Visit Information Visit Information Visit Type Initial Evaluation Visit Note 05/23 Visit Start Time 09:02 Visit Stop Time 09:53 Total Visit Minutes 51 Visit Number 1 Number of PROTECTIVE SIGNAL REPAIRER Visits 0 PT-OP-B Current Condition Start: 03/13/23 07:53 Freq: Status: Active Protocol: Document 03/14/23 09:02 [facility] (Rec: 03/14/23 11:12 [facility] [id number]) Current Condition History of Current Condition History of Current Condition Pt reports her main issue is her balance. Pt had nausea/ vomitting/dizziness/FRAUSTO starting end of May and was diagnosed w/vestibular neuritis. She feels like when she turns her head, it feels like her eyes and head are not in sync. She doesn't feel secure anymore. This has just been since May. Pt had COVID last summer. She saw a private banker and tool adjuster etc. She is having some symtoms re: this. She used to go for very long walks like [employer] and couldn't do it anymore. She got too short of breath. They did tons of tests . She was seeing Jessica Levine PT in [place] and transfering here. She has been going for a few months. She has been focusing on the balance and her hip issue. She has been doing some eye exercsies and some head/neck work. 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 She still goes for a walk and uses a cane now and goes about 2 miles and it is all flat 3x week and doesn't walk alone. They are better than they were in May but still frequently. She used to wake up with them but now they are just random. Most of the time they come/go during the day. Typically about every day that last under an hr and sometimes gets more than 1 a day. Notes FRAUSTO are in frontal region and orbital. When first started, they were pretty constant. Hip pain is more mild and it comes/goes and has been present for the past 1 year. It bothers her when walking longer and turning over in bed . Pain in ant lat hip and sometimes shoots down lat thigh. She does live alone and wears a life alert all the time. Pt has been so weak and feels really weak and occ in the shower needs to sit down d /t feeling winded or weak/ tired in legs) Treatment Goals Patient/Caregiver Goals Have better balance, not feel so insecure about doing physical activities herself. Feel more secure about taking care of template reproduction technician (get in/out of shower(walk in), change a lightbulb etc) PT-OP-C Subjective Start: 03/13/23 07:53 Freq: Status: Active Protocol: Document 03/14/23 09:02 [facility] (Rec: 03/14/23 13:48 [facility] [id number]) Patient Questionnaires ABC- Activity Specific Balance Confidence Scale ABC Score 41.25 PT-OP-E Functional Tests Start: 03/14/23 13:42 Freq: Status: Active Protocol: Document 03/14/23 09:02 [facility] (Rec: 03/14/23 13:48 [facility] [id number]) Functional Tests 30 Second Sit to Stand Test Score 7 Comments pt felt dizzy shortly after; silver chair Dynamic Gait Index (DGI) Score 11/24 Five Times Sit to Stand Test Score 20 sec Comments silver chair Functional Gait Assessment Score 15/30 PT-OP-F Manual Assessment Start: 03/13/23 07:53 Freq: Status: Active Protocol: Document 03/14/23 09:02 [facility] (Rec: 03/14/23 13:50 [facility] [id number]) Manual Assessments Other Manual Assessments Other Manual Assessments 162/78 BP tested after sit to stand test PT-OP-G Mobility & Gait Start: 03/13/23 07:53 Freq: Status: Active Protocol: Document 03/14/23 09:02 [facility] (Rec: 03/14/23 11:12 [facility] [id number]) OP Gait Assessment Comments Gait Comments Pt has dec stance time on LLE and keeps arms to side for balance, lat leaning w/gait PT-OP-K Range of Motion Start: 03/13/23 07:53 Freq: Status: Active Protocol: Document 03/14/23 09:02 [facility] (Rec: 03/14/23 11:12 [facility] [id number]) Cervical Spine Range of Motion Cervical Spine Active Percentage Flexion 60 Extension 40 Rotation Left 50 Rotation Right 50 Lateral Flexion Left 40 Lateral Flexion Right 25 ROM Limitations Soft Tissue Tightness,Pain PT-OP-T Assessment and Plan Start: 03/13/23 07:53 Freq: Status: Active Protocol: Document 03/14/23 09:02 [facility] (Rec: 03/14/23 11:12 [facility] [id number]) Physical Therapy Assessment Rehab Potential Rehabilitation Potential Good Evaluation Complexity Number of Personal Factors/Comorbidities 3 or More Number of Body Systems Impaired 4 or More Clinical Presentation at Evaluation Unstable Impairments Impairments Activity Tolerance,Balance, Coordination,Functional Activities,Functional Mobility ,Gait,Pain,Posture,ROM,Soft Tissue Mobility,Strength, Transfers,Vestibular Goals activities Sales And Retail Management Recruiter Goal (LTG) Pt will report greater ease of template reproduction technician/ADLs like showering w/feeling of inc stability and less c/o weakness and fatigue LTG Duration 06/06/23 pain Short Term Goal (STG) Pt will report no hip pain w/ walk, allowing her to start to inc distance. STG Duration 05/12/23 Sales And Retail Management Recruiter Goal (LTG) Pt will report no more than 1 FRAUSTO a week. LTG Duration 06/06/23 strength Impairment 5x sit to stand: 20 sec; 30 sec sit to stand: 7 Short Term Goal (STG) Pt will improve 5x sit to stand to less than 15 sec to show improved LE strength and dec risk for falls. STG Duration 05/06/24 Sales And Retail Management Recruiter Goal (LTG) Pt will improve 30 sec sit to stand to at least 10 w/o dizziness after as appropriate w/age related norms in order to show improved LE strength/ activity tolerance and dec risk for falls. LTG Duration 06/06/23 balance Impairment DGI: 04/06 FGA: Short Term Goal (STG) Pt will improve DGI to at least 15/24 to show improved balance and dec risk for falls . STG Duration 04/24/23 Half-Way Goal (LTG) Pt will improve DGI to at least 20/24 and FGA to at least to show improved balance and dec risk for falls . LTG Duration 06/06/23 Assessment Summary Assessment Pt presents w/her main concern being dizziness and weakness w/limitation in activity tolerance. Pt's activity tolerance and strength dec getting COVID in Dec 2021 and dizziness started in May when she was diagnosed w/ vestibular neuritis. Per ENT note, pt has L vestibular weakness, which he believes is contributing to her dec balance. Pt has seen a tool adjuster and pulmonolgist about getting SOB quickly, but w/mult tests, nothing was found. She has postural disfunctions w/significant ribcage shear and has dec stance time on LLE. She demonstrated weakness w/sit to stand test and showed dec balance and inc risk for falls with DGI and FGA. Pt will require further vestibular assessment from vestibular therapist and would benefit from skilled PT to work on dec FRAUSTO, dec hip pain, improve posture, improve LE and core stability and balance in order to allow patient to do daily tasks w/ dec risk for falls and inc ease. Physical Therapy Plan Frequency and Duration Frequency of Treatment 1-2x/wk Duration of treatment (weeks) 12 Plan of Care Start Date 03/14/23 Plan of Care End Date 06/06/23 Therapeutic Interventions Therapeutic Interventions Balance Training,Canalithic Repositioning,Coordination Training,Gait Training,Home Exercise Program,Joint Mobilizations,Manual Therapy, Neuromuscular Re-education, Orthotic/Prosthetic Management ,Patient/Caregiver Education, Self-Care/Home Management,Soft Tissue Mobilization,Taping, Therapeutic Activities, Therapeutic Exercises, Vestibular Rehabilitation Modalities Cold Pack/Ice Massage,Hot Packs Next Visit Focus/Plan Next Note Type Treatment Note Next Visit Plan vestibular assessment, check other PT exercises, look at L hip dysfucntion and manually improve position, work on neck and cranium
--- NOTE | 2023-03-14 18:31 | PT.OPPOC ---
Physical, Occupational & Speech Therapy At [facility] Current Diagnoses Other disorders of vestibular function, left ear (03/14/23) Muscle weakness (generalized) (03/14/23) Difficulty in walking, not elsewhere classified (03/14/23) Unsteadiness on feet (03/14/23) Abnormal posture (03/14/23) Visit Care Team Role Provider Type Irasema Kemp DO Family Provider Physician Primary Care Provider Specialty: Medical Address: [address] [place] [address], [address] [place] [address], [id number] Email: [email or web address] Janes Milligan MD Attending Provider Physician Referring Provider Specialty: Ear, Nose, Throat Address: [address] [place] [address], [facility] Email: [email or web address] Plan Of Care PT-OP-T Assessment and Plan Start: 03/13/23 07:53 Freq: Status: Active Protocol: Document 03/14/23 09:02 [facility] (Rec: 03/14/23 11:12 [facility] [id number]) Physical Therapy Assessment Rehab Potential Rehabilitation Potential Good Evaluation Complexity Number of Personal Factors/Comorbidities 3 or More Number of Body Systems Impaired 4 or More Clinical Presentation at Evaluation Unstable Impairments Impairments Activity Tolerance,Balance, Coordination,Functional Activities,Functional Mobility ,Gait,Pain,Posture,ROM,Soft Tissue Mobility,Strength, Transfers,Vestibular Goals activities [facility] Goal (LTG) Pt will report greater ease of sap ariba consultant/ADLs like showering w/feeling of inc stability and less c/o weakness and fatigue LTG Duration 06/06/23 pain Short Term Goal (STG) Pt will report no hip pain w/ walk, allowing her to start to inc distance. STG Duration 05/12/23 Foam Dispenser Goal (LTG) Pt will report no more than 1 FRAUSTO a week. LTG Duration 06/06/23 strength Impairment 5x sit to stand: 20 sec; 30 sec sit to stand: 7 Short Term Goal (STG) Pt will improve 5x sit to stand to less than 15 sec to show improved LE strength and dec risk for falls. STG Duration 05/06/24 Foam Dispenser Goal (LTG) Pt will improve 30 sec sit to stand to at least 10 w/o dizziness after as appropriate w/age related norms in order to show improved LE strength/ activity tolerance and dec risk for falls. LTG Duration 06/06/23 balance Impairment DGI: 04/06 FGA: Short Term Goal (STG) Pt will improve DGI to at least 15 to show improved balance and dec risk for falls . STG Duration 04/24/23 [facility] Goal (LTG) Pt will improve DGI to at least and FGA to at least to show improved balance and dec risk for falls . LTG Duration 06/06/23 Assessment Summary Assessment Pt presents w/her main concern being dizziness and weakness w/limitation in activity tolerance. Pt's activity tolerance and strength dec getting COVID in Dec 2021 and dizziness started in May when she was diagnosed w/ vestibular neuritis. Per ENT note, pt has L vestibular weakness, which he believes is contributing to her dec balance. Pt has seen a piece goods clerk and pulmonolgist about getting SOB quickly, but w/mult tests, nothing was found. She has postural disfunctions w/significant ribcage shear and has dec stance time on LLE. She demonstrated weakness w/sit to stand test and showed dec balance and inc risk for falls with DGI and FGA. Pt will require further vestibular assessment from vestibular therapist and would benefit from skilled PT to work on dec FRAUSTO, dec hip pain, improve posture, improve LE and core stability and balance in order to allow patient to do daily tasks w/ dec risk for falls and inc ease. Physical Therapy Plan Frequency and Duration Frequency of Treatment 1-2x/wk Duration of treatment (weeks) 12 Plan of Care Start Date 03/14/23 Plan of Care End Date 06/06/23 Therapeutic Interventions Therapeutic Interventions Balance Training,Canalithic Repositioning,Coordination Training,Gait Training,Home Exercise Program,Joint Mobilizations,Manual Therapy, Neuromuscular Re-education, Orthotic/Prosthetic Management ,Patient/Caregiver Education, Self-Care/Home Management,Soft Tissue Mobilization,Taping, Therapeutic Activities, Therapeutic Exercises, Vestibular Rehabilitation Modalities Cold Pack/Ice Massage,Hot Packs Next Visit Focus/Plan Next Note Type Treatment Note Next Visit Plan vestibular assessment, check other PT exercises, look at L hip dysfucntion and manually improve position, work on neck and cranium Plan of Care Dates Plan of Care Start Date 03/14/23 Plan of Care End Date 06/06/23 Electronically Signed by: Kristal Milligan, PT 03/14/23 4507 If you are in agreement with this Plan of Care, please return a signed and dated copy. I have reviewed this Plan of Care and certify that the skilled therapy services above are required to meet the patient?s needs. Physician Signature Date Printed Name and Credentials Clinical Instructor Signature Printed Name and Credentials
--- NOTE | 2023-03-22 15:33 | PT.OTN ---
Current Diagnoses Other disorders of vestibular function, left ear (03/22/23) Muscle weakness (generalized) (03/22/23) Difficulty in walking, not elsewhere classified (03/22/23) Unsteadiness on feet (03/22/23) Abnormal posture (03/22/23) Physical Therapy Treatment Note PT-OP-A Visit Information Start: 03/13/23 07:53 Freq: Status: Active Protocol: Document 03/22/23 15:24 [facility] (Rec: 03/22/23 15:33 [facility] [id number]) Out-Patient Physical Therapy Visit Information Visit Information Visit Type Treatment Note Visit Note 06/23 Visit Start Time 13:35 Visit Stop Time 14:16 Total Visit Minutes 41 Visit Number 2 Number of BONE PULLER Visits 0 PT-OP-B Current Condition Start: 03/13/23 07:53 Freq: Status: Active Protocol: Document 03/14/23 09:02 [facility] (Rec: 03/14/23 11:12 [facility] [id number]) Current Condition History of Current Condition History of Current Condition Pt reports her main issue is her balance. Pt had nausea/ vomitting/dizziness/FRAUSTO starting end of May and was diagnosed w/vestibular neuritis. She feels like when she turns her head, it feels like her eyes and head are not in sync. She doesn't feel secure anymore. This has just been since May. Pt had COVID last summer. She saw a machine sand mixer and yard switch operator etc. She is having some symtoms re: this. She used to go for very long walks like [place] and couldn't do it anymore. She got too short of breath. They did tons of tests . She was seeing Jessica Levine PT in [place] and transfering here. She has been going for a few months. She has been focusing on the balance and her hip issue. She has been doing some eye exercsies and some head/neck work. 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 She still goes for a walk and uses a cane now and goes about 2 miles and it is all flat 3x week and doesn't walk alone. They are better than they were in May but still frequently. She used to wake up with them but now they are just random. Most of the time they come/go during the day. Typically about every day that last under an hr and sometimes gets more than 1 a day. Notes FRAUSTO are in frontal region and orbital. When first started, they were pretty constant. Hip pain is more mild and it comes/goes and has been present for the past 1 year. It bothers her when walking longer and turning over in bed . Pain in ant lat hip and sometimes shoots down lat thigh. She does live alone and wears a life alert all the time. Pt has been so weak and feels really weak and occ in the shower needs to sit down d /t feeling winded or weak/ tired in legs) Treatment Goals Patient/Caregiver Goals Have better balance, not feel so insecure about doing physical activities herself. Feel more secure about taking care of pouch making machine operator (get in/out of shower(walk in), change a lightbulb etc) PT-OP-C Subjective Start: 03/13/23 07:53 Freq: Status: Active Protocol: Document 03/22/23 15:24 [facility] (Rec: 03/22/23 15:33 [facility] [id number]) OP-PT Subjective Patient Comments Patient Comments Pt reports she brought her exercises from her other PT PT-OP-E Functional Tests Start: 03/14/23 13:42 Freq: Status: Active Protocol: Document 03/14/23 09:02 [facility] (Rec: 03/14/23 13:48 [facility] [id number]) Functional Tests 30 Second Sit to Stand Test Score 7 Comments pt felt dizzy shortly after; silver chair Dynamic Gait Index (DGI) Score 11/24 Five Times Sit to Stand Test Score 20 sec Comments silver chair Functional Gait Assessment Score 15/30 PT-OP-F Manual Assessment Start: 03/13/23 07:53 Freq: Status: Active Protocol: Document 03/14/23 09:02 [facility] (Rec: 03/14/23 13:50 [facility] [id number]) Manual Assessments Other Manual Assessments Other Manual Assessments 162/78 BP tested after sit to stand test PT-OP-G Mobility & Gait Start: 03/13/23 07:53 Freq: Status: Active Protocol: Document 03/14/23 09:02 [facility] (Rec: 03/14/23 11:12 [facility] [id number]) OP Gait Assessment Comments Gait Comments Pt has dec stance time on LLE and keeps arms to side for balance, lat leaning w/gait PT-OP-K Range of Motion Start: 03/13/23 07:53 Freq: Status: Active Protocol: Document 03/14/23 09:02 [facility] (Rec: 03/14/23 11:12 [facility] [id number]) Cervical Spine Range of Motion Cervical Spine Active Percentage Flexion 60 Extension 40 Rotation Left 50 Rotation Right 50 Lateral Flexion Left 40 Lateral Flexion Right 25 ROM Limitations Soft Tissue Tightness,Pain PT-OP-Q Treatments Start: 03/13/23 07:53 Freq: Status: Active Protocol: Document 03/22/23 15:24 [facility] (Rec: 03/22/23 15:33 [facility] [id number]) Manual Therapy Treatment Joint Mobilizations hip Comments L Lat gapping FM and inf glide FM; attemped free the ball for ER but uncomfortable so stopped Neuro Re-Education Treatment Balance Activities SLS Details toe taps to step Reps/Duration 10 B foam Comments WBOS: EO, EC, head turn trials B Other Activities PNF Reps/Duration 17 min Comments ant elevation facilitation through LE w/traction w/3 prolonged holds B PT-OP-T Assessment and Plan Start: 03/13/23 07:53 Freq: Status: Active Protocol: Document 03/22/23 15:24 [facility] (Rec: 03/22/23 15:33 [facility] [id number]) Physical Therapy Assessment Goals activities Side Door Worker Goal (LTG) Pt will report greater ease of pouch making machine operator/ADLs like showering w/feeling of inc stability and less c/o weakness and fatigue LTG Duration 06/06/23 pain Short Term Goal (STG) Pt will report no hip pain w/ walk, allowing her to start to inc distance. STG Duration 05/12/23 Group Home Goal (LTG) Pt will report no more than 1 FRAUSTO a week. LTG Duration 06/06/23 strength Impairment 5x sit to stand: 20 sec; 30 sec sit to stand: 7 Short Term Goal (STG) Pt will improve 5x sit to stand to less than 15 sec to show improved LE strength and dec risk for falls. STG Duration 05/06/24 Side Door Worker Goal (LTG) Pt will improve 30 sec sit to stand to at least 10 w/o dizziness after as appropriate w/age related norms in order to show improved LE strength/ activity tolerance and dec risk for falls. LTG Duration 06/06/23 balance Impairment DGI: 04/06 FGA: Short Term Goal (STG) Pt will improve DGI to at least 15/24 to show improved balance and dec risk for falls . STG Duration 04/24/23 Side Door Worker Goal (LTG) Pt will improve DGI to at least 20/24 and FGA to at least to show improved balance and dec risk for falls . LTG Duration 06/06/23 Assessment Summary Assessment Pt had good set of exercises from other PT that was scanned to chart (wt shifts, tandem balance, eye moving, SLS, sit to stands). She was challenged by PNF with dec connection of LEs to trunk that slowly improve w/facilitation. She had much improved gait after manual with improved stance time on LLE. Physical Therapy Plan Frequency and Duration Frequency of Treatment 1-2x/wk Duration of treatment (weeks) 12 Plan of Care Start Date 03/14/23 Plan of Care End Date 06/06/23 Next Visit Focus/Plan Next Note Type Treatment Note Next Visit Plan vestibular assessment, PNF for connection of LEs/Ues to trunk, cont to work L hip dysfunction manually and imrpove L hip mobility and strength, work on neck and cranium
--- NOTE | 2023-03-27 14:09 | PT.OTN ---
Current Diagnoses Other disorders of vestibular function, left ear (03/27/23) Muscle weakness (generalized) (03/27/23) Difficulty in walking, not elsewhere classified (03/27/23) Unsteadiness on feet (03/27/23) Abnormal posture (03/27/23) Physical Therapy Treatment Note PT-OP-A Visit Information Start: 03/13/23 07:53 Freq: Status: Active Protocol: Document 03/27/23 10:34 DCW (Rec: 03/27/23 14:07 DCW [id number]) Out-Patient Physical Therapy Visit Information Visit Information Visit Type Progress Note Visit Note 05/23 Visit Start Time 10:34 Visit Stop Time 11:15 Total Visit Minutes 41 Visit Number 3 Number of MANAGER INTEGRITY Visits 0 PT-OP-B Current Condition Start: 03/13/23 07:53 Freq: Status: Active Protocol: Document 03/14/23 09:02 [facility] (Rec: 03/14/23 11:12 [facility] [id number]) Current Condition History of Current Condition History of Current Condition Pt reports her main issue is her balance. Pt had nausea/ vomitting/dizziness/FRAUSTO starting end of May and was diagnosed w/vestibular neuritis. She feels like when she turns her head, it feels like her eyes and head are not in sync. She doesn't feel secure anymore. This has just been since May. Pt had COVID last summer. She saw a clinical research technician and screen writer etc. She is having some symtoms re: this. She used to go for very long walks like [place] and couldn't do it anymore. She got too short of breath. They did tons of tests . She was seeing [facility] PT in [place] and transfering here. She has been going for a few months. She has been focusing on the balance and her hip issue. She has been doing some eye exercsies and some head/neck work. 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 She still goes for a walk and uses a cane now and goes about 2 miles and it is all flat 3x week and doesn't walk alone. They are better than they were in May but still frequently. She used to wake up with them but now they are just random. Most of the time they come/go during the day. Typically about every day that last under an hr and sometimes gets more than 1 a day. Notes FRAUSTO are in frontal region and orbital. When first started, they were pretty constant. Hip pain is more mild and it comes/goes and has been present for the past 1 year. It bothers her when walking longer and turning over in bed . Pain in ant lat hip and sometimes shoots down lat thigh. She does live alone and wears a life alert all the time. Pt has been so weak and feels really weak and occ in the shower needs to sit down d /t feeling winded or weak/ tired in legs) Treatment Goals Patient/Caregiver Goals Have better balance, not feel so insecure about doing physical activities herself. Feel more secure about taking care of automatic blocker (get in/out of shower(walk in), change a lightbulb etc) PT-OP-C Subjective Start: 03/13/23 07:53 Freq: Status: Active Protocol: Document 03/27/23 10:34 DCW (Rec: 03/27/23 14:07 DCW [id number]) OP-PT Subjective Patient Comments Patient Comments Pt notes she has been experiencing vestibular/ balance symptoms since May . Has already undergone a VNG and diagnosed with left vestibular neuritis. During her acute phase, couldn't move without vomiting, lasted a few days. Acute symptoms slowly waned, and pt attended PT at a different clinic to focus on balance. Admits that it was never rotational vertigo, just dizzy in my head. Denies changes in hearing. Brain MRI at time symptoms began unremarkable for cause of dizziness. PT-OP-E Functional Tests Start: 03/14/23 13:42 Freq: Status: Active Protocol: Document 03/14/23 09:02 [facility] (Rec: 03/14/23 13:48 [facility] [id number]) Functional Tests 30 Second Sit to Stand Test Score 7 Comments pt felt dizzy shortly after; silver chair Dynamic Gait Index (DGI) Score 04/06 Five Times Sit to Stand Test Score 20 sec Comments silver chair Functional Gait Assessment Score 15/30 PT-OP-F Manual Assessment Start: 03/13/23 07:53 Freq: Status: Active Protocol: Document 03/14/23 09:02 [facility] (Rec: 03/14/23 13:50 [facility] [id number]) Manual Assessments Other Manual Assessments Other Manual Assessments 162/78 BP tested after sit to stand test PT-OP-G Mobility & Gait Start: 03/13/23 07:53 Freq: Status: Active Protocol: Document 03/14/23 09:02 [facility] (Rec: 03/14/23 11:12 [facility] [id number]) OP Gait Assessment Comments Gait Comments Pt has dec stance time on LLE and keeps arms to side for balance, lat leaning w/gait PT-OP-K Range of Motion Start: 03/13/23 07:53 Freq: Status: Active Protocol: Document 03/14/23 09:02 [facility] (Rec: 03/14/23 11:12 [facility] [id number]) Cervical Spine Range of Motion Cervical Spine Active Percentage Flexion 60 Extension 40 Rotation Left 50 Rotation Right 50 Lateral Flexion Left 40 Lateral Flexion Right 25 ROM Limitations Soft Tissue Tightness,Pain PT-OP-O Vestibular Start: 03/27/23 10:32 Freq: Status: Active Protocol: Document 03/27/23 10:34 DCW (Rec: 03/27/23 14:07 DCW [id number]) Vestibular Assessment Auditory Tests Mittal Test Within normal limits Air Conduction Results Left Greater Visual Testing Smooth Pursuits Horizontal Difficulty following target Smooth Pursuits Vertical Difficulty following target Saccades Horizontal Increased symptoms Heave Test Positive L Thrust Head Positive L Convergence Test 43 cm DVA (Line Degradation) 5 Spontaneous Nystagmus Negative Vestibular Function Tests Fukuda Test Impaired Comments Vestibular Comments Fukuda difficult to grade, as pt was so unsteady, she was unable to perform full marching motion, and opened her eyes multiple times. PT-OP-Q Treatments Start: 03/13/23 07:53 Freq: Status: Active Protocol: Document 03/27/23 10:34 DCW (Rec: 03/27/23 14:07 DCW [id number]) Neuro Re-Education Treatment Vestibular Rehabilitation X1 Viewing Details Static target with head turns Distance From Target Arm's length Speed as tolerated Position seated VOR Retraining Details Target and head moving together Distance From Target Arm's length Speed as tolerated Position seated PT-OP-T Assessment and Plan Start: 03/13/23 07:53 Freq: Status: Active Protocol: Document 03/27/23 10:34 DCW (Rec: 03/27/23 14:07 DCW [id number]) Physical Therapy Assessment Goals DVA Impairment 5 line degradation during DVA testing Mcfp Goal (LTG) Pt to demonstrate improved dynamic visual acuity by scoring three or few line degradation during DVA testing LTG Duration 06/06/23 activities Tire Rebuilder Goal (LTG) Pt will report greater ease of automatic blocker/ADLs like showering w/feeling of inc stability and less c/o weakness and fatigue LTG Duration 06/06/23 pain Short Term Goal (STG) Pt will report no hip pain w/ walk, allowing her to start to inc distance. STG Duration 05/12/23 Tire Rebuilder Goal (LTG) Pt will report no more than 1 FRAUSTO a week. LTG Duration 06/06/23 strength Impairment 5x sit to stand: 20 sec; 30 sec sit to stand: 7 Short Term Goal (STG) Pt will improve 5x sit to stand to less than 15 sec to show improved LE strength and dec risk for falls. STG Duration 05/06/24 Mcfp Goal (LTG) Pt will improve 30 sec sit to stand to at least 10 w/o dizziness after as appropriate w/age related norms in order to show improved LE strength/ activity tolerance and dec risk for falls. LTG Duration 06/06/23 balance Impairment DGI: 04/06 FGA: 15/30 Short Term Goal (STG) Pt will improve DGI to at least 15/24 to show improved balance and dec risk for falls . STG Duration 04/24/23 Mcfp Goal (LTG) Pt will improve DGI to at least 20/24 and FGA to at least 22/30 to show improved balance and dec risk for falls . LTG Duration 06/06/23 Assessment Summary Assessment Vestibular testing performed today, pt largely presents with signs and symptoms consistent with left unilateral vestibular weakness . Based on subjective reports of initial acute phase, most likely vestibular neuritis. Positive left-sided thrust and heave tests and 5 line DVA degradation both suggestive of unilateral hypofunction. Started pt with vestibular HEP , however pt symptoms quickly increased after testing with both VOR and X1 exercises. Advised pt to continue prior HEP with addition of only these two vestibular exercises as tolerated, with effort to not increase symptoms too much . Should continue to progress with strengthening and increasing activity tolerance, as well as addition of new vestibular exercises, including habituation and adaptation exercises, oculomotor training, and static/dynamic balance challenges. Physical Therapy Plan Frequency and Duration Frequency of Treatment 1-2x/wk Duration of treatment (weeks) 12 Plan of Care Start Date 03/27/23 Plan of Care End Date 06/06/23 Therapeutic Interventions Therapeutic Interventions Balance Training,Canalithic Repositioning,Coordination Training,Gait Training,Home Exercise Program,Joint Mobilizations,Manual Therapy, Neuromuscular Re-education, Orthotic/Prosthetic Management ,Patient/Caregiver Education, Self-Care/Home Management,Soft Tissue Mobilization,Taping, Therapeutic Activities, Therapeutic Exercises, Vestibular Rehabilitation Modalities Cold Pack/Ice Massage,Hot Packs Next Visit Focus/Plan Next Note Type Treatment Note Next Visit Plan check other PT exercises, look at L hip dysfucntion and manually improve position, work on neck and cranium Vestibular rehabilitation exercises as tolerated
--- NOTE | 2023-03-27 14:09 | PT.OPPOC ---
Physical, Occupational & Speech Therapy At [facility] Current Diagnoses Other disorders of vestibular function, left ear (03/27/23) Muscle weakness (generalized) (03/27/23) Difficulty in walking, not elsewhere classified (03/27/23) Unsteadiness on feet (03/27/23) Abnormal posture (03/27/23) Visit Care Team Role Provider Type Irasema Kemp DO Family Provider Physician Primary Care Provider Specialty: Medical Address: [address] [place] [address], [address] [place] [address], [id number] Email: [email or web address] Janes Milligan MD Attending Provider Physician Referring Provider Specialty: Ear, Nose, Throat Address: [address] [place] [address], [id number] Email: [email or web address] Plan Of Care PT-OP-T Assessment and Plan Start: 03/13/23 07:53 Freq: Status: Active Protocol: Document 03/27/23 10:34 DCW (Rec: 03/27/23 14:07 DCW [id number]) Physical Therapy Assessment Goals DVA Impairment 5 line degradation during DVA testing Group Home Goal (LTG) Pt to demonstrate improved dynamic visual acuity by scoring three or few line degradation during DVA testing LTG Duration 06/06/23 activities Group Home Goal (LTG) Pt will report greater ease of loss prevention leader/ADLs like showering w/feeling of inc stability and less c/o weakness and fatigue LTG Duration 06/06/23 pain Short Term Goal (STG) Pt will report no hip pain w/ walk, allowing her to start to inc distance. STG Duration 05/12/23 Group Home Goal (LTG) Pt will report no more than 1 FRAUSTO a week. LTG Duration 06/06/23 strength Impairment 5x sit to stand: 20 sec; 30 sec sit to stand: 7 Short Term Goal (STG) Pt will improve 5x sit to stand to less than 15 sec to show improved LE strength and dec risk for falls. STG Duration 05/06/24 Kelp Cutter Goal (LTG) Pt will improve 30 sec sit to stand to at least 10 w/o dizziness after as appropriate w/age related norms in order to show improved LE strength/ activity tolerance and dec risk for falls. LTG Duration 06/06/23 balance Impairment DGI: 04/06 FGA: Short Term Goal (STG) Pt will improve DGI to at least 15 to show improved balance and dec risk for falls . STG Duration 04/24/23 Kelp Cutter Goal (LTG) Pt will improve DGI to at least 20/ and FGA to at least to show improved balance and dec risk for falls . LTG Duration 06/06/23 Assessment Summary Assessment Vestibular testing performed today, pt largely presents with signs and symptoms consistent with left unilateral vestibular weakness . Based on subjective reports of initial acute phase, most likely vestibular neuritis. Positive left-sided thrust and heave tests and 5 line DVA degradation both suggestive of unilateral hypofunction. Started pt with vestibular HEP , however pt symptoms quickly increased after testing with both VOR and X1 exercises. Advised pt to continue prior HEP with addition of only these two vestibular exercises as tolerated, with effort to not increase symptoms too much . Should continue to progress with strengthening and increasing activity tolerance, as well as addition of new vestibular exercises, including habituation and adaptation exercises, oculomotor training, and static/dynamic balance challenges. Physical Therapy Plan Frequency and Duration Frequency of Treatment 1-2x/wk Duration of treatment (weeks) 12 Plan of Care Start Date 03/27/23 Plan of Care End Date 06/06/23 Therapeutic Interventions Therapeutic Interventions Balance Training,Canalithic Repositioning,Coordination Training,Gait Training,Home Exercise Program,Joint Mobilizations,Manual Therapy, Neuromuscular Re-education, Orthotic/Prosthetic Management ,Patient/Caregiver Education, Self-Care/Home Management,Soft Tissue Mobilization,Taping, Therapeutic Activities, Therapeutic Exercises, Vestibular Rehabilitation Modalities Cold Pack/Ice Massage,Hot Packs Next Visit Focus/Plan Next Note Type Treatment Note Next Visit Plan check other PT exercises, look at L hip dysfucntion and manually improve position, work on neck and cranium Vestibular rehabilitation exercises as tolerated Plan of Care Dates Plan of Care Start Date 03/27/23 Plan of Care End Date 06/06/23 Electronically Signed by: Renzo Martin, PT 03/27/23 [id number] If you are in agreement with this Plan of Care, please return a signed and dated copy. I have reviewed this Plan of Care and certify that the skilled therapy services above are required to meet the patient?s needs. Physician Signature Date Printed Name and Credentials Clinical Instructor Signature Printed Name and Credentials
--- NOTE | 2023-04-02 16:54 | PT.OTN ---
Current Diagnoses Other disorders of vestibular function, left ear (04/02/23) Muscle weakness (generalized) (04/02/23) Difficulty in walking, not elsewhere classified (04/02/23) Unsteadiness on feet (04/02/23) Abnormal posture (04/02/23) Physical Therapy Treatment Note PT-OP-A Visit Information Start: 03/13/23 07:53 Freq: Status: Active Protocol: Document 04/02/23 14:35 [facility] (Rec: 04/02/23 16:53 [facility] [id number]) Out-Patient Physical Therapy Visit Information Visit Information Visit Type Treatment Note Visit Note 06/23 Visit Start Time 14:35 Visit Stop Time 15:17 Total Visit Minutes 42 Visit Number 4 Number of BRIDAL CONSULTANT Visits 0 PT-OP-B Current Condition Start: 03/13/23 07:53 Freq: Status: Active Protocol: Document 03/14/23 09:02 [facility] (Rec: 03/14/23 11:12 [facility] [id number]) Current Condition History of Current Condition History of Current Condition Pt reports her main issue is her balance. Pt had nausea/ vomitting/dizziness/FRAUSTO starting end of May and was diagnosed w/vestibular neuritis. She feels like when she turns her head, it feels like her eyes and head are not in sync. She doesn't feel secure anymore. This has just been since May. Pt had COVID last summer. She saw a asphalt roller operator and pulp bleacher etc. She is having some symtoms re: this. She used to go for very long walks like [employer] and couldn't do it anymore. She got too short of breath. They did tons of tests . She was seeing [facility]ine PT in [place] and transfering here. She has been going for a few months. She has been focusing on the balance and her hip issue. She has been doing some eye exercsies and some head/neck work. 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 She still goes for a walk and uses a cane now and goes about 2 miles and it is all flat 3x week and doesn't walk alone. They are better than they were in May but still frequently. She used to wake up with them but now they are just random. Most of the time they come/go during the day. Typically about every day that last under an hr and sometimes gets more than 1 a day. Notes FRAUSTO are in frontal region and orbital. When first started, they were pretty constant. Hip pain is more mild and it comes/goes and has been present for the past 1 year. It bothers her when walking longer and turning over in bed . Pain in ant lat hip and sometimes shoots down lat thigh. She does live alone and wears a life alert all the time. Pt has been so weak and feels really weak and occ in the shower needs to sit down d /t feeling winded or weak/ tired in legs) Treatment Goals Patient/Caregiver Goals Have better balance, not feel so insecure about doing physical activities herself. Feel more secure about taking care of dean for student affairs (get in/out of shower(walk in), change a lightbulb etc) PT-OP-C Subjective Start: 03/13/23 07:53 Freq: Status: Active Protocol: Document 04/02/23 14:35 [facility] (Rec: 04/02/23 16:53 [facility] [id number]) OP-PT Subjective Patient Comments Patient Comments Pt reports inc in symptoms a little after doing her new vestibular exercises. notes sat, she felt disoriented a little after waking up where it was hard to tell the date, etc. Notes she had a nurse friend check her and didn't find any concern for stroke. She didn't get checked out and everything i s pretty much resolved today. notes she feels tired today PT-OP-E Functional Tests Start: 03/14/23 13:42 Freq: Status: Active Protocol: Document 03/14/23 09:02 [facility] (Rec: 03/14/23 13:48 [facility] [id number]) Functional Tests 30 Second Sit to Stand Test Score 7 Comments pt felt dizzy shortly after; silver chair Dynamic Gait Index (DGI) Score 11/24 Five Times Sit to Stand Test Score 20 sec Comments silver chair Functional Gait Assessment Score 15/30 PT-OP-F Manual Assessment Start: 03/13/23 07:53 Freq: Status: Active Protocol: Document 03/14/23 09:02 [facility] (Rec: 03/14/23 13:50 [facility] [id number]) Manual Assessments Other Manual Assessments Other Manual Assessments 162/78 BP tested after sit to stand test PT-OP-G Mobility & Gait Start: 03/13/23 07:53 Freq: Status: Active Protocol: Document 03/14/23 09:02 [facility] (Rec: 03/14/23 11:12 [facility] [id number]) OP Gait Assessment Comments Gait Comments Pt has dec stance time on LLE and keeps arms to side for balance, lat leaning w/gait PT-OP-K Range of Motion Start: 03/13/23 07:53 Freq: Status: Active Protocol: Document 03/14/23 09:02 [facility] (Rec: 03/14/23 11:12 [facility] [id number]) Cervical Spine Range of Motion Cervical Spine Active Percentage Flexion 60 Extension 40 Rotation Left 50 Rotation Right 50 Lateral Flexion Left 40 Lateral Flexion Right 25 ROM Limitations Soft Tissue Tightness,Pain PT-OP-O Vestibular Start: 03/27/23 10:32 Freq: Status: Active Protocol: Document 03/27/23 10:34 DCW (Rec: 03/27/23 14:07 DCW [id number]) Vestibular Assessment Auditory Tests Mittal Test Within normal limits Air Conduction Results Left Greater Visual Testing Smooth Pursuits Horizontal Difficulty following target Smooth Pursuits Vertical Difficulty following target Saccades Horizontal Increased symptoms Heave Test Positive L Thrust Head Positive L Convergence Test 43 cm DVA (Line Degradation) 5 Spontaneous Nystagmus Negative Vestibular Function Tests Fukuda Test Impaired Comments Vestibular Comments Fukuda difficult to grade, as pt was so unsteady, she was unable to perform full marching motion, and opened her eyes multiple times. PT-OP-Q Treatments Start: 03/13/23 07:53 Freq: Status: Active Protocol: Document 04/02/23 14:35 [facility] (Rec: 04/02/23 16:53 [facility] [id number]) Therapeutic Exercises Standing Exercises hip hike Side bilateral Equipment Used step w/rail Reps/Minutes 10 Manual Therapy Treatment Soft Tissue Mobilization QL Body Location L Mobilization Type Rolling Intensity/Depth Moderate Body Position Sidelying Comments w/ post dep Joint Mobilizations innominate Comments L caudal and add FM Neuro Re-Education Treatment Other Activities PNF Details L pelvis Reps/Duration 14 min Comments 1. ant eleavtion and post dep rhythmic initiation w/ prolonged holds progressed to COI Self-Care/Home Management Treatment Education Other Education 159/87; HR 64; O2 98%(3 min) 12 min: edu to go to ER in the future if this happens again and to call or message MD right after PT appt today to inform of symptoms. Edu this could be signs of infection or TIA or other major medical problems taht need treatment. Edu to check BP daily and monitor as BP is high today. edu to only do 1st vestibular exercise on list PT-OP-T Assessment and Plan Start: 03/13/23 07:53 Freq: Status: Active Protocol: Document 04/02/23 14:35 [facility] (Rec: 04/02/23 16:53 [facility] [id number]) Physical Therapy Assessment Goals DVA Impairment 5 line degradation during DVA testing Prison Goal (LTG) Pt to demonstrate improved dynamic visual acuity by scoring three or few line degradation during DVA testing LTG Duration 06/06/23 activities Prison Goal (LTG) Pt will report greater ease of dean for student affairs/ADLs like showering w/feeling of inc stability and less c/o weakness and fatigue LTG Duration 06/06/23 pain Short Term Goal (STG) Pt will report no hip pain w/ walk, allowing her to start to inc distance. STG Duration 05/12/23 Prison Goal (LTG) Pt will report no more than 1 FRAUSTO a week. LTG Duration 06/06/23 strength Impairment 5x sit to stand: 20 sec; 30 sec sit to stand: 7 Short Term Goal (STG) Pt will improve 5x sit to stand to less than 15 sec to show improved LE strength and dec risk for falls. STG Duration 05/06/24 Track Layer Goal (LTG) Pt will improve 30 sec sit to stand to at least 10 w/o dizziness after as appropriate w/age related norms in order to show improved LE strength/ activity tolerance and dec risk for falls. LTG Duration 06/06/23 balance Impairment DGI: 04/06 FGA: Short Term Goal (STG) Pt will improve DGI to at least 15/24 to show improved balance and dec risk for falls . STG Duration 04/24/23 Track Layer Goal (LTG) Pt will improve DGI to at least 20/24 and FGA to at least to show improved balance and dec risk for falls . LTG Duration 06/06/23 Assessment Summary Assessment Pt verbalized understandign w/ education and plans to call when she gets home. Pt did well with PNF but required rhythmic initiation to get pelvis/trunk connection. She had improved gait after manual and PNF Physical Therapy Plan Frequency and Duration Frequency of Treatment 1-2x/wk Duration of treatment (weeks) 12 Plan of Care Start Date 03/27/23 Plan of Care End Date 06/06/23 Next Visit Focus/Plan Next Note Type Treatment Note Next Visit Plan cont to advance vestibular rehab as tolerated; advance balance and LE strengthening as tolerated. Improve pelvis alignment to improve pt comfort w/wt acceptance w/gait
--- NOTE | 2023-04-11 12:01 | PT.OTN ---
Current Diagnoses Other disorders of vestibular function, left ear (04/11/23) Muscle weakness (generalized) (04/11/23) Difficulty in walking, not elsewhere classified (04/11/23) Unsteadiness on feet (04/11/23) Abnormal posture (04/11/23) Physical Therapy Treatment Note PT-OP-A Visit Information Start: 03/13/23 07:53 Freq: Status: Active Protocol: Document 04/11/23 11:15 DCW (Rec: 04/11/23 12:00 DCW [id number]) Out-Patient Physical Therapy Visit Information Visit Information Visit Type Treatment Note Visit Note 07/21 Visit Start Time 11:15 Visit Stop Time 12:00 Total Visit Minutes 45 Visit Number 5 Number of ARMOR OFFICER Visits 0 PT-OP-B Current Condition Start: 03/13/23 07:53 Freq: Status: Active Protocol: Document 03/14/23 09:02 [facility] (Rec: 03/14/23 11:12 [facility] [id number]) Current Condition History of Current Condition History of Current Condition Pt reports her main issue is her balance. Pt had nausea/ vomitting/dizziness/FRAUSTO starting end of May and was diagnosed w/vestibular neuritis. She feels like when she turns her head, it feels like her eyes and head are not in sync. She doesn't feel secure anymore. This has just been since May. Pt had COVID last summer. She saw a cardiovascular disease specialist and pre press operator etc. She is having some symtoms re: this. She used to go for very long walks like [facility] and couldn't do it anymore. She got too short of breath. They did tons of tests . She was seeing Jessica [facility]ine PT in [place] and transfering here. She has been going for a few months. She has been focusing on the balance and her hip issue. She has been doing some eye exercsies and some head/neck work. 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 She still goes for a walk and uses a cane now and goes about 2 miles and it is all flat 3x week and doesn't walk alone. They are better than they were in May but still frequently. She used to wake up with them but now they are just random. Most of the time they come/go during the day. Typically about every day that last under an hr and sometimes gets more than 1 a day. Notes FRAUSTO are in frontal region and orbital. When first started, they were pretty constant. Hip pain is more mild and it comes/goes and has been present for the past 1 year. It bothers her when walking longer and turning over in bed . Pain in ant lat hip and sometimes shoots down lat thigh. She does live alone and wears a life alert all the time. Pt has been so weak and feels really weak and occ in the shower needs to sit down d /t feeling winded or weak/ tired in legs) Treatment Goals Patient/Caregiver Goals Have better balance, not feel so insecure about doing physical activities herself. Feel more secure about taking care of bulb brander (get in/out of shower(walk in), change a lightbulb etc) PT-OP-C Subjective Start: 03/13/23 07:53 Freq: Status: Active Protocol: Document 04/11/23 11:15 DCW (Rec: 04/11/23 12:00 DCW [id number]) OP-PT Subjective Patient Comments Patient Comments After decreasing vestibular HEP to one exercise, I feel like I'm not back to baseline and I don't necessarily expect to be. PT-OP-E Functional Tests Start: 03/14/23 13:42 Freq: Status: Active Protocol: Document 03/14/23 09:02 [facility] (Rec: 03/14/23 13:48 [facility] [id number]) Functional Tests 30 Second Sit to Stand Test Score 7 Comments pt felt dizzy shortly after; silver chair Dynamic Gait Index (DGI) Score 11/24 Five Times Sit to Stand Test Score 20 sec Comments silver chair Functional Gait Assessment Score 15/30 PT-OP-F Manual Assessment Start: 03/13/23 07:53 Freq: Status: Active Protocol: Document 03/14/23 09:02 [facility] (Rec: 03/14/23 13:50 [facility] [id number]) Manual Assessments Other Manual Assessments Other Manual Assessments 162/78 BP tested after sit to stand test PT-OP-G Mobility & Gait Start: 03/13/23 07:53 Freq: Status: Active Protocol: Document 03/14/23 09:02 [facility] (Rec: 03/14/23 11:12 [facility] [id number]) OP Gait Assessment Comments Gait Comments Pt has dec stance time on LLE and keeps arms to side for balance, lat leaning w/gait PT-OP-K Range of Motion Start: 03/13/23 07:53 Freq: Status: Active Protocol: Document 03/14/23 09:02 [facility] (Rec: 03/14/23 11:12 [facility] [id number]) Cervical Spine Range of Motion Cervical Spine Active Percentage Flexion 60 Extension 40 Rotation Left 50 Rotation Right 50 Lateral Flexion Left 40 Lateral Flexion Right 25 ROM Limitations Soft Tissue Tightness,Pain PT-OP-O Vestibular Start: 03/27/23 10:32 Freq: Status: Active Protocol: Document 03/27/23 10:34 DCW (Rec: 03/27/23 14:07 DCW [id number]) Vestibular Assessment Auditory Tests Mittal Test Within normal limits Air Conduction Results Left Greater Visual Testing Smooth Pursuits Horizontal Difficulty following target Smooth Pursuits Vertical Difficulty following target Saccades Horizontal Increased symptoms Heave Test Positive L Thrust Head Positive L Convergence Test 43 cm DVA (Line Degradation) 5 Spontaneous Nystagmus Negative Vestibular Function Tests Fukuda Test Impaired Comments Vestibular Comments Fukuda difficult to grade, as pt was so unsteady, she was unable to perform full marching motion, and opened her eyes multiple times. PT-OP-Q Treatments Start: 03/13/23 07:53 Freq: Status: Active Protocol: Document 04/11/23 11:15 DCW (Rec: 04/11/23 12:00 DCW [id number]) Neuro Re-Education Treatment Balance Activities Tandem Stance Details Tandem Stance Equipment // bars foam Surface Blue Foam Comments X1 Vestibular Rehabilitation Visual Conflict Details NBOS Background [place] Print board X2 Viewing Details Target and head moving in opposite direction Distance From Target Arm's length Speed as tolerated Position seated X1 Viewing Details Static target with head turns Distance From Target Arm's length Speed as tolerated Position seated VOR Retraining Details Target and head moving together Distance From Target Arm's length Speed as tolerated Position seated Self-Care/Home Management Treatment Education Other Education 158/86 PT-OP-T Assessment and Plan Start: 03/13/23 07:53 Freq: Status: Active Protocol: Document 04/11/23 11:15 DCW (Rec: 04/11/23 12:00 DCW [id number]) Physical Therapy Assessment Goals DVA Impairment 5 line degradation during DVA testing Snf Goal (LTG) Pt to demonstrate improved dynamic visual acuity by scoring three or few line degradation during DVA testing LTG Duration 06/06/23 activities Tour Driver Goal (LTG) Pt will report greater ease of bulb brander/ADLs like showering w/feeling of inc stability and less c/o weakness and fatigue LTG Duration 06/06/23 pain Short Term Goal (STG) Pt will report no hip pain w/ walk, allowing her to start to inc distance. STG Duration 05/12/23 Snf Goal (LTG) Pt will report no more than 1 FRAUSTO a week. LTG Duration 06/06/23 strength Impairment 5x sit to stand: 20 sec; 30 sec sit to stand: 7 Short Term Goal (STG) Pt will improve 5x sit to stand to less than 15 sec to show improved LE strength and dec risk for falls. STG Duration 05/06/24 Snf Goal (LTG) Pt will improve 30 sec sit to stand to at least 10 w/o dizziness after as appropriate w/age related norms in order to show improved LE strength/ activity tolerance and dec risk for falls. LTG Duration 06/06/23 balance Impairment DGI: 04/06 FGA: 15/30 Short Term Goal (STG) Pt will improve DGI to at least 15/24 to show improved balance and dec risk for falls . STG Duration 04/24/23 Snf Goal (LTG) Pt will improve DGI to at least 20/24 and FGA to at least 22/30 to show improved balance and dec risk for falls . LTG Duration 06/06/23 Assessment Summary Assessment Pt exhibited improved tolerance to vestibular challenges. Added X2 to HEP as tolerated. Pt did note increased symptoms of unsteadiness and nausea with visual conflict. Physical Therapy Plan Frequency and Duration Frequency of Treatment 1-2x/wk Duration of treatment (weeks) 12 Plan of Care Start Date 03/27/23 Plan of Care End Date 06/06/23 Next Visit Focus/Plan Next Note Type Treatment Note Next Visit Plan cont to advance vestibular rehab as tolerated; advance balance and LE strengthening as tolerated. Improve pelvis alignment to improve pt comfort w/wt acceptance w/gait
--- NOTE | 2023-04-18 12:02 | PT.OTN ---
Current Diagnoses Other disorders of vestibular function, left ear (04/18/23) Muscle weakness (generalized) (04/18/23) Difficulty in walking, not elsewhere classified (04/18/23) Unsteadiness on feet (04/18/23) Abnormal posture (04/18/23) Physical Therapy Treatment Note PT-OP-A Visit Information Start: 03/13/23 07:53 Freq: Status: Active Protocol: Document 04/18/23 11:16 DCW (Rec: 04/18/23 12:02 DC [id number]) Out-Patient Physical Therapy Visit Information Visit Information Visit Type Treatment Note Visit Note 08/21 Visit Start Time 11:16 Visit Stop Time 12:00 Total Visit Minutes 44 Visit Number 6 Number of WRAPPER STRIPPER Visits 0 PT-OP-B Current Condition Start: 03/13/23 07:53 Freq: Status: Active Protocol: Document 03/14/23 09:02 [facility] (Rec: 03/14/23 11:12 [facility] [id number]) Current Condition History of Current Condition History of Current Condition Pt reports her main issue is her balance. Pt had nausea/ vomitting/dizziness/FRAUSTO starting end of May and was diagnosed w/vestibular neuritis. She feels like when she turns her head, it feels like her eyes and head are not in sync. She doesn't feel secure anymore. This has just been since May. Pt had COVID last summer. She saw a area plant manager and trust and estates paralegal etc. She is having some symtoms re: this. She used to go for very long walks like [employer] and couldn't do it anymore. She got too short of breath. They did tons of tests . She was seeing Jessica Levine PT in [place] and transfering here. She has been going for a few months. She has been focusing on the balance and her hip issue. She has been doing some eye exercsies and some head/neck work. 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 She still goes for a walk and uses a cane now and goes about 2 miles and it is all flat 3x week and doesn't walk alone. They are better than they were in May but still frequently. She used to wake up with them but now they are just random. Most of the time they come/go during the day. Typically about every day that last under an hr and sometimes gets more than 1 a day. Notes FRAUSTO are in frontal region and orbital. When first started, they were pretty constant. Hip pain is more mild and it comes/goes and has been present for the past 1 year. It bothers her when walking longer and turning over in bed . Pain in ant lat hip and sometimes shoots down lat thigh. She does live alone and wears a life alert all the time. Pt has been so weak and feels really weak and occ in the shower needs to sit down d /t feeling winded or weak/ tired in legs) Treatment Goals Patient/Caregiver Goals Have better balance, not feel so insecure about doing physical activities herself. Feel more secure about taking care of traffic agent (get in/out of shower(walk in), change a lightbulb etc) PT-OP-C Subjective Start: 03/13/23 07:53 Freq: Status: Active Protocol: Document 04/18/23 11:16 DCW (Rec: 04/18/23 12:02 [facility] [id number]) OP-PT Subjective Patient Comments Patient Comments Pt notes worsening symptoms when first getting up in the morning. Balance was really bad at [employer] this week, enough to be upsetting. PT-OP-E Functional Tests Start: 03/14/23 13:42 Freq: Status: Active Protocol: Document 03/14/23 09:02 [facility] (Rec: 03/14/23 13:48 [facility] [id number]) Functional Tests 30 Second Sit to Stand Test Score 7 Comments pt felt dizzy shortly after; silver chair Dynamic Gait Index (DGI) Score 11/24 Five Times Sit to Stand Test Score 20 sec Comments silver chair Functional Gait Assessment Score 15/30 PT-OP-F Manual Assessment Start: 03/13/23 07:53 Freq: Status: Active Protocol: Document 03/14/23 09:02 [facility] (Rec: 03/14/23 13:50 [facility] [id number]) Manual Assessments Other Manual Assessments Other Manual Assessments 162/78 BP tested after sit to stand test PT-OP-G Mobility & Gait Start: 03/13/23 07:53 Freq: Status: Active Protocol: Document 03/14/23 09:02 [facility] (Rec: 03/14/23 11:12 [facility] [id number]) OP Gait Assessment Comments Gait Comments Pt has dec stance time on LLE and keeps arms to side for balance, lat leaning w/gait PT-OP-K Range of Motion Start: 03/13/23 07:53 Freq: Status: Active Protocol: Document 03/14/23 09:02 [facility] (Rec: 03/14/23 11:12 [facility] [id number]) Cervical Spine Range of Motion Cervical Spine Active Percentage Flexion 60 Extension 40 Rotation Left 50 Rotation Right 50 Lateral Flexion Left 40 Lateral Flexion Right 25 ROM Limitations Soft Tissue Tightness,Pain PT-OP-O Vestibular Start: 03/27/23 10:32 Freq: Status: Active Protocol: Document 03/27/23 10:34 DCW (Rec: 03/27/23 14:07 DCW [id number]) Vestibular Assessment Auditory Tests Mittal Test Within normal limits Air Conduction Results Left Greater Visual Testing Smooth Pursuits Horizontal Difficulty following target Smooth Pursuits Vertical Difficulty following target Saccades Horizontal Increased symptoms Heave Test Positive L Thrust Head Positive L Convergence Test 43 cm DVA (Line Degradation) 5 Spontaneous Nystagmus Negative Vestibular Function Tests Fukuda Test Impaired Comments Vestibular Comments Fukuda difficult to grade, as pt was so unsteady, she was unable to perform full marching motion, and opened her eyes multiple times. PT-OP-Q Treatments Start: 03/13/23 07:53 Freq: Status: Active Protocol: Document 04/18/23 11:16 DCW (Rec: 04/18/23 12:02 DCW [id number]) Neuro Re-Education Treatment Balance Activities Tandem Stance Details Tandem Stance Equipment // bars foam Surface Blue Foam Comments X1 (80 bpm) Vestibular Rehabilitation Visual Conflict Details NBOS Background [place] Print board X1 Viewing Details Static target with head turns Speed as tolerated Position Pearson walking Self-Care/Home Management Treatment Education Other Education Orthostatic BPs Supine BP: 161/89 Sitting BP: 155/83 Standing BP: 156/93 PT-OP-T Assessment and Plan Start: 03/13/23 07:53 Freq: Status: Active Protocol: Document 04/18/23 11:16 DCW (Rec: 04/18/23 12:02 DCW [id number]) Physical Therapy Assessment Goals DVA Impairment 5 line degradation during DVA testing [facility] Goal (LTG) Pt to demonstrate improved dynamic visual acuity by scoring three or few line degradation during DVA testing LTG Duration 06/06/23 activities Tube Roller Goal (LTG) Pt will report greater ease of traffic agent/ADLs like showering w/feeling of inc stability and less c/o weakness and fatigue LTG Duration 06/06/23 pain Short Term Goal (STG) Pt will report no hip pain w/ walk, allowing her to start to inc distance. STG Duration 05/12/23 Tube Roller Goal (LTG) Pt will report no more than 1 FRAUSTO a week. LTG Duration 06/06/23 strength Impairment 5x sit to stand: 20 sec; 30 sec sit to stand: 7 Short Term Goal (STG) Pt will improve 5x sit to stand to less than 15 sec to show improved LE strength and dec risk for falls. STG Duration 05/06/24 [facility] Goal (LTG) Pt will improve 30 sec sit to stand to at least 10 w/o dizziness after as appropriate w/age related norms in order to show improved LE strength/ activity tolerance and dec risk for falls. LTG Duration 06/06/23 balance Impairment DGI: 04/06 FGA: 15 Short Term Goal (STG) Pt will improve DGI to at least 15/24 to show improved balance and dec risk for falls . STG Duration 04/24/23 Tube Roller Goal (LTG) Pt will improve DGI to at least 20/24 and FGA to at least to show improved balance and dec risk for falls . LTG Duration 06/06/23 Assessment Summary Assessment Pt demonstrating improved tolerance to activity during head turns, although did have difficulty with head turns and trunk turns during horizontal movement. Physical Therapy Plan Frequency and Duration Frequency of Treatment 1-2x/wk Duration of treatment (weeks) 12 Plan of Care Start Date 03/27/23 Plan of Care End Date 06/06/23 Next Visit Focus/Plan Next Note Type Treatment Note Next Visit Plan cont to advance vestibular rehab as tolerated; advance balance and LE strengthening as tolerated. Improve pelvis alignment to improve pt comfort w/wt acceptance w/gait
--- NOTE | 2023-04-25 13:56 | PT.OTN ---
Current Diagnoses Other disorders of vestibular function, left ear (04/25/23) Muscle weakness (generalized) (04/25/23) Difficulty in walking, not elsewhere classified (04/25/23) Unsteadiness on feet (04/25/23) Abnormal posture (04/25/23) Physical Therapy Treatment Note PT-OP-A Visit Information Start: 03/13/23 07:53 Freq: Status: Active Protocol: Document 04/25/23 10:58 [facility] (Rec: 04/25/23 13:56 [facility] [id number]) Out-Patient Physical Therapy Visit Information Visit Information Visit Type Treatment Note Visit Note 09/20 Visit Start Time 11:20 Visit Stop Time 12:05 Total Visit Minutes 45 Visit Number 7 Number of CONTINUOUS PROCESS ROTARY DRUM TANNER Visits 0 PT-OP-B Current Condition Start: 03/13/23 07:53 Freq: Status: Active Protocol: Document 03/14/23 09:02 [facility] (Rec: 03/14/23 11:12 [facility] [id number]) Current Condition History of Current Condition History of Current Condition Pt reports her main issue is her balance. Pt had nausea/ vomitting/dizziness/FRAUSTO starting end of May and was diagnosed w/vestibular neuritis. She feels like when she turns her head, it feels like her eyes and head are not in sync. She doesn't feel secure anymore. This has just been since May. Pt had COVID last summer. She saw a herbarium worker and hollow handle bench worker etc. She is having some symtoms re: this. She used to go for very long walks like [employer] and couldn't do it anymore. She got too short of breath. They did tons of tests . She was seeing Jessica Levine PT in [place] and transfering here. She has been going for a few months. She has been focusing on the balance and her hip issue. She has been doing some eye exercsies and some head/neck work. 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 She still goes for a walk and uses a cane now and goes about 2 miles and it is all flat 3x week and doesn't walk alone. They are better than they were in May but still frequently. She used to wake up with them but now they are just random. Most of the time they come/go during the day. Typically about every day that last under an hr and sometimes gets more than 1 a day. Notes FRAUSTO are in frontal region and orbital. When first started, they were pretty constant. Hip pain is more mild and it comes/goes and has been present for the past 1 year. It bothers her when walking longer and turning over in bed . Pain in ant lat hip and sometimes shoots down lat thigh. She does live alone and wears a life alert all the time. Pt has been so weak and feels really weak and occ in the shower needs to sit down d /t feeling winded or weak/ tired in legs) Treatment Goals Patient/Caregiver Goals Have better balance, not feel so insecure about doing physical activities herself. Feel more secure about taking care of filter press pumper (get in/out of shower(walk in), change a lightbulb etc) PT-OP-C Subjective Start: 03/13/23 07:53 Freq: Status: Active Protocol: Document 04/25/23 10:58 [facility] (Rec: 04/25/23 13:56 [facility] [id number]) OP-PT Subjective Patient Comments Patient Comments hip is feeling better. Balance comes and goes. Some days can do tandem and others it doesn 't work. Pt reports her doctor has asked for PT to check if her BP cuff is calibrated. PT-OP-E Functional Tests Start: 03/14/23 13:42 Freq: Status: Active Protocol: Document 03/14/23 09:02 [facility] (Rec: 03/14/23 13:48 [facility] [id number]) Functional Tests 30 Second Sit to Stand Test Score 7 Comments pt felt dizzy shortly after; silver chair Dynamic Gait Index (DGI) Score 11 Five Times Sit to Stand Test Score 20 sec Comments silver chair Functional Gait Assessment Score 15/30 PT-OP-F Manual Assessment Start: 03/13/23 07:53 Freq: Status: Active Protocol: Document 03/14/23 09:02 [facility] (Rec: 03/14/23 13:50 [facility] [id number]) Manual Assessments Other Manual Assessments Other Manual Assessments 162/78 BP tested after sit to stand test PT-OP-G Mobility & Gait Start: 03/13/23 07:53 Freq: Status: Active Protocol: Document 03/14/23 09:02 [facility] (Rec: 03/14/23 11:12 [facility] [id number]) OP Gait Assessment Comments Gait Comments Pt has dec stance time on LLE and keeps arms to side for balance, lat leaning w/gait PT-OP-K Range of Motion Start: 03/13/23 07:53 Freq: Status: Active Protocol: Document 03/14/23 09:02 [facility] (Rec: 03/14/23 11:12 [facility] [id number]) Cervical Spine Range of Motion Cervical Spine Active Percentage Flexion 60 Extension 40 Rotation Left 50 Rotation Right 50 Lateral Flexion Left 40 Lateral Flexion Right 25 ROM Limitations Soft Tissue Tightness,Pain PT-OP-O Vestibular Start: 03/27/23 10:32 Freq: Status: Active Protocol: Document 03/27/23 10:34 [facility] (Rec: 03/27/23 14:07 [facility] [id number]) Vestibular Assessment Auditory Tests Mittal Test Within normal limits Air Conduction Results Left Greater Visual Testing Smooth Pursuits Horizontal Difficulty following target Smooth Pursuits Vertical Difficulty following target Saccades Horizontal Increased symptoms Heave Test Positive L Thrust Head Positive L Convergence Test 43 cm DVA (Line Degradation) 5 Spontaneous Nystagmus Negative Vestibular Function Tests Fukuda Test Impaired Comments Vestibular Comments Fukuda difficult to grade, as pt was so unsteady, she was unable to perform full marching motion, and opened her eyes multiple times. PT-OP-Q Treatments Start: 03/13/23 07:53 Freq: Status: Active Protocol: Document 04/25/23 10:58 [facility] (Rec: 04/25/23 13:56 [facility] [id number]) Gym Equipment Therapeutic Ball seated Ball Size/Color green Body Position seated Reps/Duration 15 ea Comments 1. fwd/back wt shifts 2. side to side wt shifts 3. marching w/cues for posture Therapeutic Exercises Standing Exercises sidesteps Side bilateral Equipment Used lvl 1 Reps/Minutes 20ft ea Neuro Re-Education Treatment Balance Activities hurdles Details hand on rail down to 1 finger Surface firm Equipment 6 hurdles Comments 1. fwd over hurdles recip x8 2. sidepstep over hurdles x2 B Tandem Stance Details tandem walk Reps/Duration 2x20ft SLS Details toe taps to step Equipment 8 in step Reps/Duration 10 B foam Details EO, EC, head turns B Surface Blue Foam Comments WBOS, NBOS, Staggered stance Self-Care/Home Management Treatment Education Other Education at start of session: BP 160/77 on own cuff & 2 min late 141/ 75 on PT cuff (pt reported she was anxious about being late and was running into clinic so BP may have been higher w/her cuff d/t rushing and anxious about late) Checked again at end of session after resting & sleep edu 138/77 PT cuff 142/84 self cuff Activities Self-Care/Home Management Activities 5 min: sleep education w/BEAR training w/use of pillow btwn legs, under head and under top arm and towel under side. PT-OP-T Assessment and Plan Start: 03/13/23 07:53 Freq: Status: Active Protocol: Document 04/25/23 10:58 [facility] (Rec: 04/25/23 13:56 [facility] [id number]) Physical Therapy Assessment Goals DVA Impairment 5 line degradation during DVA testing Skilled Nursing Goal (LTG) Pt to demonstrate improved dynamic visual acuity by scoring three or few line degradation during DVA testing LTG Duration 06/06/23 activities Skilled Nursing Goal (LTG) Pt will report greater ease of filter press pumper/ADLs like showering w/feeling of inc stability and less c/o weakness and fatigue LTG Duration 06/06/23 pain Short Term Goal (STG) Pt will report no hip pain w/ walk, allowing her to start to inc distance. STG Duration 05/12/23 Labeling Associate Goal (LTG) Pt will report no more than 1 FRAUSTO a week. LTG Duration 06/06/23 strength Impairment 5x sit to stand: 20 sec; 30 sec sit to stand: 7 Short Term Goal (STG) Pt will improve 5x sit to stand to less than 15 sec to show improved LE strength and dec risk for falls. STG Duration 05/06/24 Labeling Associate Goal (LTG) Pt will improve 30 sec sit to stand to at least 10 w/o dizziness after as appropriate w/age related norms in order to show improved LE strength/ activity tolerance and dec risk for falls. LTG Duration 06/06/23 balance Impairment DGI: 04/06 FGA: Short Term Goal (STG) Pt will improve DGI to at least to show improved balance and dec risk for falls . STG Duration 12/12/23 Skilled Nursing Goal (LTG) Pt will improve DGI to at least and FGA to at least to show improved balance and dec risk for falls . LTG Duration 06/06/23 Assessment Summary Assessment Pt did well with balance tasks and was most challenged by hurdles though and did require ENVIRONMENTAL RESEARCH PROJECT MANAGER on rail initially and was able to dec w/reps. She felt comfortable w/sleep position and palns to try this at home as she reports she wakes up feeling in pain everywhere. Physical Therapy Plan Frequency and Duration Frequency of Treatment 1-2x/wk Duration of treatment (weeks) 12 Plan of Care Start Date 03/27/23 Plan of Care End Date 06/06/23 Next Visit Focus/Plan Next Note Type Treatment Note Next Visit Plan cont to advance vestibular rehab as tolerated; advance balance and LE strengthening as tolerated. Improve pelvis alignment to improve pt comfort w/wt acceptance w/gait
--- NOTE | 2023-05-01 12:45 | PT.OTN ---
Current Diagnoses Other disorders of vestibular function, left ear (05/01/23) Muscle weakness (generalized) (05/01/23) Difficulty in walking, not elsewhere classified (05/01/23) Unsteadiness on feet (05/01/23) Abnormal posture (05/01/23) Physical Therapy Treatment Note PT-OP-A Visit Information Start: 03/13/23 07:53 Freq: Status: Active Protocol: Document 05/01/23 12:00 [facility] (Rec: 05/01/23 12:45 [facility] [id number]) Out-Patient Physical Therapy Visit Information Visit Information Visit Type Treatment Note Visit Note 10/21 Visit Start Time 12:00 Visit Stop Time 12:45 Total Visit Minutes 45 Visit Number 8 Number of LEGGER PRESS OPERATOR Visits 0 PT-OP-B Current Condition Start: 03/13/23 07:53 Freq: Status: Active Protocol: Document 03/14/23 09:02 [facility] (Rec: 03/14/23 11:12 [facility] [id number]) Current Condition History of Current Condition History of Current Condition Pt reports her main issue is her balance. Pt had nausea/ vomitting/dizziness/FRAUSTO starting end of May and was diagnosed w/vestibular neuritis. She feels like when she turns her head, it feels like her eyes and head are not in sync. She doesn't feel secure anymore. This has just been since May. Pt had COVID last summer. She saw a lead military analyst and tool and cutter grinder etc. She is having some symtoms re: this. She used to go for very long walks like [employer] and couldn't do it anymore. She got too short of breath. They did tons of tests . She was seeing Jessica Levine PT in [place] and transfering here. She has been going for a few months. She has been focusing on the balance and her hip issue. She has been doing some eye exercsies and some head/neck work. 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 She still goes for a walk and uses a cane now and goes about 2 miles and it is all flat 3x week and doesn't walk alone. They are better than they were in May but still frequently. She used to wake up with them but now they are just random. Most of the time they come/go during the day. Typically about every day that last under an hr and sometimes gets more than 1 a day. Notes FRAUSTO are in frontal region and orbital. When first started, they were pretty constant. Hip pain is more mild and it comes/goes and has been present for the past 1 year. It bothers her when walking longer and turning over in bed . Pain in ant lat hip and sometimes shoots down lat thigh. She does live alone and wears a life alert all the time. Pt has been so weak and feels really weak and occ in the shower needs to sit down d /t feeling winded or weak/ tired in legs) Treatment Goals Patient/Caregiver Goals Have better balance, not feel so insecure about doing physical activities herself. Feel more secure about taking care of sales effectiveness manager (get in/out of shower(walk in), change a lightbulb etc) PT-OP-C Subjective Start: 03/13/23 07:53 Freq: Status: Active Protocol: Document 05/01/23 12:00 [facility] (Rec: 05/01/23 12:45 [facility] [id number]) OP-PT Subjective Patient Comments Patient Comments Balance seems to be better, I was doing some amazing stuff in [place] yesterday. PT-OP-E Functional Tests Start: 03/14/23 13:42 Freq: Status: Active Protocol: Document 03/14/23 09:02 [facility] (Rec: 03/14/23 13:48 [facility] [id number]) Functional Tests 30 Second Sit to Stand Test Score 7 Comments pt felt dizzy shortly after; silver chair Dynamic Gait Index (DGI) Score 11/24 Five Times Sit to Stand Test Score 20 sec Comments silver chair Functional Gait Assessment Score 15/30 PT-OP-F Manual Assessment Start: 03/13/23 07:53 Freq: Status: Active Protocol: Document 03/14/23 09:02 [facility] (Rec: 03/14/23 13:50 [facility] [id number]) Manual Assessments Other Manual Assessments Other Manual Assessments 162/78 BP tested after sit to stand test PT-OP-G Mobility & Gait Start: 03/13/23 07:53 Freq: Status: Active Protocol: Document 03/14/23 09:02 [facility] (Rec: 03/14/23 11:12 [facility] [id number]) OP Gait Assessment Comments Gait Comments Pt has dec stance time on LLE and keeps arms to side for balance, lat leaning w/gait PT-OP-K Range of Motion Start: 03/13/23 07:53 Freq: Status: Active Protocol: Document 03/14/23 09:02 [facility] (Rec: 03/14/23 11:12 [facility] [id number]) Cervical Spine Range of Motion Cervical Spine Active Percentage Flexion 60 Extension 40 Rotation Left 50 Rotation Right 50 Lateral Flexion Left 40 Lateral Flexion Right 25 ROM Limitations Soft Tissue Tightness,Pain PT-OP-O Vestibular Start: 03/27/23 10:32 Freq: Status: Active Protocol: Document 03/27/23 10:34 [facility] (Rec: 03/27/23 14:07 [facility] [id number]) Vestibular Assessment Auditory Tests Mittal Test Within normal limits Air Conduction Results Left Greater Visual Testing Smooth Pursuits Horizontal Difficulty following target Smooth Pursuits Vertical Difficulty following target Saccades Horizontal Increased symptoms Heave Test Positive L Thrust Head Positive L Convergence Test 43 cm DVA (Line Degradation) 5 Spontaneous Nystagmus Negative Vestibular Function Tests Fukuda Test Impaired Comments Vestibular Comments Fukuda difficult to grade, as pt was so unsteady, she was unable to perform full marching motion, and opened her eyes multiple times. PT-OP-Q Treatments Start: 03/13/23 07:53 Freq: Status: Active Protocol: Document 05/01/23 12:00 [facility] (Rec: 05/01/23 12:45 [facility] [id number]) Gym Equipment Shuttle Balance Red Details WBOS (X1) Neuro Re-Education Treatment Balance Activities Dynamic Ambulation Details Pearson Ambulation Comments Horizontal/Vertical head turns (90 bpm) Retro Ambulation Ambulating with eyes closed Tandem Stance Details tandem walk Reps/Duration 2x20ft foam Details Foam stepping stones over hurdles Comments Fwd, Tandem Vestibular Rehabilitation Visual Conflict Details NBOS on Blue Foam Background [place] [employer] board PT-OP-T Assessment and Plan Start: 03/13/23 07:53 Freq: Status: Active Protocol: Document 05/01/23 12:00 [facility] (Rec: 05/01/23 12:45 [facility] [id number]) Physical Therapy Assessment Goals DVA Impairment 5 line degradation during DVA testing Teacher Tutor Goal (LTG) Pt to demonstrate improved dynamic visual acuity by scoring three or few line degradation during DVA testing LTG Duration 06/06/23 activities Snf Goal (LTG) Pt will report greater ease of sales effectiveness manager/ADLs like showering w/feeling of inc stability and less c/o weakness and fatigue LTG Duration 06/06/23 pain Short Term Goal (STG) Pt will report no hip pain w/ walk, allowing her to start to inc distance. STG Duration 05/12/23 Snf Goal (LTG) Pt will report no more than 1 FRAUSTO a week. LTG Duration 06/06/23 strength Impairment 5x sit to stand: 20 sec; 30 sec sit to stand: 7 Short Term Goal (STG) Pt will improve 5x sit to stand to less than 15 sec to show improved LE strength and dec risk for falls. STG Duration 05/06/24 Teacher Tutor Goal (LTG) Pt will improve 30 sec sit to stand to at least 10 w/o dizziness after as appropriate w/age related norms in order to show improved LE strength/ activity tolerance and dec risk for falls. LTG Duration 06/06/23 balance Impairment DGI: 04/06 FGA: 15 Short Term Goal (STG) Pt will improve DGI to at least 15/24 to show improved balance and dec risk for falls . STG Duration 04/24/23 Snf Goal (LTG) Pt will improve DGI to at least 20/24 and FGA to at least 22/30 to show improved balance and dec risk for falls . LTG Duration 06/06/23 Assessment Summary Assessment Pt noted both Shuttle Balance and hurdles /c foam were very difficult, but felt that they were a good challenge. Continues to show good response to VOR retraining and X1/X2 vestibular habituation exercises. Physical Therapy Plan Frequency and Duration Frequency of Treatment 1-2x/wk Duration of treatment (weeks) 12 Plan of Care Start Date 03/27/23 Plan of Care End Date 06/06/23 Next Visit Focus/Plan Next Note Type Treatment Note Next Visit Plan cont to advance vestibular rehab as tolerated; advance balance and LE strengthening as tolerated. Improve pelvis alignment to improve pt comfort w/wt acceptance w/gait
--- NOTE | 2023-05-16 12:22 | PT.OTN ---
Current Diagnoses Other disorders of vestibular function, left ear (05/16/23) Muscle weakness (generalized) (05/16/23) Difficulty in walking, not elsewhere classified (05/16/23) Unsteadiness on feet (05/16/23) Abnormal posture (05/16/23) Physical Therapy Treatment Note PT-OP-A Visit Information Start: 03/13/23 07:53 Freq: Status: Active Protocol: Document 05/16/23 11:22 [facility] (Rec: 05/16/23 12:21 [facility] [id number]) Out-Patient Physical Therapy Visit Information Visit Information Visit Type Treatment Note Visit Note 11/20 Visit Start Time 11: Visit Stop Time 12:03 Total Visit Minutes 40 Visit Number 9 Number of TOOL PROCUREMENT COORDINATOR Visits 0 PT-OP-B Current Condition Start: 03/13/23 07:53 Freq: Status: Active Protocol: Document 03/14/23 09:02 [facility] (Rec: 03/14/23 11:12 [facility] [id number]) Current Condition History of Current Condition History of Current Condition Pt reports her main issue is her balance. Pt had nausea/ vomitting/dizziness/FRAUSTO starting end of May and was diagnosed w/vestibular neuritis. She feels like when she turns her head, it feels like her eyes and head are not in sync. She doesn't feel secure anymore. This has just been since May. Pt had COVID last summer. She saw a fiberglass quality technician and turbo operator etc. She is having some symtoms re: this. She used to go for very long walks like [employer] and couldn't do it anymore. She got too short of breath. They did tons of tests . She was seeing Jessica Levine PT in [place] and transfering here. She has been going for a few months. She has been focusing on the balance and her hip issue. She has been doing some eye exercsies and some head/neck work. 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 She still goes for a walk and uses a cane now and goes about 2 miles and it is all flat 3x week and doesn't walk alone. They are better than they were in May but still frequently. She used to wake up with them but now they are just random. Most of the time they come/go during the day. Typically about every day that last under an hr and sometimes gets more than 1 a day. Notes FRAUSTO are in frontal region and orbital. When first started, they were pretty constant. Hip pain is more mild and it comes/goes and has been present for the past 1 year. It bothers her when walking longer and turning over in bed . Pain in ant lat hip and sometimes shoots down lat thigh. She does live alone and wears a life alert all the time. Pt has been so weak and feels really weak and occ in the shower needs to sit down d /t feeling winded or weak/ tired in legs) Treatment Goals Patient/Caregiver Goals Have better balance, not feel so insecure about doing physical activities herself. Feel more secure about taking care of dancing instructor (get in/out of shower(walk in), change a lightbulb etc) PT-OP-C Subjective Start: 03/13/23 07:53 Freq: Status: Active Protocol: Document 05/16/23 11:22 [facility] (Rec: 05/16/23 12:21 [facility] [id number]) OP-PT Subjective Patient Comments Patient Comments Pt had a med change that caused edema and stopped it and BP went up and its been doubled for 2 days now. highest 191/90. Walked about 1 -1.5 mile today. PT-OP-E Functional Tests Start: 03/14/23 13:42 Freq: Status: Active Protocol: Document 03/14/23 09:02 [facility] (Rec: 03/14/23 13:48 [facility] [id number]) Functional Tests 30 Second Sit to Stand Test Score 7 Comments pt felt dizzy shortly after; silver chair Dynamic Gait Index (DGI) Score 04/06 Five Times Sit to Stand Test Score 20 sec Comments silver chair Functional Gait Assessment Score 15/30 PT-OP-F Manual Assessment Start: 03/13/23 07:53 Freq: Status: Active Protocol: Document 03/14/23 09:02 [facility] (Rec: 03/14/23 13:50 [facility] [id number]) Manual Assessments Other Manual Assessments Other Manual Assessments 162/78 BP tested after sit to stand test PT-OP-G Mobility & Gait Start: 03/13/23 07:53 Freq: Status: Active Protocol: Document 03/14/23 09:02 [facility] (Rec: 03/14/23 11:12 [facility] [id number]) OP Gait Assessment Comments Gait Comments Pt has dec stance time on LLE and keeps arms to side for balance, lat leaning w/gait PT-OP-K Range of Motion Start: 03/13/23 07:53 Freq: Status: Active Protocol: Document 03/14/23 09:02 [facility] (Rec: 03/14/23 11:12 [facility] [id number]) Cervical Spine Range of Motion Cervical Spine Active Percentage Flexion 60 Extension 40 Rotation Left 50 Rotation Right 50 Lateral Flexion Left 40 Lateral Flexion Right 25 ROM Limitations Soft Tissue Tightness,Pain PT-OP-O Vestibular Start: 03/27/23 10:32 Freq: Status: Active Protocol: Document 03/27/23 10:34 [facility] (Rec: 03/27/23 14:07 [facility] [id number]) Vestibular Assessment Auditory Tests Mittal Test Within normal limits Air Conduction Results Left Greater Visual Testing Smooth Pursuits Horizontal Difficulty following target Smooth Pursuits Vertical Difficulty following target Saccades Horizontal Increased symptoms Heave Test Positive L Thrust Head Positive L Convergence Test 43 cm DVA (Line Degradation) 5 Spontaneous Nystagmus Negative Vestibular Function Tests Fukuda Test Impaired Comments Vestibular Comments Fukuda difficult to grade, as pt was so unsteady, she was unable to perform full marching motion, and opened her eyes multiple times. PT-OP-Q Treatments Start: 03/13/23 07:53 Freq: Status: Active Protocol: Document 05/16/23 11:22 [facility] (Rec: 05/16/23 12:21 [facility] [id number]) Gym Equipment Sport Cord backwards Exercise Details back walk w/eccentric fwd Reps/Duration 10 fwd Exercise Details fwd walk w/eccentric back Reps/Duration 10 Therapeutic Exercises Sitting Exercises SB Sitting Exercise Name to R w/opp UE overhead Reps/Minutes 3x20 sec Standing Exercises step up Standing Exercise Name to SL w/opp LE march Side bilateral Reps/Minutes 10 sidesteps Side bilateral Equipment Used lvl 1 Reps/Minutes 20ft ea hip hike Side bilateral Equipment Used step w/rail Reps/Minutes 10 Manual Therapy Treatment Joint Mobilizations ribs Comments SB to R (R) ribs FM w/B rotations Self-Care/Home Management Treatment Education Other Education BP at start of session: 184/80 PT-OP-T Assessment and Plan Start: 03/13/23 07:53 Freq: Status: Active Protocol: Document 05/16/23 11:22 [facility] (Rec: 05/16/23 12:21 [facility] [id number]) Physical Therapy Assessment Goals DVA Impairment 5 line degradation during DVA testing Shelter Goal (LTG) Pt to demonstrate improved dynamic visual acuity by scoring three or few line degradation during DVA testing LTG Duration 06/06/23 activities Shelter Goal (LTG) Pt will report greater ease of dancing instructor/ADLs like showering w/feeling of inc stability and less c/o weakness and fatigue LTG Duration 06/06/23 pain Short Term Goal (STG) Pt will report no hip pain w/ walk, allowing her to start to inc distance. STG Duration 05/12/23 Sign Fabricator Goal (LTG) Pt will report no more than 1 FRAUSTO a week. LTG Duration 06/06/23 strength Impairment 5x sit to stand: 20 sec; 30 sec sit to stand: 7 Short Term Goal (STG) Pt will improve 5x sit to stand to less than 15 sec to show improved LE strength and dec risk for falls. STG Duration 05/06/24 Sign Fabricator Goal (LTG) Pt will improve 30 sec sit to stand to at least 10 w/o dizziness after as appropriate w/age related norms in order to show improved LE strength/ activity tolerance and dec risk for falls. LTG Duration 06/06/23 balance Impairment DGI: 04/06 FGA: 15 Short Term Goal (STG) Pt will improve DGI to at least 15/24 to show improved balance and dec risk for falls . STG Duration 04/24/23 Shelter Goal (LTG) Pt will improve DGI to at least 20/24 and FGA to at least 22/30 to show improved balance and dec risk for falls . LTG Duration 06/06/23 Assessment Summary Assessment Pt had improved B Rotationa nd R SB after manual. She has no ability to pelvic shear R and is stuck in L pelvic shear, whcih makes it difficult for her to wt accept onto LLE and tends to inc limp and dec L glute med activation. Improved to be able to pelvic shear to neutral after manual. Physical Therapy Plan Frequency and Duration Frequency of Treatment 1-2x/wk Duration of treatment (weeks) 12 Plan of Care Start Date 03/27/23 Plan of Care End Date 06/06/23 Next Visit Focus/Plan Next Note Type Treatment Note Next Visit Plan cont to advance vestibular rehab as tolerated; advance balance and LE strengthening as tolerated. Improve pelvis alignment to improve pt comfort w/wt acceptance w/gait
--- NOTE | 2023-06-06 15:07 | PT.OTN ---
Current Diagnoses Other disorders of vestibular function, left ear (06/06/23) Muscle weakness (generalized) (06/06/23) Difficulty in walking, not elsewhere classified (06/06/23) Unsteadiness on feet (06/06/23) Abnormal posture (06/06/23) Physical Therapy Treatment Note PT-OP-A Visit Information Start: 03/13/23 07:53 Freq: Status: Active Protocol: Document 06/06/23 13:53 [facility] (Rec: 06/06/23 15:07 [facility] [id number]) Out-Patient Physical Therapy Visit Information Visit Information Visit Type Progress Note Visit Note 05/23 Visit Start Time 13:54 Visit Stop Time 14:34 Visit Number 10 Number of RATOPRINTER Visits 0 PT-OP-B Current Condition Start: 03/13/23 07:53 Freq: Status: Active Protocol: Document 03/14/23 09:02 [facility] (Rec: 03/14/23 11:12 [facility] [id number]) Current Condition History of Current Condition History of Current Condition Pt reports her main issue is her balance. Pt had nausea/ vomitting/dizziness/FRAUSTO starting end of May and was diagnosed w/vestibular neuritis. She feels like when she turns her head, it feels like her eyes and head are not in sync. She doesn't feel secure anymore. This has just been since May. Pt had COVID last summer. She saw a optical lens manufacturing tech and american sign language interpreter etc. She is having some symtoms re: this. She used to go for very long walks like [place] and couldn't do it anymore. She got too short of breath. They did tons of tests . She was seeing Jessica Levine PT in [place] and transfering here. She has been going for a few months. She has been focusing on the balance and her hip issue. She has been doing some eye exercsies and some head/neck work. 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 She still goes for a walk and uses a cane now and goes about 2 miles and it is all flat 3x week and doesn't walk alone. They are better than they were in May but still frequently. She used to wake up with them but now they are just random. Most of the time they come/go during the day. Typically about every day that last under an hr and sometimes gets more than 1 a day. Notes FRAUSTO are in frontal region and orbital. When first started, they were pretty constant. Hip pain is more mild and it comes/goes and has been present for the past 1 year. It bothers her when walking longer and turning over in bed . Pain in ant lat hip and sometimes shoots down lat thigh. She does live alone and wears a life alert all the time. Pt has been so weak and feels really weak and occ in the shower needs to sit down d /t feeling winded or weak/ tired in legs) Treatment Goals Patient/Caregiver Goals Have better balance, not feel so insecure about doing physical activities herself. Feel more secure about taking care of recreation aide (get in/out of shower(walk in), change a lightbulb etc) PT-OP-C Subjective Start: 03/13/23 07:53 Freq: Status: Active Protocol: Document 06/06/23 13:53 [facility] (Rec: 06/06/23 15:07 [facility] [id number]) OP-PT Subjective Patient Comments Patient Comments Pt reports her dizziness feels better. Feels like exercises help. she doesn't feel as dizzy after exercises. Being busy in the day stops her from always doing vestib exercises 3x every day, bu tdoes do them twice most days. compliant w/strength/balance exercises. Always does her tandem stance Patient Reported Progress Improving PT-OP-E Functional Tests Start: 03/14/23 13:42 Freq: Status: Active Protocol: Document 06/06/23 13:53 [facility] (Rec: 06/06/23 15:07 [facility] [id number]) Functional Tests 30 Second Sit to Stand Test Score 12 Dynamic Gait Index (DGI) Score 18/24 Five Times Sit to Stand Test Score 13 sec Functional Gait Assessment Score 22/30 PT-OP-F Manual Assessment Start: 03/13/23 07:53 Freq: Status: Active Protocol: Document 03/14/23 09:02 [facility] (Rec: 03/14/23 13:50 [facility] [id number]) Manual Assessments Other Manual Assessments Other Manual Assessments 162/78 BP tested after sit to stand test PT-OP-G Mobility & Gait Start: 03/13/23 07:53 Freq: Status: Active Protocol: Document 03/14/23 09:02 [facility] (Rec: 03/14/23 11:12 [facility] [id number]) OP Gait Assessment Comments Gait Comments Pt has dec stance time on LLE and keeps arms to side for balance, lat leaning w/gait PT-OP-K Range of Motion Start: 03/13/23 07:53 Freq: Status: Active Protocol: Document 03/14/23 09:02 [facility] (Rec: 03/14/23 11:12 [facility] [id number]) Cervical Spine Range of Motion Cervical Spine Active Percentage Flexion 60 Extension 40 Rotation Left 50 Rotation Right 50 Lateral Flexion Left 40 Lateral Flexion Right 25 ROM Limitations Soft Tissue Tightness,Pain PT-OP-O Vestibular Start: 03/27/23 10:32 Freq: Status: Active Protocol: Document 03/27/23 10:34 [facility] (Rec: 03/27/23 14:07 [facility] [id number]) Vestibular Assessment Auditory Tests Mittal Test Within normal limits Air Conduction Results Left Greater Visual Testing Smooth Pursuits Horizontal Difficulty following target Smooth Pursuits Vertical Difficulty following target Saccades Horizontal Increased symptoms Heave Test Positive L Thrust Head Positive L Convergence Test 43 cm DVA (Line Degradation) 5 Spontaneous Nystagmus Negative Vestibular Function Tests Fukuda Test Impaired Comments Vestibular Comments Fukuda difficult to grade, as pt was so unsteady, she was unable to perform full marching motion, and opened her eyes multiple times. PT-OP-Q Treatments Start: 03/13/23 07:53 Freq: Status: Active Protocol: Document 06/06/23 13:53 [facility] (Rec: 06/06/23 15:07 [facility] [id number]) Therapeutic Exercises Standing Exercises step up Standing Exercise Name to SL w/opp LE march Side bilateral Equipment Used 6 in w/ rail Reps/Minutes 10 sidesteps Side bilateral Equipment Used lvl 1 Reps/Minutes 15ft ea hip hike Side bilateral Equipment Used step w/rail Reps/Minutes 5 Other Exercises sit to stand testing Reps/Minutes 2x Neuro Re-Education Treatment Balance Activities testing Comments FGA and DGI PT-OP-T Assessment and Plan Start: 03/13/23 07:53 Freq: Status: Active Protocol: Document 06/06/23 13:53 [facility] (Rec: 06/06/23 15:07 [facility] [id number]) Physical Therapy Assessment Goals DVA Impairment 5 line degradation during DVA testing [facility] Goal (LTG) Pt to demonstrate improved dynamic visual acuity by scoring three or few line degradation during DVA testing 06/06-n/t d/t not w/vestib PT today LTG Duration 08/27 activities [facility] Goal (LTG) Pt will report greater ease of recreation aide/ADLs like showering w/feeling of inc stability and less c/o weakness and fatigue 06/06-still needs rest but is getting better; shower is easier LTG Duration 08/27 pain Short Term Goal (STG) Pt will report no hip pain w/ walk, allowing her to start to inc distance. 06/06-no hip pain but has not inc STG Duration 05/12/23 [facility] Goal (LTG) Pt will report no more than 1 FRAUSTO a week. 06/06-no change LTG Duration 06/06/23 strength Impairment 5x sit to stand: 20 sec; 30 sec sit to stand: 7 Short Term Goal (STG) Pt will improve 5x sit to stand to less than 15 sec to show improved LE strength and dec risk for falls. STG Duration achieved to 13 sec Websphere Commerce Consultant Goal (LTG) Pt will improve 30 sec sit to stand to at least 10 w/o dizziness after as appropriate w/age related norms in order to show improved LE strength/ activity tolerance and dec risk for falls. LTG Duration achieved to 12 06/06 balance Impairment DGI: 04/06 FGA: Short Term Goal (STG) Pt will improve DGI to at least to show improved balance and dec risk for falls . STG Duration achieved [facility] Goal (LTG) Pt will improve DGI to at least and FGA to at least to show improved balance and dec risk for falls . 06/06-achieved on FGA; on DGI LTG Duration 08/28 Assessment Summary Assessment Pt is making excellent progress w/PT and cont to advance her ease with activities at home. She has improved balance overall showing dec fall risk and improved LE strength. She would benefit from cont PT to work on balance, functional activties, and LE strength and dec vestibular symptoms and improve posture. Physical Therapy Plan Frequency and Duration Frequency of Treatment 1x/Week Duration of treatment (weeks) 12 Plan of Care Start Date 06/06/23 Plan of Care End Date 08/29/23 Therapeutic Interventions Therapeutic Interventions Balance Training,Canalithic Repositioning,Coordination Training,Gait Training,Home Exercise Program,Joint Mobilizations,Manual Therapy, Neuromuscular Re-education, Orthotic/Prosthetic Management ,Patient/Caregiver Education, Self-Care/Home Management,Soft Tissue Mobilization,Taping, Therapeutic Activities, Therapeutic Exercises, Vestibular Rehabilitation Modalities Cold Pack/Ice Massage,Hot Packs Next Visit Focus/Plan Next Note Type Treatment Note Next Visit Plan cont to advance vestibular rehab as tolerated; advance balance and LE strengthening as tolerated. Improve pelvis alignment to improve pt comfort w/wt acceptance w/gait
--- NOTE | 2023-06-06 15:08 | PT.OPPOC ---
Physical, Occupational & Speech Therapy At [facility] Current Diagnoses Other disorders of vestibular function, left ear (06/06/23) Muscle weakness (generalized) (06/06/23) Difficulty in walking, not elsewhere classified (06/06/23) Unsteadiness on feet (06/06/23) Abnormal posture (06/06/23) Visit Care Team Role Provider Type Irasema Kemp DO Family Provider Physician Primary Care Provider Specialty: Medical Address: [address] [place] [address], [address] [place] [address], [id number] Email: [email or web address] Janes Milligan MD Attending Provider Physician Referring Provider Specialty: Ear, Nose, Throat Address: [address] [place] [address], [id number] Email: [email or web address] Plan Of Care PT-OP-T Assessment and Plan Start: 03/13/23 07:53 Freq: Status: Active Protocol: Document 06/06/23 13:53 [facility] (Rec: 06/06/23 15:07 [facility] [id number]) Physical Therapy Assessment Goals DVA Impairment 5 line degradation during DVA testing [facility] Goal (LTG) Pt to demonstrate improved dynamic visual acuity by scoring three or few line degradation during DVA testing 06/06-n/t d/t not w/vestib PT today LTG Duration 08/27 activities Prototype Sewer Goal (LTG) Pt will report greater ease of three dimensional map modeler/ADLs like showering w/feeling of inc stability and less c/o weakness and fatigue 06/06-still needs rest but is getting better; shower is easier LTG Duration 08/27 pain Short Term Goal (STG) Pt will report no hip pain w/ walk, allowing her to start to inc distance. 06/06-no hip pain but has not inc STG Duration 05/12/23 Prototype Sewer Goal (LTG) Pt will report no more than 1 FRAUSTO a week. 06/06-no change LTG Duration 06/06/23 strength Impairment 5x sit to stand: 20 sec; 30 sec sit to stand: 7 Short Term Goal (STG) Pt will improve 5x sit to stand to less than 15 sec to show improved LE strength and dec risk for falls. STG Duration achieved to 13 sec [facility] Goal (LTG) Pt will improve 30 sec sit to stand to at least 10 w/o dizziness after as appropriate w/age related norms in order to show improved LE strength/ activity tolerance and dec risk for falls. LTG Duration achieved to 12 06/06 balance Impairment DGI: 04/06 FGA: Short Term Goal (STG) Pt will improve DGI to at least to show improved balance and dec risk for falls . STG Duration achieved Prototype Sewer Goal (LTG) Pt will improve DGI to at least and FGA to at least to show improved balance and dec risk for falls . 06/06-achieved on FGA; on DGI LTG Duration 08/28 Assessment Summary Assessment Pt is making excellent progress w/PT and cont to advance her ease with activities at home. She has improved balance overall showing dec fall risk and improved LE strength. She would benefit from cont PT to work on balance, functional activties, and LE strength and dec vestibular symptoms and improve posture. Physical Therapy Plan Frequency and Duration Frequency of Treatment 1x/Week Duration of treatment (weeks) 12 Plan of Care Start Date 06/06/23 Plan of Care End Date 08/29/23 Therapeutic Interventions Therapeutic Interventions Balance Training,Canalithic Repositioning,Coordination Training,Gait Training,Home Exercise Program,Joint Mobilizations,Manual Therapy, Neuromuscular Re-education, Orthotic/Prosthetic Management ,Patient/Caregiver Education, Self-Care/Home Management,Soft Tissue Mobilization,Taping, Therapeutic Activities, Therapeutic Exercises, Vestibular Rehabilitation Modalities Cold Pack/Ice Massage,Hot Packs Next Visit Focus/Plan Next Note Type Treatment Note Next Visit Plan cont to advance vestibular rehab as tolerated; advance balance and LE strengthening as tolerated. Improve pelvis alignment to improve pt comfort w/wt acceptance w/gait Plan of Care Dates Plan of Care Start Date 06/06/23 Plan of Care End Date 08/29/23 Electronically Signed by: Kristal Milligan, PT 06/06/23 3624 If you are in agreement with this Plan of Care, please return a signed and dated copy. I have reviewed this Plan of Care and certify that the skilled therapy services above are required to meet the patient?s needs. Physician Signature Date Printed Name and Credentials Clinical Instructor Signature Printed Name and Credentials
--- NOTE | 2023-06-13 11:58 | PT.OTN ---
Current Diagnoses Other disorders of vestibular function, left ear (06/13/23) Muscle weakness (generalized) (06/13/23) Difficulty in walking, not elsewhere classified (06/13/23) Unsteadiness on feet (06/13/23) Abnormal posture (06/13/23) Physical Therapy Treatment Note PT-OP-A Visit Information Start: 03/13/23 07:53 Freq: Status: Active Protocol: Document 06/13/23 11:15 [facility] (Rec: 06/13/23 11:58 DC[facility] [id number]) Out-Patient Physical Therapy Visit Information Visit Information Visit Type Treatment Note Visit Note 06/23 Visit Start Time 11:15 Visit Stop Time 12:00 Visit Number 11 Number of MANAGER RESEARCH Visits 0 PT-OP-B Current Condition Start: 03/13/23 07:53 Freq: Status: Active Protocol: Document 03/14/23 09:02 [facility] (Rec: 03/14/23 11:12 [facility] [id number]) Current Condition History of Current Condition History of Current Condition Pt reports her main issue is her balance. Pt had nausea/ vomitting/dizziness/FRAUSTO starting end of May and was diagnosed w/vestibular neuritis. She feels like when she turns her head, it feels like her eyes and head are not in sync. She doesn't feel secure anymore. This has just been since May. Pt had COVID last summer. She saw a ocean fishing guide and char conveyor tender etc. She is having some symtoms re: this. She used to go for very long walks like [employer] and couldn't do it anymore. She got too short of breath. They did tons of tests . She was seeing Jessica Levine PT in [place] and transfering here. She has been going for a few months. She has been focusing on the balance and her hip issue. She has been doing some eye exercsies and some head/neck work. 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 She still goes for a walk and uses a cane now and goes about 2 miles and it is all flat 3x week and doesn't walk alone. They are better than they were in May but still frequently. She used to wake up with them but now they are just random. Most of the time they come/go during the day. Typically about every day that last under an hr and sometimes gets more than 1 a day. Notes FRAUSTO are in frontal region and orbital. When first started, they were pretty constant. Hip pain is more mild and it comes/goes and has been present for the past 1 year. It bothers her when walking longer and turning over in bed . Pain in ant lat hip and sometimes shoots down lat thigh. She does live alone and wears a life alert all the time. Pt has been so weak and feels really weak and occ in the shower needs to sit down d /t feeling winded or weak/ tired in legs) Treatment Goals Patient/Caregiver Goals Have better balance, not feel so insecure about doing physical activities herself. Feel more secure about taking care of shaft headman (get in/out of shower(walk in), change a lightbulb etc) PT-OP-C Subjective Start: 03/13/23 07:53 Freq: Status: Active Protocol: Document 06/13/23 11:15 [facility] (Rec: 06/13/23 11:58 [facility] [id number]) OP-PT Subjective Patient Comments Patient Comments My balance has really been better, except for the past few days, I've been really off . PT-OP-E Functional Tests Start: 03/14/23 13:42 Freq: Status: Active Protocol: Document 06/06/23 13:53 [facility] (Rec: 06/06/23 15:07 [facility] [id number]) Functional Tests 30 Second Sit to Stand Test Score 12 Dynamic Gait Index (DGI) Score 18/24 Five Times Sit to Stand Test Score 13 sec Functional Gait Assessment Score 22/30 PT-OP-F Manual Assessment Start: 03/13/23 07:53 Freq: Status: Active Protocol: Document 03/14/23 09:02 [facility] (Rec: 03/14/23 13:50 [facility] [id number]) Manual Assessments Other Manual Assessments Other Manual Assessments 162/78 BP tested after sit to stand test PT-OP-G Mobility & Gait Start: 03/13/23 07:53 Freq: Status: Active Protocol: Document 03/14/23 09:02 [facility] (Rec: 03/14/23 11:12 [facility] [id number]) OP Gait Assessment Comments Gait Comments Pt has dec stance time on LLE and keeps arms to side for balance, lat leaning w/gait PT-OP-K Range of Motion Start: 03/13/23 07:53 Freq: Status: Active Protocol: Document 03/14/23 09:02 [facility] (Rec: 03/14/23 11:12 [facility] [id number]) Cervical Spine Range of Motion Cervical Spine Active Percentage Flexion 60 Extension 40 Rotation Left 50 Rotation Right 50 Lateral Flexion Left 40 Lateral Flexion Right 25 ROM Limitations Soft Tissue Tightness,Pain PT-OP-O Vestibular Start: 03/27/23 10:32 Freq: Status: Active Protocol: Document 03/27/23 10:34 [facility] (Rec: 03/27/23 14:07 [facility] [id number]) Vestibular Assessment Auditory Tests Mittal Test Within normal limits Air Conduction Results Left Greater Visual Testing Smooth Pursuits Horizontal Difficulty following target Smooth Pursuits Vertical Difficulty following target Saccades Horizontal Increased symptoms Heave Test Positive L Thrust Head Positive L Convergence Test 43 cm DVA (Line Degradation) 5 Spontaneous Nystagmus Negative Vestibular Function Tests Fukuda Test Impaired Comments Vestibular Comments Fukuda difficult to grade, as pt was so unsteady, she was unable to perform full marching motion, and opened her eyes multiple times. PT-OP-Q Treatments Start: 03/13/23 07:53 Freq: Status: Active Protocol: Document 06/13/23 11:15 [facility] (Rec: 06/13/23 11:58 [facility] [id number]) Gym Equipment Shuttle Balance Red Details WBOS (X1, EC) Neuro Re-Education Treatment Balance Activities Dynamic Ambulation Details Pearson Ambulation Comments Horizontal/Vertical head turns (100 bpm) Retro Ambulation Ambulating with eyes closed Tandem Ambulation hurdles Equipment 6 hurdles Comments 1. fwd over hurdles recip x4 2. sidepstep over hurdles x2 B Tandem Stance Details Tandem Stance Equipment // bars SLS Details SLS Equipment // bars foam Details Foam stance NBOS Surface Blue foam PT-OP-T Assessment and Plan Start: 03/13/23 07:53 Freq: Status: Active Protocol: Document 06/13/23 11:15 [facility] (Rec: 06/13/23 11:58 [facility] [id number]) Physical Therapy Assessment Goals DVA Impairment 5 line degradation during DVA testing Felt Cementer Goal (LTG) Pt to demonstrate improved dynamic visual acuity by scoring three or few line degradation during DVA testing 06/06-n/t d/t not w/vestib PT today LTG Duration 08/27 activities Felt Cementer Goal (LTG) Pt will report greater ease of shaft headman/ADLs like showering w/feeling of inc stability and less c/o weakness and fatigue 06/06-still needs rest but is getting better; shower is easier LTG Duration 08/27 pain Short Term Goal (STG) Pt will report no hip pain w/ walk, allowing her to start to inc distance. 06/06-no hip pain but has not inc STG Duration 05/12/23 Mcfp Goal (LTG) Pt will report no more than 1 FRAUSTO a week. 06/06-no change LTG Duration 06/06/23 strength Impairment 5x sit to stand: 20 sec; 30 sec sit to stand: 7 Short Term Goal (STG) Pt will improve 5x sit to stand to less than 15 sec to show improved LE strength and dec risk for falls. STG Duration achieved to 13 sec Mcfp Goal (LTG) Pt will improve 30 sec sit to stand to at least 10 w/o dizziness after as appropriate w/age related norms in order to show improved LE strength/ activity tolerance and dec risk for falls. LTG Duration achieved to 12 06/06 balance Impairment DGI: 04/06 FGA: Short Term Goal (STG) Pt will improve DGI to at least 15/ to show improved balance and dec risk for falls . STG Duration achieved Mcfp Goal (LTG) Pt will improve DGI to at least / and FGA to at least to show improved balance and dec risk for falls . 06/06-achieved on FGA; on DGI LTG Duration 08/28 Assessment Summary Assessment Increased difficulty today with head turns, retro walking , and tandem stance. Pt appeared a little more fatigued today, struggling more to sleep last night. Physical Therapy Plan Frequency and Duration Frequency of Treatment 1x/Week Duration of treatment (weeks) 12 Plan of Care Start Date 06/06/23 Plan of Care End Date 08/29/23 Therapeutic Interventions Therapeutic Interventions Balance Training,Canalithic Repositioning,Coordination Training,Gait Training,Home Exercise Program,Joint Mobilizations,Manual Therapy, Neuromuscular Re-education, Orthotic/Prosthetic Management ,Patient/Caregiver Education, Self-Care/Home Management,Soft Tissue Mobilization,Taping, Therapeutic Activities, Therapeutic Exercises, Vestibular Rehabilitation Modalities Cold Pack/Ice Massage,Hot Packs Next Visit Focus/Plan Next Note Type Treatment Note Next Visit Plan cont to advance vestibular rehab as tolerated; advance balance and LE strengthening as tolerated. Improve pelvis alignment to improve pt comfort w/wt acceptance w/gait
--- NOTE | 2023-06-18 11:17 | PT.OTN ---
Current Diagnoses Other disorders of vestibular function, left ear (06/18/23) Muscle weakness (generalized) (06/18/23) Difficulty in walking, not elsewhere classified (06/18/23) Unsteadiness on feet (06/18/23) Abnormal posture (06/18/23) Physical Therapy Treatment Note PT-OP-A Visit Information Start: 03/13/23 07:53 Freq: Status: Active Protocol: Document 06/18/23 10:37 [facility] (Rec: 06/18/23 11:17 [facility] [id number]) Out-Patient Physical Therapy Visit Information Visit Information Visit Type Treatment Note Visit Note 07/21 Visit Start Time 10:37 Visit Stop Time 11:16 Visit Number 12 Number of JANITOR HELPER Visits 0 PT-OP-B Current Condition Start: 03/13/23 07:53 Freq: Status: Active Protocol: Document 03/14/23 09:02 [facility] (Rec: 03/14/23 11:12 [facility] [id number]) Current Condition History of Current Condition History of Current Condition Pt reports her main issue is her balance. Pt had nausea/ vomitting/dizziness/FRAUSTO starting end of May and was diagnosed w/vestibular neuritis. She feels like when she turns her head, it feels like her eyes and head are not in sync. She doesn't feel secure anymore. This has just been since May. Pt had COVID last summer. She saw a shift boss and academic affairs specialist etc. She is having some symtoms re: this. She used to go for very long walks like [place] and couldn't do it anymore. She got too short of breath. They did tons of tests . She was seeing Jessica Levine PT in [place] and transfering here. She has been going for a few months. She has been focusing on the balance and her hip issue. She has been doing some eye exercsies and some head/neck work. 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 She still goes for a walk and uses a cane now and goes about 2 miles and it is all flat 3x week and doesn't walk alone. They are better than they were in May but still frequently. She used to wake up with them but now they are just random. Most of the time they come/go during the day. Typically about every day that last under an hr and sometimes gets more than 1 a day. Notes FRAUSTO are in frontal region and orbital. When first started, they were pretty constant. Hip pain is more mild and it comes/goes and has been present for the past 1 year. It bothers her when walking longer and turning over in bed . Pain in ant lat hip and sometimes shoots down lat thigh. She does live alone and wears a life alert all the time. Pt has been so weak and feels really weak and occ in the shower needs to sit down d /t feeling winded or weak/ tired in legs) Treatment Goals Patient/Caregiver Goals Have better balance, not feel so insecure about doing physical activities herself. Feel more secure about taking care of plant guide (get in/out of shower(walk in), change a lightbulb etc) PT-OP-C Subjective Start: 03/13/23 07:53 Freq: Status: Active Protocol: Document 06/18/23 10:37 [facility] (Rec: 06/18/23 11:17 [facility] [id number]) OP-PT Subjective Patient Comments Patient Comments Pt reports she had more difficulty last session. doing well w/HEP PT-OP-E Functional Tests Start: 03/14/23 13:42 Freq: Status: Active Protocol: Document 06/06/23 13:53 [facility] (Rec: 06/06/23 15:07 [facility] [id number]) Functional Tests 30 Second Sit to Stand Test Score 12 Dynamic Gait Index (DGI) Score 18/24 Five Times Sit to Stand Test Score 13 sec Functional Gait Assessment Score 22/30 PT-OP-F Manual Assessment Start: 03/13/23 07:53 Freq: Status: Active Protocol: Document 03/14/23 09:02 [facility] (Rec: 03/14/23 13:50 [facility] [id number]) Manual Assessments Other Manual Assessments Other Manual Assessments 162/78 BP tested after sit to stand test PT-OP-G Mobility & Gait Start: 03/13/23 07:53 Freq: Status: Active Protocol: Document 03/14/23 09:02 [facility] (Rec: 03/14/23 11:12 [facility] [id number]) OP Gait Assessment Comments Gait Comments Pt has dec stance time on LLE and keeps arms to side for balance, lat leaning w/gait PT-OP-K Range of Motion Start: 03/13/23 07:53 Freq: Status: Active Protocol: Document 03/14/23 09:02 [facility] (Rec: 03/14/23 11:12 [facility] [id number]) Cervical Spine Range of Motion Cervical Spine Active Percentage Flexion 60 Extension 40 Rotation Left 50 Rotation Right 50 Lateral Flexion Left 40 Lateral Flexion Right 25 ROM Limitations Soft Tissue Tightness,Pain PT-OP-O Vestibular Start: 03/27/23 10:32 Freq: Status: Active Protocol: Document 03/27/23 10:34 [facility] (Rec: 03/27/23 14:07 [facility] [id number]) Vestibular Assessment Auditory Tests Mittal Test Within normal limits Air Conduction Results Left Greater Visual Testing Smooth Pursuits Horizontal Difficulty following target Smooth Pursuits Vertical Difficulty following target Saccades Horizontal Increased symptoms Heave Test Positive L Thrust Head Positive L Convergence Test 43 cm DVA (Line Degradation) 5 Spontaneous Nystagmus Negative Vestibular Function Tests Fukuda Test Impaired Comments Vestibular Comments Fukuda difficult to grade, as pt was so unsteady, she was unable to perform full marching motion, and opened her eyes multiple times. PT-OP-Q Treatments Start: 03/13/23 07:53 Freq: Status: Active Protocol: Document 06/18/23 10:37 [facility] (Rec: 06/18/23 11:17 [facility] [id number]) Therapeutic Exercises Standing Exercises March Side bilateral Equipment Used Lvl 1 Reps/Minutes 10 ea stretch Standing Exercise Name into L pelvic shear at wall Reps/Minutes [id number] step up Standing Exercise Name to SL w/opp LE march Side bilateral Equipment Used 6 in w/ rail Reps/Minutes 10 sidesteps Side bilateral Equipment Used lvl 1 Reps/Minutes 15ft ea Therapeutic Activity Therapeutic Activity wt acceptance Reps/Minutes 2 min Comments PT traction into LLE for wt acceptance in sitting - improved SLS after posture Comments 8 min: use of mirror for pt awareness of pelvic shear and owkring on wt shift side to side and working on ribcage position and pelvis posiion-pt able to imrpove Neuro Re-Education Treatment Balance Activities hurdles Equipment 6 hurdles Comments 1. fwd over hurdles recip x4 2. sidepstep over hurdles x2 B SLS Details SLS Equipment // bars foam Details Foam stance NBOS & staggered stance Surface Blue foam Reps/Duration head turns and EC trials PT-OP-T Assessment and Plan Start: 03/13/23 07:53 Freq: Status: Active Protocol: Document 06/18/23 10:37 [facility] (Rec: 06/18/23 11:17 [facility] [id number]) Physical Therapy Assessment Goals DVA Impairment 5 line degradation during DVA testing Oil And Gas Specialist Goal (LTG) Pt to demonstrate improved dynamic visual acuity by scoring three or few line degradation during DVA testing 06/06-n/t d/t not w/vestib PT today LTG Duration 08/27 activities Oil And Gas Specialist Goal (LTG) Pt will report greater ease of plant guide/ADLs like showering w/feeling of inc stability and less c/o weakness and fatigue 06/06-still needs rest but is getting better; shower is easier LTG Duration 08/27 pain Short Term Goal (STG) Pt will report no hip pain w/ walk, allowing her to start to inc distance. 06/06-no hip pain but has not inc STG Duration 05/12/23 Oil And Gas Specialist Goal (LTG) Pt will report no more than 1 FRAUSTO a week. 06/06-no change LTG Duration 06/06/23 strength Impairment 5x sit to stand: 20 sec; 30 sec sit to stand: 7 Short Term Goal (STG) Pt will improve 5x sit to stand to less than 15 sec to show improved LE strength and dec risk for falls. STG Duration achieved to 13 sec Oil And Gas Specialist Goal (LTG) Pt will improve 30 sec sit to stand to at least 10 w/o dizziness after as appropriate w/age related norms in order to show improved LE strength/ activity tolerance and dec risk for falls. LTG Duration achieved to 12 06/06 balance Impairment DGI: 04/06 FGA: Short Term Goal (STG) Pt will improve DGI to at least 15 to show improved balance and dec risk for falls . STG Duration achieved Oil And Gas Specialist Goal (LTG) Pt will improve DGI to at least and FGA to at least to show improved balance and dec risk for falls . 06/06-achieved on FGA; on DGI LTG Duration 08/28 Assessment Summary Assessment Pt did well with exercises and showing improvement w/ strength and balance exercises still challenge dby them. Has difficulty w/LLE wt acceptance likely d/t pelvic shear. Physical Therapy Plan Frequency and Duration Frequency of Treatment 1x/Week Duration of treatment (weeks) 12 Plan of Care Start Date 06/06/23 Plan of Care End Date 08/29/23 Next Visit Focus/Plan Next Note Type Treatment Note Next Visit Plan cont to advance vestibular rehab as tolerated; advance balance and LE strengthening as tolerated. Improve pelvis alignment to improve pt comfort w/wt acceptance w/gait
--- NOTE | 2023-06-26 11:20 | PT.OTN ---
Current Diagnoses Other disorders of vestibular function, left ear (06/26/23) Muscle weakness (generalized) (06/26/23) Difficulty in walking, not elsewhere classified (06/26/23) Unsteadiness on feet (06/26/23) Abnormal posture (06/26/23) Physical Therapy Treatment Note PT-OP-A Visit Information Start: 03/13/23 07:53 Freq: Status: Active Protocol: Document 06/26/23 10:35 [facility] (Rec: 06/26/23 11:20 [facility] [id number]) Out-Patient Physical Therapy Visit Information Visit Information Visit Type Treatment Note Visit Note 08/21 Visit Start Time 10:36 Visit Stop Time 11:15 Visit Number 13 Number of SAFETY RELIEF VALVE TECHNICIAN Visits 0 PT-OP-B Current Condition Start: 03/13/23 07:53 Freq: Status: Active Protocol: Document 03/14/23 09:02 [facility] (Rec: 03/14/23 11:12 [facility] [id number]) Current Condition History of Current Condition History of Current Condition Pt reports her main issue is her balance. Pt had nausea/ vomitting/dizziness/FRAUSTO starting end of May and was diagnosed w/vestibular neuritis. She feels like when she turns her head, it feels like her eyes and head are not in sync. She doesn't feel secure anymore. This has just been since May. Pt had COVID last summer. She saw a sheet rocker and medical sonographer etc. She is having some symtoms re: this. She used to go for very long walks like [employer] and couldn't do it anymore. She got too short of breath. They did tons of tests . She was seeing Jessica Levine PT in [place] and transfering here. She has been going for a few months. She has been focusing on the balance and her hip issue. She has been doing some eye exercsies and some head/neck work. 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 She still goes for a walk and uses a cane now and goes about 2 miles and it is all flat 3x week and doesn't walk alone. They are better than they were in May but still frequently. She used to wake up with them but now they are just random. Most of the time they come/go during the day. Typically about every day that last under an hr and sometimes gets more than 1 a day. Notes FRAUSTO are in frontal region and orbital. When first started, they were pretty constant. Hip pain is more mild and it comes/goes and has been present for the past 1 year. It bothers her when walking longer and turning over in bed . Pain in ant lat hip and sometimes shoots down lat thigh. She does live alone and wears a life alert all the time. Pt has been so weak and feels really weak and occ in the shower needs to sit down d /t feeling winded or weak/ tired in legs) Treatment Goals Patient/Caregiver Goals Have better balance, not feel so insecure about doing physical activities herself. Feel more secure about taking care of systems accountant (get in/out of shower(walk in), change a lightbulb etc) PT-OP-C Subjective Start: 03/13/23 07:53 Freq: Status: Active Protocol: Document 06/26/23 10:35 [facility] (Rec: 06/26/23 11:20 [facility] [id number]) OP-PT Subjective Patient Comments Patient Comments Pt reports she gets a little bit off balance now and then mostly during ching chi. Haven't walked d/t weather. Exercises have been good. Vestibular exercises make her dizzy and she is dizzy for about 5 min after. Patient Reported Progress Improving Patient Questionnaires ABC- Activity Specific Balance Confidence Scale ABC Score 41.25 PT-OP-E Functional Tests Start: 03/14/23 13:42 Freq: Status: Active Protocol: Document 06/06/23 13:53 [facility] (Rec: 06/06/23 15:07 [facility] [id number]) Functional Tests 30 Second Sit to Stand Test Score 12 Dynamic Gait Index (DGI) Score 18/24 Five Times Sit to Stand Test Score 13 sec Functional Gait Assessment Score 22/30 PT-OP-F Manual Assessment Start: 03/13/23 07:53 Freq: Status: Active Protocol: Document 03/14/23 09:02 [facility] (Rec: 03/14/23 13:50 [facility] [id number]) Manual Assessments Other Manual Assessments Other Manual Assessments 162/78 BP tested after sit to stand test PT-OP-G Mobility & Gait Start: 03/13/23 07:53 Freq: Status: Active Protocol: Document 03/14/23 09:02 [facility] (Rec: 03/14/23 11:12 [facility] [id number]) OP Gait Assessment Comments Gait Comments Pt has dec stance time on LLE and keeps arms to side for balance, lat leaning w/gait PT-OP-K Range of Motion Start: 03/13/23 07:53 Freq: Status: Active Protocol: Document 03/14/23 09:02 [facility] (Rec: 03/14/23 11:12 [facility] [id number]) Cervical Spine Range of Motion Cervical Spine Active Percentage Flexion 60 Extension 40 Rotation Left 50 Rotation Right 50 Lateral Flexion Left 40 Lateral Flexion Right 25 ROM Limitations Soft Tissue Tightness,Pain PT-OP-O Vestibular Start: 03/27/23 10:32 Freq: Status: Active Protocol: Document 03/27/23 10:34 [facility] (Rec: 03/27/23 14:07 [facility] [id number]) Vestibular Assessment Auditory Tests Mittal Test Within normal limits Air Conduction Results Left Greater Visual Testing Smooth Pursuits Horizontal Difficulty following target Smooth Pursuits Vertical Difficulty following target Saccades Horizontal Increased symptoms Heave Test Positive L Thrust Head Positive L Convergence Test 43 cm DVA (Line Degradation) 5 Spontaneous Nystagmus Negative Vestibular Function Tests Fukuda Test Impaired Comments Vestibular Comments Fukuda difficult to grade, as pt was so unsteady, she was unable to perform full marching motion, and opened her eyes multiple times. PT-OP-Q Treatments Start: 03/13/23 07:53 Freq: Status: Active Protocol: Document 06/26/23 10:35 [facility] (Rec: 06/26/23 11:20 [facility] [id number]) Gym Equipment Shuttle Balance Red Details WBOS (X1, EC) Comments fwd: WBOS & NBOS Therapeutic Ball seated Ball Size/Color green Body Position seated Reps/Duration 15 ea Comments 1. fwd/back wt shifts 2. side to side wt shifts 3. marching w/cues for posture Sport Cord backwards Exercise Details back walk w/eccentric fwd Reps/Duration 10 fwd Exercise Details fwd walk w/eccentric back Reps/Duration 10 Therapeutic Exercises Sitting Exercises SB Sitting Exercise Name to R w/opp UE overhead Reps/Minutes 3x20 sec Standing Exercises March Standing Exercise Name DF w/march Side bilateral Equipment Used Lvl 1 at feet Reps/Minutes 10 ea stretch Standing Exercise Name into R pelvic shear at wall Reps/Minutes 10 sec x5 step up Standing Exercise Name 1.to SL w/opp LE july 2. side step up/down Side bilateral Equipment Used 6 in w/ rail prn Reps/Minutes 10 ea sidesteps Side bilateral Equipment Used lvl 1 Reps/Minutes 15ft ea hip hike Side bilateral Equipment Used step w/rail Reps/Minutes 5 Other Exercises sit to stand testing Reps/Minutes 2x Therapeutic Activity Therapeutic Activity wt acceptance Reps/Minutes 2 min Comments PT traction into LLE for wt acceptance in sitting - improved SLS after posture Comments 8 min: use of mirror for pt awareness of pelvic shear and owkring on wt shift side to side and working on ribcage position and pelvis posiion-pt able to imrpove Manual Therapy Treatment Soft Tissue Mobilization QL Body Location L Mobilization Type Rolling Intensity/Depth Moderate Body Position Sidelying Comments w/ post dep Joint Mobilizations ribs Comments SB to R (R) ribs FM w/B rotations innominate Comments L caudal and add FM hip Comments L Lat gapping FM and inf glide FM; attemped free the ball for ER but uncomfortable so stopped Neuro Re-Education Treatment Balance Activities testing Comments FGA and DGI Dynamic Ambulation Details Pearson Ambulation Comments Retro Ambulation x50ft Ambulating with eyes closed x50ft Tandem Ambulation 2x20ft hurdles Details hand on rail down to 1 finger Surface firm Equipment 6 hurdles Comments 1. fwd over hurdles recip x4 2. sidepstep over hurdles x2 B Tandem Stance Details Tandem Stance Equipment // bars SLS Details SLS Equipment // bars foam Details Foam stance NBOS & staggered stance Surface Blue foam Reps/Duration head turns and EC trials Comments Fwd, Tandem Vestibular Rehabilitation Visual Conflict Details NBOS on Blue Foam Background [place] Print board X2 Viewing Details Target and head moving in opposite direction Distance From Target Arm's length Speed as tolerated Position seated X1 Viewing Details Static target with head turns Speed as tolerated Position Pearson walking VOR Retraining Details Target and head moving together Distance From Target Arm's length Speed as tolerated Position seated Other Activities PNF Details L pelvis Reps/Duration 14 min Comments 1. ant eleavtion and post dep rhythmic initiation w/ prolonged holds progressed to COI Self-Care/Home Management Treatment Education Other Education BP at start of session: 184/80 Activities Self-Care/Home Management Activities 5 min: sleep education w/BEAR training w/use of pillow btwn legs, under head and under top arm and towel under side. PT-OP-T Assessment and Plan Start: 03/13/23 07:53 Freq: Status: Active Protocol: Document 06/26/23 10:35 [facility] (Rec: 06/26/23 11:20 [facility] [id number]) Physical Therapy Assessment Rehab Potential Rehabilitation Potential Good Evaluation Complexity Number of Personal Factors/Comorbidities 3 or More Number of Body Systems Impaired 4 or More Clinical Presentation at Evaluation Unstable Impairments Impairments Activity Tolerance,Balance, Coordination,Functional Activities,Functional Mobility ,Gait,Pain,Posture,ROM,Soft Tissue Mobility,Strength, Transfers,Vestibular Goals DVA Impairment 5 line degradation during DVA testing [facility] Goal (LTG) Pt to demonstrate improved dynamic visual acuity by scoring three or few line degradation during DVA testing 06/06-n/t d/t not w/vestib PT today LTG Duration 08/27 activities Supervisor Malted Milk Goal (LTG) Pt will report greater ease of systems accountant/ADLs like showering w/feeling of inc stability and less c/o weakness and fatigue 06/06-still needs rest but is getting better; shower is easier LTG Duration 08/27 pain Short Term Goal (STG) Pt will report no hip pain w/ walk, allowing her to start to inc distance. 06/06-no hip pain but has not inc STG Duration 05/12/23 Supervisor Malted Milk Goal (LTG) Pt will report no more than 1 FRAUSTO a week. 06/06-no change LTG Duration 06/06/23 strength Impairment 5x sit to stand: 20 sec; 30 sec sit to stand: 7 Short Term Goal (STG) Pt will improve 5x sit to stand to less than 15 sec to show improved LE strength and dec risk for falls. STG Duration achieved to 13 sec Supervisor Malted Milk Goal (LTG) Pt will improve 30 sec sit to stand to at least 10 w/o dizziness after as appropriate w/age related norms in order to show improved LE strength/ activity tolerance and dec risk for falls. LTG Duration achieved to 12 06/06 balance Impairment DGI: 04/06 FGA: Short Term Goal (STG) Pt will improve DGI to at least to show improved balance and dec risk for falls . STG Duration achieved [facility] Goal (LTG) Pt will improve DGI to at least and FGA to at least to show improved balance and dec risk for falls . 06/06-achieved on FGA; on DGI LTG Duration 08/28 Assessment Summary Assessment Pt did well with balance tasks and is overall showing improvement w/performance of exercises. She was fatigued at end and did have more instances of loss of balance. Physical Therapy Plan Frequency and Duration Frequency of Treatment 1x/Week Duration of treatment (weeks) 12 Plan of Care Start Date 06/06/23 Plan of Care End Date 08/29/23 Therapeutic Interventions Therapeutic Interventions Balance Training,Canalithic Repositioning,Coordination Training,Gait Training,Home Exercise Program,Joint Mobilizations,Manual Therapy, Neuromuscular Re-education, Orthotic/Prosthetic Management ,Patient/Caregiver Education, Self-Care/Home Management,Soft Tissue Mobilization,Taping, Therapeutic Activities, Therapeutic Exercises, Vestibular Rehabilitation Modalities Cold Pack/Ice Massage,Hot Packs Next Visit Focus/Plan Next Note Type Treatment Note Next Visit Plan cont to advance vestibular rehab as tolerated; advance balance and LE strengthening as tolerated. Improve pelvis alignment to improve pt comfort w/wt acceptance w/gait
--- NOTE | 2023-06-26 16:20 | PT.OTN ---
Current Diagnoses Other disorders of vestibular function, left ear (07/11/23) Muscle weakness (generalized) (07/11/23) Difficulty in walking, not elsewhere classified (07/11/23) Unsteadiness on feet (07/11/23) Abnormal posture (07/11/23) Physical Therapy Treatment Note PT-OP-A Visit Information Start: 03/13/23 07:53 Freq: Status: Active Protocol: Document 07/11/23 13:20 [facility] (Rec: 06/26/23 11:20 [facility] [id number]) Out-Patient Physical Therapy Visit Information Visit Information Visit Type Treatment Note Visit Note 08/21 Visit Start Time 10:36 Visit Stop Time 11:15 Visit Number 13 Number of VIDEOTAPE OPERATOR Visits 0 PT-OP-B Current Condition Start: 03/13/23 07:53 Freq: Status: Active Protocol: Document 03/14/23 09:02 [facility] (Rec: 03/14/23 11:12 [facility] [id number]) Current Condition History of Current Condition History of Current Condition Pt reports her main issue is her balance. Pt had nausea/ vomitting/dizziness/FRAUSTO starting end of May and was diagnosed w/vestibular neuritis. She feels like when she turns her head, it feels like her eyes and head are not in sync. She doesn't feel secure anymore. This has just been since May. Pt had COVID last summer. She saw a swing driver and stationary boiler fireman etc. She is having some symtoms re: this. She used to go for very long walks like [employer] and couldn't do it anymore. She got too short of breath. They did tons of tests . She was seeing Jessica Levine PT in [place] and transfering here. She has been going for a few months. She has been focusing on the balance and her hip issue. She has been doing some eye exercsies and some head/neck work. 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 She still goes for a walk and uses a cane now and goes about 2 miles and it is all flat 3x week and doesn't walk alone. They are better than they were in May but still frequently. She used to wake up with them but now they are just random. Most of the time they come/go during the day. Typically about every day that last under an hr and sometimes gets more than 1 a day. Notes FRAUSTO are in frontal region and orbital. When first started, they were pretty constant. Hip pain is more mild and it comes/goes and has been present for the past 1 year. It bothers her when walking longer and turning over in bed . Pain in ant lat hip and sometimes shoots down lat thigh. She does live alone and wears a life alert all the time. Pt has been so weak and feels really weak and occ in the shower needs to sit down d /t feeling winded or weak/ tired in legs) Treatment Goals Patient/Caregiver Goals Have better balance, not feel so insecure about doing physical activities herself. Feel more secure about taking care of test center manager (get in/out of shower(walk in), change a lightbulb etc) PT-OP-C Subjective Start: 03/13/23 07:53 Freq: Status: Active Protocol: Document 07/11/23 13:20 [facility] (Rec: 06/26/23 11:20 [facility] [id number]) OP-PT Subjective Patient Comments Patient Comments Pt reports she gets a little bit off balance now and then mostly during ching chi. Haven't walked d/t weather. Exercises have been good. Vestibular exercises make her dizzy and she is dizzy for about 5 min after. Patient Reported Progress Improving Patient Questionnaires ABC- Activity Specific Balance Confidence Scale ABC Score 41.25 PT-OP-E Functional Tests Start: 03/14/23 13:42 Freq: Status: Active Protocol: Document 06/06/23 13:53 [facility] (Rec: 06/06/23 15:07 [facility] [id number]) Functional Tests 30 Second Sit to Stand Test Score 12 Dynamic Gait Index (DGI) Score 18/24 Five Times Sit to Stand Test Score 13 sec Functional Gait Assessment Score 22/30 PT-OP-F Manual Assessment Start: 03/13/23 07:53 Freq: Status: Active Protocol: Document 03/14/23 09:02 [facility] (Rec: 03/14/23 13:50 [facility] [id number]) Manual Assessments Other Manual Assessments Other Manual Assessments 162/78 BP tested after sit to stand test PT-OP-G Mobility & Gait Start: 03/13/23 07:53 Freq: Status: Active Protocol: Document 03/14/23 09:02 [facility] (Rec: 03/14/23 11:12 [facility] [id number]) OP Gait Assessment Comments Gait Comments Pt has dec stance time on LLE and keeps arms to side for balance, lat leaning w/gait PT-OP-K Range of Motion Start: 03/13/23 07:53 Freq: Status: Active Protocol: Document 03/14/23 09:02 [facility] (Rec: 03/14/23 11:12 [facility] [id number]) Cervical Spine Range of Motion Cervical Spine Active Percentage Flexion 60 Extension 40 Rotation Left 50 Rotation Right 50 Lateral Flexion Left 40 Lateral Flexion Right 25 ROM Limitations Soft Tissue Tightness,Pain PT-OP-O Vestibular Start: 03/27/23 10:32 Freq: Status: Active Protocol: Document 07/11/23 12:02 [facility] (Rec: 07/11/23 12:44 [facility] [id number]) Vestibular Assessment Visual Testing Smooth Pursuits Horizontal WNL Smooth Pursuits Vertical WNL Saccades Horizontal No increased symptoms Heave Test Positive L Thrust Head Positive L Convergence Test 10 cm DVA (Line Degradation) 5 Vestibular Function Tests Fukuda Test WNL PT-OP-Q Treatments Start: 03/13/23 07:53 Freq: Status: Active Protocol: Document 07/11/23 13:20 [facility] (Rec: 06/26/23 11:20 [facility] [id number]) Therapeutic Exercises Standing Exercises July Standing Exercise Name DF w/july Side bilateral Equipment Used Lvl 1 at feet Reps/Minutes 10 ea stretch Standing Exercise Name into R pelvic shear at wall Reps/Minutes 10 sec x5 step up Standing Exercise Name 1.to SL w/opp LE july 2. side step up/down Side bilateral Equipment Used 6 in w/ rail prn Reps/Minutes 10 ea sidesteps Side bilateral Equipment Used lvl 1 Reps/Minutes 15ft ea hip hike Side bilateral Equipment Used step w/rail Reps/Minutes 10 Neuro Re-Education Treatment Balance Activities testing Comments FGA and DGI Dynamic Ambulation Details Pearson Ambulation Comments Retro Ambulation x50ft Ambulating with eyes closed x50ft Tandem Ambulation 2x20ft hurdles Details hand on rail down to 1 finger Surface firm Equipment 6 hurdles Comments 1. fwd over hurdles recip x4 2. sidepstep over hurdles x2 B Tandem Stance Details Tandem Stance Equipment // bars SLS Details SLS Equipment // bars foam Details Foam stance NBOS & staggered stance Surface Blue foam Reps/Duration head turns and EC trials Comments Fwd, Tandem Self-Care/Home Management Treatment Education Other Education BP at start of session: 184/80 Activities Self-Care/Home Management Activities 5 min: sleep education w/BEAR training w/use of pillow btwn legs, under head and under top arm and towel under side. PT-OP-T Assessment and Plan Start: 03/13/23 07:53 Freq: Status: Active Protocol: Document 07/11/23 13:20 [facility] (Rec: 06/26/23 11:20 [facility] [id number]) Physical Therapy Assessment Rehab Potential Rehabilitation Potential Good Evaluation Complexity Number of Personal Factors/Comorbidities 3 or More Number of Body Systems Impaired 4 or More Clinical Presentation at Evaluation Unstable Impairments Impairments Activity Tolerance,Balance, Coordination,Functional Activities,Functional Mobility ,Gait,Pain,Posture,ROM,Soft Tissue Mobility,Strength, Transfers,Vestibular Goals DVA Impairment 5 line degradation during DVA testing [facility] Goal (LTG) Pt to demonstrate improved dynamic visual acuity by scoring three or few line degradation during DVA testing 06/06-n/t d/t not w/vestib PT today LTG Duration 08/27 activities Alcoholic Counselor Goal (LTG) Pt will report greater ease of test center manager/ADLs like showering w/feeling of inc stability and less c/o weakness and fatigue 06/06-still needs rest but is getting better; shower is easier LTG Duration 08/27 pain Short Term Goal (STG) Pt will report no hip pain w/ walk, allowing her to start to inc distance. 06/06-no hip pain but has not inc STG Duration 05/12/23 [facility] Goal (LTG) Pt will report no more than 1 FRAUSTO a week. 06/06-no change LTG Duration 06/06/23 strength Impairment 5x sit to stand: 20 sec; 30 sec sit to stand: 7 Short Term Goal (STG) Pt will improve 5x sit to stand to less than 15 sec to show improved LE strength and dec risk for falls. STG Duration achieved to 13 sec [facility] Goal (LTG) Pt will improve 30 sec sit to stand to at least 10 w/o dizziness after as appropriate w/age related norms in order to show improved LE strength/ activity tolerance and dec risk for falls. LTG Duration achieved to 12 06/06 balance Impairment DGI: 04/06 FGA: Short Term Goal (STG) Pt will improve DGI to at least to show improved balance and dec risk for falls . STG Duration achieved [facility] Goal (LTG) Pt will improve DGI to at least and FGA to at least to show improved balance and dec risk for falls . 06/06-achieved on FGA; on DGI LTG Duration 08/28 Assessment Summary Assessment Pt did well with balance tasks and is overall showing improvement w/performance of exercises. She was fatigued at end and did have more instances of loss of balance. Physical Therapy Plan Frequency and Duration Frequency of Treatment 1x/Week Duration of treatment (weeks) 12 Plan of Care Start Date 06/06/23 Plan of Care End Date 08/29/23 Therapeutic Interventions Therapeutic Interventions Balance Training,Canalithic Repositioning,Coordination Training,Gait Training,Home Exercise Program,Joint Mobilizations,Manual Therapy, Neuromuscular Re-education, Orthotic/Prosthetic Management ,Patient/Caregiver Education, Self-Care/Home Management,Soft Tissue Mobilization,Taping, Therapeutic Activities, Therapeutic Exercises, Vestibular Rehabilitation Modalities Cold Pack/Ice Massage,Hot Packs Next Visit Focus/Plan Next Note Type Treatment Note Next Visit Plan cont to advance vestibular rehab as tolerated; advance balance and LE strengthening as tolerated. Improve pelvis alignment to improve pt comfort w/wt acceptance w/gait
--- NOTE | 2023-07-11 12:44 | PT.OTN ---
Current Diagnoses Other disorders of vestibular function, left ear (07/11/23) Muscle weakness (generalized) (07/11/23) Difficulty in walking, not elsewhere classified (07/11/23) Unsteadiness on feet (07/11/23) Abnormal posture (07/11/23) Physical Therapy Treatment Note PT-OP-A Visit Information Start: 03/13/23 07:53 Freq: Status: Active Protocol: Document 07/11/23 12:02 DCW (Rec: 07/11/23 12:44 DCW [id number]) Out-Patient Physical Therapy Visit Information Visit Information Visit Type Discharge Summary Visit Start Time 12:02 Visit Stop Time 12:45 Visit Number 14 Number of PAINT AND TABLE EDGER Visits 0 PT-OP-B Current Condition Start: 03/13/23 07:53 Freq: Status: Active Protocol: Document 03/14/23 09:02 [facility] (Rec: 03/14/23 11:12 [facility] [id number]) Current Condition History of Current Condition History of Current Condition Pt reports her main issue is her balance. Pt had nausea/ vomitting/dizziness/FRAUSTO starting end of May and was diagnosed w/vestibular neuritis. She feels like when she turns her head, it feels like her eyes and head are not in sync. She doesn't feel secure anymore. This has just been since May. Pt had COVID last summer. She saw a high school tutor and transition teacher etc. She is having some symtoms re: this. She used to go for very long walks like [employer] and couldn't do it anymore. She got too short of breath. They did tons of tests . She was seeing [facility] PT in [place] and transfering here. She has been going for a few months. She has been focusing on the balance and her hip issue. She has been doing some eye exercsies and some head/neck work. 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 She still goes for a walk and uses a cane now and goes about 2 miles and it is all flat 3x week and doesn't walk alone. They are better than they were in May but still frequently. She used to wake up with them but now they are just random. Most of the time they come/go during the day. Typically about every day that last under an hr and sometimes gets more than 1 a day. Notes FRAUSTO are in frontal region and orbital. When first started, they were pretty constant. Hip pain is more mild and it comes/goes and has been present for the past 1 year. It bothers her when walking longer and turning over in bed . Pain in ant lat hip and sometimes shoots down lat thigh. She does live alone and wears a life alert all the time. Pt has been so weak and feels really weak and occ in the shower needs to sit down d /t feeling winded or weak/ tired in legs) Treatment Goals Patient/Caregiver Goals Have better balance, not feel so insecure about doing physical activities herself. Feel more secure about taking care of rigging slinger (get in/out of shower(walk in), change a lightbulb etc) PT-OP-C Subjective Start: 03/13/23 07:53 Freq: Status: Active Protocol: Document 07/11/23 12:02 DCW (Rec: 07/11/23 12:44 [facility] [id number]) OP-PT Subjective Patient Comments Patient Comments I feel pretty good. I know I can come back with a new referral, so I see it more as taking a break. PT-OP-E Functional Tests Start: 03/14/23 13:42 Freq: Status: Active Protocol: Document 06/06/23 13:53 [facility] (Rec: 06/06/23 15:07 [facility] [id number]) Functional Tests 30 Second Sit to Stand Test Score 12 Dynamic Gait Index (DGI) Score 18/24 Five Times Sit to Stand Test Score 13 sec Functional Gait Assessment Score 22/30 PT-OP-F Manual Assessment Start: 03/13/23 07:53 Freq: Status: Active Protocol: Document 03/14/23 09:02 [facility] (Rec: 03/14/23 13:50 [facility] [id number]) Manual Assessments Other Manual Assessments Other Manual Assessments 162/78 BP tested after sit to stand test PT-OP-G Mobility & Gait Start: 03/13/23 07:53 Freq: Status: Active Protocol: Document 03/14/23 09:02 [facility] (Rec: 03/14/23 11:12 [facility] [id number]) OP Gait Assessment Comments Gait Comments Pt has dec stance time on LLE and keeps arms to side for balance, lat leaning w/gait PT-OP-K Range of Motion Start: 03/13/23 07:53 Freq: Status: Active Protocol: Document 03/14/23 09:02 [facility] (Rec: 03/14/23 11:12 [facility] [id number]) Cervical Spine Range of Motion Cervical Spine Active Percentage Flexion 60 Extension 40 Rotation Left 50 Rotation Right 50 Lateral Flexion Left 40 Lateral Flexion Right 25 ROM Limitations Soft Tissue Tightness,Pain PT-OP-O Vestibular Start: 03/27/23 10:32 Freq: Status: Active Protocol: Document 07/11/23 12:02 [facility] (Rec: 07/11/23 12:44 DCW [id number]) Vestibular Assessment Visual Testing Smooth Pursuits Horizontal WNL Smooth Pursuits Vertical WNL Saccades Horizontal No increased symptoms Heave Test Positive L Thrust Head Positive L Convergence Test 10 cm DVA (Line Degradation) 5 Vestibular Function Tests Fukuda Test WNL PT-OP-Q Treatments Start: 03/13/23 07:53 Freq: Status: Active Protocol: Document 07/11/23 12:02 DCW (Rec: 07/11/23 12:44 DCW [id number]) Gym Equipment Shuttle Balance Red Details WBOS (EO/EC), Staggered Neuro Re-Education Treatment Balance Activities hurdles Equipment 6 hurdles, foam Comments 1. fwd over hurdles recip 2. fwd over hurdles tandem Tandem Stance Details Tandem Stance Equipment // bars SLS Details SLS Equipment // bars PT-OP-T Assessment and Plan Start: 03/13/23 07:53 Freq: Status: Active Protocol: Document 07/11/23 12:02 [facility] (Rec: 07/11/23 12:44 DC[facility] [id number]) Physical Therapy Assessment Impairments Impairments Activity Tolerance,Balance, Coordination,Functional Activities,Functional Mobility ,Gait,Pain,Posture,ROM,Soft Tissue Mobility,Strength, Transfers,Vestibular Goals DVA Impairment 5 line degradation during DVA testing Business Support Assistant Goal (LTG) Pt to demonstrate improved dynamic visual acuity by scoring three or few line degradation during DVA testing 06/06-n/t d/t not w/vestib PT today LTG Duration 08/27 activities Business Support Assistant Goal (LTG) Pt will report greater ease of rigging slinger/ADLs like showering w/feeling of inc stability and less c/o weakness and fatigue 06/06-still needs rest but is getting better; shower is easier LTG Duration 08/27 pain Short Term Goal (STG) Pt will report no hip pain w/ walk, allowing her to start to inc distance. 06/06-no hip pain but has not inc STG Duration 05/12/23 Care Home Goal (LTG) Pt will report no more than 1 FRAUSTO a week. 06/06-no change LTG Duration 06/06/23 strength Impairment 5x sit to stand: 20 sec; 30 sec sit to stand: 7 Short Term Goal (STG) Pt will improve 5x sit to stand to less than 15 sec to show improved LE strength and dec risk for falls. STG Duration achieved to 13 sec Care Home Goal (LTG) Pt will improve 30 sec sit to stand to at least 10 w/o dizziness after as appropriate w/age related norms in order to show improved LE strength/ activity tolerance and dec risk for falls. LTG Duration achieved to 12 06/06 balance Impairment DGI: 04/06 FGA: Short Term Goal (STG) Pt will improve DGI to at least 15/ to show improved balance and dec risk for falls . STG Duration achieved Business Support Assistant Goal (LTG) Pt will improve DGI to at least 20/ and FGA to at least to show improved balance and dec risk for falls . 06/06-achieved on FGA; on DGI LTG Duration 08/28 Assessment Summary Assessment Pt feeling comfortable with current level of function and her ongoing HEP. Agreeable to discharge at this time. Understands that if she needs to return, she will need a new referral. Physical Therapy Plan Frequency and Duration Frequency of Treatment 1x/Week Duration of treatment (weeks) 12 Plan of Care Start Date 06/06/23 Plan of Care End Date 08/29/23 Discharge Physical Therapy Discharge Comments Discharge to independent [facility] Next Visit Focus/Plan Next Note Type Discharge Summary
== END 2023-07-16 10:27 | disposition home or self-care (01) ==
LOC: PHYS 12:00
PROVIDERS: Family Provider Family Medicine; PCP Family Medicine; Referring Provider Otolaryngology; Visit Provider Otolaryngology
DX: H81.8X2 Other disorders of vestibular function, left ear (principal); M62.81 Muscle weakness (generalized); R29.3 Abnormal posture; R26.2 Difficulty in walking, not elsewhere classified; R26.81 Unsteadiness on feet
CPT/HCPCS: 97110; 97112; 97140; 97163; 97530; 97535

== ENCOUNTER → 2023-08-10 12:43 | Outpatient (CLI) | payer MEDICARE, SELFPAY ==
[2022-09-26 09:20] VITALS: BMI 29.0
--- NOTE | 2023-08-10 12:44 | DI.MG.S_ITS ---
BILATERAL DIGITAL SCREENING MAMMOGRAM 3D/2D WITH CAD: 08/10/2023 CLINICAL: Routine screening. Comparison is made to exams dated: 08/01/2022 mammogram, 06/18/2021 mammogram, and 06/15/2020 mammogram - [facility]. There are scattered areas of fibroglandular density in both breasts (category b / 25%-50% glandular tissue). Current study was also evaluated with a Computer Aided Detection (CAD) system. No significant masses, calcifications, or other findings are seen in either breast. There has been no significant interval change. IMPRESSION: NEGATIVE There is no mammographic evidence of malignancy. A 1 year screening mammogram is recommended. Based on the Tyrer Cuzick model (a risk assessment model) the patient's lifetime risk is 2.9% and her 10 year risk is 0.0%. According to the ACR, ACS, and NCCN guidelines, an annual breast MRI exam along with mammogram is recommended if the patient's lifetime risk is 20% or greater. This exam was interpreted at Station ID: [id number]. NOTE: For mammograms, a report in lay terms will be sent to the patient. Approximately 15% of breast malignancies will not be visualized mammographically. In the management of a palpable breast mass, a negative mammogram must not discourage biopsy of a clinically suspicious lesion. Electronically Signed By: Andree olivares/lester:08/10/2023 16:18:00 letter sent: Normal Exam ACR BI-RADS Category 1: Negative 3341F
== END ==
PROVIDERS: Family Provider Family Medicine; PCP Family Medicine; Referring Provider Family Medicine; Visit Provider Family Medicine
DX: Z12.31 Encounter for screening mammogram for malignant neoplasm of breast (principal); R92.323 Mammographic fibroglandular density, bilateral breasts
CPT/HCPCS: 77063; 77067

== ENCOUNTER 2023-11-08 10:36 | Day surgery (SDC) | payer MEDICARE, SELFPAY ==
[2022-09-26 09:20] VITALS: BMI 29.0
[2023-11-08 11:32] VITALS: BP 152/78; PULSE 74; RESP 16; TEMP 37.1; O2SAT 99
--- NOTE | 2023-11-08 11:33 | P.HP_ITS ---
History of Present Illness History of Present Illness Date Patient Seen: 11/08/23 Time Patient Seen: 11:34 Chief complaint: Screening Colonoscopy Narrative: Evelia is a 78-year-old woman here for colonoscopy. She has had polyps in the past. She believes her last colonoscopy was about 7 years ago. She believes she was supposed to have a colonoscopy 2 years ago. No family history of colon cancer. 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 (07/13/16) Controlled type 2 diabetes mellitus without complication (2007) Obesity (11/05/13) Hypertension (11/05/13) Surgical History (Updated 08/08/23 @ 11:45 by Irasema Kemp DO) H/O colonoscopy with polypectomy History of cataract surgery (~11/2020) History of cholecystectomy History of local excision of skin lesion (~2007) Anesthesia History of arthroplasty of right knee (02/23/14) History of ventral hernia repair History of inguinal hernia repair Status post hernia repair (2012) History of knee replacement (2009) Status post cholecystectomy (1995) Family History Mother Heart disease High cholesterol Congestive heart failure Father No problems noted. Social History household members: none Smoking Status: Former smoker alcohol intake: current Meds Home Medications and Allergies Home Medications Medication Instructions Recorded Confirmed Type alprazolam 0.25 mg tablet 0.125 mg (1/2 x 0.25 mg) PO 03/28/22 09/19/23 Rx BEDTIME PRN anxiety causing insomnia #60 tabs acyclovir 400 mg tablet 400 mg PO TID PRN Rash #30 tabs 08/28/22 09/19/23 Rx irbesartan 300 mg tablet 300 mg PO DAILY #90 tabs 06/15/23 09/19/23 Rx furosemide 20 mg tablet (Lasix) 20 mg PO DAILY fluid retention 09/03/23 09/19/23 Rx #90 tabs sodium,potassium,mag sulfates 17.5 See Rx Instructions PO .COMPLEX 09/20/23 Rx gram-3.13 gram-1.6 gram oral soln #354 mL (Suprep Bowel Prep Kit) trazodone 100 mg tablet 150 mg (1.5 x 100 mg) PO BEDTIME 09/28/23 Rx PRN insomnia #135 tabs diltiazem HCl 180 mg 180 mg PO BID #180 caps 10/01/23 Rx capsule,extended release 24 hr Allergies Allergy/AdvReac Type Severity Reaction Status Date / Time amlodipine AdvReac Intermediate leg edema Verified 09/19/23 09:36 Exam Const General: healthy appearing Resp Effort & Inspection: normal respiratory effort Assessment & Plan Assessment and plan (1) History of colon polyps: Status: Acute Plan We reviewed the risks and benefits of colonoscopy for a history of polyps and she would like to proceed.
[2023-11-08] MEDS: LACTATED RINGERS 1,000 ML 42 ML IV (11:37)
--- NOTE | 2023-11-08 12:31 | PM.OP.COLON ---
Operative Date/Time/Diagnoses Date of procedure: 11/08/23 Time of procedure: 12:31 Pre-op diagnosis: History of polyps Post-op diagnosis: same Procedure & Clinicians Study performed: Colonoscopy Same procedure as scheduled: Yes Surgeon: Serge Villanueva Procedure Notes Procedure in detail: Surgeon: Serge Villanueva MD Anesthesia: Courtney Crump MD Procedure: The patient was brought to the endoscopy suite, placed in left lateral decubitus position. The patient was connected to monitoring devices. A time-out was performed. Sedation was administered. Once the patient was adequately sedated, a digital rectal exam was performed and was normal. The scope was then inserted and advanced to the cecum where the appendiceal orifice was identified and photographed. The scope was then slowly withdrawn over greater than 6 minutes. The mucosa was thoroughly inspected. No polyps were found. There was sigmoid colon diverticulosis. The scope was retroflexed in the rectum. No other abnormalities were found. The scope was straightened and removed. The patient was awakened and brought to recovery. Scope withdrawal time: 7 minutes Sedation time: 17 minutes EBL: 0 Findings: Sigmoid colon diverticulosis Post-procedure Disposition: PACU
[2023-11-08 12:34] VITALS: BP 150/73; PULSE 64; RESP 20; TEMP 37.2; O2SAT 99
[2023-11-08 12:37] VITALS: BP 153/68; PULSE 62; RESP 28; O2SAT 99
== END 2023-11-08 12:51 | disposition home or self-care (01) ==
PROVIDERS: Family Provider Family Medicine; PCP Family Medicine; Referring Provider Surgery; Visit Provider Surgery
PROC: 0DJD8ZZ Inspection of Lower Intestinal Tract, Via Natural or Artificial Opening Endoscopic (ICD-10-PCS; CPT 45378; principal; 2023-11-08 11:30)
DX: Z12.11 Encounter for screening for malignant neoplasm of colon (principal); Z86.010 Personal history of colon polyps; K57.30 Diverticulosis of large intestine without perforation or abscess without bleeding
CPT/HCPCS: G0105; J2704

== ENCOUNTER → 2024-03-22 12:11 | Outpatient (CLI) | payer MEDICARE, SELFPAY ==
[2022-09-26 09:20] VITALS: BMI 29.0
== END ==
PROVIDERS: Family Provider Family Medicine; PCP Family Medicine; Visit Provider Registered Nurse
DX: R30.0 Dysuria (principal); R35.0 Frequency of micturition; R39.15 Urgency of urination; N30.00 Acute cystitis without hematuria
CPT/HCPCS: 87077; 87086; 87186

== ENCOUNTER → 2024-04-24 11:12 | Outpatient (CLI) | payer MEDICARE, SELFPAY ==
[2022-09-26 09:20] VITALS: BMI 29.0
[2024-04-24 13:34] LABS: Appearance Urine UA CLEAR; Bilirubin Urine UA NEGATIVE (NEGATIVE); Color Urine UA YELLOW; Glucose Urine UA NEGATIVE (Negative); Ketones Urine UA NEGATIVE (NEGATIVE); Leukocyte Esterase Urine UA 1+ (NEGATIVE); Nitrite Urine UA NEGATIVE (Negative); Occult Blood Urine UA TRACE-INTACT (Negative); Protein Urine UA NEGATIVE (Negative); Specific Gravity Urine UA 1.015 (1.000-1.035)
[2024-04-24 13:37] LABS: pH Urine UA 6.5 (4.5-8.0)
[2024-04-24 13:42] LABS: Bacteria Urine Moderate (10-30); Culture Indicated Urine Specimen Cultured; RBC Urine 1-5/HPF (0-5/HPF); Squamous Epithelial Cell Urine 1-5 /HPF (0-5/HPF); Urine Volume 10mL (spun); WBC Urine 5-10/HPF (0-5/HPF)
== END ==
PROVIDERS: Family Provider Family Medicine; PCP Family Medicine; Referring Provider Family Medicine; Visit Provider Family Medicine
DX: R35.0 Frequency of micturition (principal); R30.9 Painful micturition, unspecified
CPT/HCPCS: 81001; 87077; 87086; 87186

== ENCOUNTER → 2024-06-09 10:12 | Outpatient (CLI) | payer MEDICARE, SELFPAY ==
[2022-09-26 09:20] VITALS: BMI 29.0
[2024-06-09 11:10] LABS: Add Manual Diff / Slide Review NO; Basophils Absolute Auto 0 /uL (0-100); Basophils Percent Auto 0.7 % (0-2); Eosinophils Absolute Auto 100 /uL (0-450); Eosinophils Percent Auto 2.1 % (2-4); Hematocrit 41.8 % (36-46); Hemoglobin 13.9 g/dL (12.0-16.0); Lymphocytes Absolute Auto 1600 /uL (1100-4500); Lymphocytes Percent Auto 27.8 % (25-40); Mean Corpuscular HGB Conc 33.2 % (30-36); Mean Corpuscular Hemoglobin 29.5 PG (26-34); Mean Corpuscular Volume 88.9 fL (80-100); Monocytes Absolute Auto 500 /uL (0-900); Monocytes Percent Auto 8.6 % (3-14); Neutrophils Absolute Auto 3600 /uL (1500-7000); Neutrophils Percent Auto 60.8 % (50-75); Platelet Count 181 X10^3/uL (150-400); Red Cell Distribution Width 14.4 % (11.6-14.8); White Blood Cell Count 5.8 X10^3/uL (4.5-11.0)
[2024-06-09 11:22] LABS: Alanine Aminotransferase 25 IU/L (<35); Albumin 4.3 g/dL (3.5-5.0); Alkaline Phosphatase 111 U/L (38-126); Aspartate Aminotransferase 32 IU/L (14-36); BUN Creatinine Ratio 25.7 (6-22); Bilirubin Total 0.6 mg/dL (0.2-1.3); Blood Urea Nitrogen 19 mg/dL (7-17); Calcium 10.5 mg/dL (8.4-10.2); Carbon Dioxide 26 mmol/L (22-32); Chloride 105 mmol/L (98-107); Cholesterol 188 mg/dL (140-199); Estimated Glomerular Filt Rate > 60 mL/min (>60); Globulin 2.2 g/dL (1.7-4.1); Glucose 106 mg/dL (80-110); HDL Cholesterol 73 mg/dL (40-60); HEMOLYSIS < 15 (0-50); LDL Cholesterol Calculated 104 mg/dL (<100); Lipase 61 U/L (23-300); Potassium 3.8 mmol/L (3.4-5.1); Sodium 138 mmol/L (137-145); Total Protein 6.5 g/dL (6.3-8.2); Triglycerides 57 mg/dL (35-150)
[2024-06-09 11:40] LABS: Hemoglobin A1C% w Est Avg Glu 5.5 % (4.0-6.0)
[2024-06-10 04:12] LABS: CRP, High Sensitivity 0.73 mg/L (0.00-3.00)
== END ==
PROVIDERS: Family Provider Family Medicine; PCP Family Medicine; Referring Provider Family Medicine; Visit Provider Family Medicine
DX: E11.9 Type 2 diabetes mellitus without complications (principal); I10 Essential (primary) hypertension; R10.9 Unspecified abdominal pain
CPT/HCPCS: 36415; 80053; 80061; 83036; 83690; 85025; 86140

== ENCOUNTER → 2024-06-15 09:48 | Outpatient (CLI) | payer MEDICARE, SELFPAY ==
[2022-09-26 09:20] VITALS: BMI 29.0
--- NOTE | 2024-06-15 09:50 | DI.CT.S_ITS ---
PROCEDURE: CT ABDOMEN PELVIS W CON INDICATIONS: abdominal pain TECHNIQUE: After the administration of intravenous contrast, axial sections acquired from the lung bases to the pubic symphysis. Coronal and sagittal reformats were performed. For radiation dose reduction, the following was used: automated exposure control, adjustment of mA and/or kV according to patient size. COMPARISON: [facility], CT, CT ABDOMEN PELVIS W CON, 02/25/2019, 20:52. FINDINGS: Image quality: Diagnostic. Lower Chest: No significant findings. ABDOMEN: Liver: No solid mass. Small hypodensity near the falciform ligament is unchanged. Gallbladder: Absent. Biliary ducts: No biliary dilation. Pancreas: No ductal dilation. Spleen: Size is within normal limits. Numerous hypodense foci. These could represent these could represent cysts or hemangiomas or granulomas. Adrenal Glands: No adrenal nodules. Kidneys and Ureters: No hydronephrosis. No solid mass. No complex renal cystic lesion which requires follow up. Stomach and Bowel: Normal colonic caliber, without significant wall thickening. No diverticulitis. Normal appendix. No small bowel obstruction. Stomach is within normal limits. There is trace oral contrast in the distal esophagus. Peritoneum: No abnormal intraperitoneal fluid. No free air. Ventral Wall: No significant ventral hernia. Abdominal Nodes: No retroperitoneal or mesenteric adenopathy by size criteria. Vessels: Aorta and inferior vena cava are normal in size. PELVIS: Pelvic Organs: Anteverted uterus. Bladder: No bladder wall thickening, accounting for underdistention. No stone. Pelvic Nodes: No enlarged lymph nodes. Miscellaneous: Right inguinal hernia containing small bowel, (3/). Bones: No aggressive osseous abnormality. IMPRESSION: 1. Right inguinal hernia containing small bowel. This could be a source of pain. 2. No bowel obstruction. No pneumoperitoneum. 3. Prominent stool in the colon. Dictated by: Ronnie Ross M.D. on 06/15/2024 at 18:02 Approved by: Ronnie Ross M.D. on 06/15/2024 at 18:12
== END ==
LOC: CT 09:49
PROVIDERS: Family Provider Family Medicine; PCP Family Medicine; Referring Provider Family Medicine; Visit Provider Family Medicine
DX: K40.90 Unilateral inguinal hernia, without obstruction or gangrene, not specified as recurrent (principal); E11.9 Type 2 diabetes mellitus without complications; E83.52 Hypercalcemia; I10 Essential (primary) hypertension; R10.84 Generalized abdominal pain
CPT/HCPCS: 74177; Q9967

== ENCOUNTER → 2024-06-24 06:58 | Outpatient (CLI) | payer MEDICARE, SELFPAY ==
[2024-06-19 14:55] VITALS: BMI 29.0
[2024-06-24 07:50] LABS: Appearance Urine UA CLEAR; Bilirubin Urine UA NEGATIVE (NEGATIVE); Color Urine UA YELLOW; Glucose Urine UA NEGATIVE (Negative); Ketones Urine UA NEGATIVE (NEGATIVE); Leukocyte Esterase Urine UA NEGATIVE (NEGATIVE); Nitrite Urine UA POSITIVE (Negative); Occult Blood Urine UA NEGATIVE (Negative); Protein Urine UA NEGATIVE (Negative); Urobilinogen Urine UA 0.2 E.U./dL (0.2)
[2024-06-24 08:18] LABS: Bacteria Urine Many (>30); Culture Indicated Urine Specimen Cultured; RBC Urine None Seen (0-5/HPF); Squamous Epithelial Cell Urine 1-5 /HPF (0-5/HPF); Urine Volume 10mL (spun); WBC Urine 5-10/HPF (0-5/HPF)
[2024-06-25 03:36] LABS: CRP, High Sensitivity 0.54 mg/L (0.00-3.00)
[2024-06-26 05:08] LABS: Calcium 9.8 mg/dL (8.7-10.3); Parathyroid Hormone, Intact 69 pg/mL (15-65)
== END ==
PROVIDERS: Family Provider Family Medicine; PCP Family Medicine; Referring Provider Family Medicine; Visit Provider Family Medicine
DX: E83.52 Hypercalcemia (principal); E11.9 Type 2 diabetes mellitus without complications; I10 Essential (primary) hypertension; R10.9 Unspecified abdominal pain; R30.0 Dysuria
CPT/HCPCS: 36415; 81001; 82310; 82397; 83970; 86140; 87077; 87086; 87186

== ENCOUNTER 2024-08-09 15:58 | Emergency (ER) | payer MEDICARE, SELFPAY ==
[2024-06-19 14:55] VITALS: BMI 29.0
[2024-08-09 16:08] VITALS: BP 135/63; PULSE 63; RESP 18; TEMP 36.4; O2SAT 98; BMI 27.1
--- NOTE | 2024-08-09 16:33 | EKG_ITS ---
[address] [address] Test Date: 2024-08-09 Pat Name: Evelia Buchanan Department: [facility] Room: Gender: Female Corporate Officer: arash : 1945 Requested By: Order Number: [id number] Reading MD: Cody Denton MD Measurements Intervals [place] Rate: 60 P: 65 VA: 184 QRS: 24 QRSD: 78 T: 42 QT: 410 QTc: 410 Interpretive Statements Normal sinus rhythm Electronically Signed On 08-10-2024 8:51:36 PDT by Cody Denton MD
[2024-08-09 16:38] LABS: Add Manual Diff / Slide Review NO; Basophils Absolute Auto 0 /uL (0-100); Basophils Percent Auto 0.3 % (0-2); Eosinophils Absolute Auto 100 /uL (0-450); Eosinophils Percent Auto 1.1 % (2-4); Hematocrit 42.5 % (36-46); Hemoglobin 13.8 g/dL (12.0-16.0); Lymphocytes Absolute Auto 1600 /uL (1100-4500); Lymphocytes Percent Auto 21.7 % (25-40); Mean Corpuscular HGB Conc 32.5 % (30-36); Mean Corpuscular Hemoglobin 29.1 PG (26-34); Mean Corpuscular Volume 89.5 fL (80-100); Monocytes Absolute Auto 500 /uL (0-900); Monocytes Percent Auto 6.8 % (3-14); Neutrophils Absolute Auto 5300 /uL (1500-7000); Neutrophils Percent Auto 70.1 % (50-75); Platelet Count 173 X10^3/uL (150-400); Red Blood Cell Count 4.75 X10^6/uL (4.0-5.2); Red Cell Distribution Width 14.4 % (11.6-14.8); White Blood Cell Count 7.6 X10^3/uL (4.5-11.0)
[2024-08-09 16:48] LABS: Alanine Aminotransferase 35 IU/L (<35); Albumin 4.1 g/dL (3.5-5.0); Albumin Globulin Ratio 1.7 (1.0-2.8); Alkaline Phosphatase 114 U/L (38-126); Aspartate Aminotransferase 34 IU/L (14-36); BUN Creatinine Ratio 32.7 (6-22); Bilirubin Total 0.4 mg/dL (0.2-1.3); Blood Urea Nitrogen 33 mg/dL (7-17); Calcium 10.3 mg/dL (8.4-10.2); Carbon Dioxide 25 mmol/L (22-32); Chloride 106 mmol/L (98-107); Estimated Glomerular Filt Rate 57 mL/min (>60); Globulin 2.4 g/dL (1.7-4.1); Glucose 183 mg/dL (80-110); HEMOLYSIS < 15 (0-50); Lipase 62 U/L (23-300); Potassium 3.9 mmol/L (3.4-5.1); Sodium 139 mmol/L (137-145); Total Protein 6.5 g/dL (6.3-8.2)
--- NOTE | 2024-08-09 18:11 | DI.RAD.S_ITS ---
PROCEDURE: XR ABDOMEN 1V INDICATIONS: abdominal pain TECHNIQUE: One view of the abdomen acquired. COMPARISON: [facility], CT, CT ABDOMEN PELVIS W CON, 06/15/2024, 10:46. FINDINGS: Surgical changes and devices: Cholecystectomy clips are seen. Bowel: Bowel gas pattern is normal. There is a moderate volume of stool seen within the colon. Soft tissues: No suspicious abdominal calcifications. Visualized solid organ contours appear normal in size. Bones: No suspicious bony lesions. Age-appropriate bony degenerative changes are seen. IMPRESSION: There is a moderate amount of stool seen within the colon. Please correlate with an underlying history of constipation. Dictated by: Augusto Palafox M.D. on 08/09/2024 at 17:40 Approved by: Augusto Palafox M.D. on 08/09/2024 at 17:41
[2024-08-09 18:15] LABS: Bacteria Urine Few (2-10); Culture Indicated Urine Cult Not Indicated; Mucus Urine 1+ (Negative); RBC Urine 0-1/HPF (0-5/HPF); Squamous Epithelial Cell Urine 1-5 /HPF (0-5/HPF); Urine Volume Low Vol <10mL (spun); WBC Urine 1-5/HPF (0-5/HPF)
[2024-08-09 19:19] VITALS: PULSE 72; O2SAT 97
[2024-08-09 19:20] VITALS: BP 172/74; PULSE 71; O2SAT 99
--- NOTE | 2024-08-09 20:55 | ED_ITS ---
HPI - General Adult General Chief complaint: Abdominal Pain Stated complaint: abd pain for a couple months, getting worse t-7 Time Seen by Provider: 08/09/24 18:07 Source: patient Mode of arrival: Ambulatory History of Present Illness HPI narrative: 79-year-old woman with a history of hypertension presents with intermittent abdominal pain, she has been seen by her primary care physician has had a recent colonoscopy, a CT scan of the abdomen about a month ago increasing pain over the last 2-3 days and she was having difficulty sleeping. She notes she had some almost diarrhea type stool this morning. She has having no fevers, vomiting, chest pain, palpitations, lower extremity edema Related Data Home Medications Medication Instructions Recorded Confirmed melatonin 10 mg tablet 10 mg PO BEDTIME PRN 07/22/24 07/22/24 Previous Rx's Medication Instructions Recorded acyclovir 400 mg tablet 400 mg PO TID PRN Rash #30 tabs 08/28/22 estradiol 0.01% (0.1 mg/gram) 1 appful vaginal .COMPLEX #42.5 06/10/24 vaginal cream (Estrace) grams diltiazem HCl 180 mg 180 mg PO BID #180 caps 07/22/24 capsule,extended release 24 hr furosemide 20 mg tablet 20 mg PO DAILY #90 tabs 07/22/24 irbesartan 300 mg tablet 300 mg PO DAILY #90 tabs 07/22/24 magnesium amino acid chelate 100 100 mg PO BEDTIME #90 tabs 07/22/24 mg tablet progesterone micronized 100 mg 100 - 400 mg (1 - 4 x 100 mg) PO 07/22/24 capsule BEDTIME #90 caps Allergies Allergy/AdvReac Type Severity Reaction Status Date / Time amlodipine AdvReac Intermediate leg edema Verified 07/22/24 08:54 Review of Systems Review of Systems Narrative: Pertinent positive and negative findings as per HPI Patient History Medical History Vestibular neuritis Fatigue (~07/2022) Right shoulder pain Overweight (BMI 25.0-29.9) Osteoarthritis of knee (11/05/13) Diabetes type 2, controlled Night terrors Cataracts, bilateral Depression with anxiety Flu-like symptoms 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 Asymptomatic PVCs Normal Papanicolaou smear Asthma Leg pain, bilateral (2010) Chronic back pain (~1979) Rubella Measles Chicken pox Hypertension (1973) Precancerous skin lesion (~2007) Actinic keratosis of left cheek (02/2012) Herpes, genital (~1964) 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 (07/13/16) Controlled type 2 diabetes mellitus without complication (2007) Obesity (11/05/13) Hypertension (11/05/13) Surgical History H/O colonoscopy with polypectomy History of cataract surgery (~11/2020) History of cholecystectomy History of local excision of skin lesion (~2007) Anesthesia History of arthroplasty of right knee (02/23/14) History of ventral hernia repair History of inguinal hernia repair Status post hernia repair (2012) History of knee replacement (2009) Status post cholecystectomy (1995) Family History Mother Heart disease High cholesterol Congestive heart failure Father No problems noted. Social History marital status: unmarried,single household members: none lives independently: Yes occupational status: previously employed Smoking Status: Former smoker alcohol intake: former substance use type: does not use Smoking Status: Former smoker alcohol intake frequency: a few times a month Exam Initial Vital Signs Initial Vital Signs: Vital Signs Temperature 97.5 F L 08/09/24 16:08 Pulse Rate 63 08/09/24 16:08 Respiratory Rate 18 08/09/24 16:08 Blood Pressure 135/63 08/09/24 16:08 Pulse Oximetry 98 08/09/24 16:08 Oxygen Delivery Method Room Air 08/09/24 16:08 General: Healthy appearing, in no acute distress. Able to give a complete and coherent history. Well-nourished well-developed HEENT: Moist mucous membranes, normal sclera with reactive pupils, Respiratory: Lungs are clear to auscultation, no wheezing no rales no rhonchi. Full and symmetrical air movement Cardiac: Regular rate and rhythm no murmurs no bruits Abdomen: Soft, no point tenderness, no rebound or guarding, no flank pain Skin: Warm and dry, no rashes Neurologic: Grossly neurologically intact with no obvious asymmetries or abnormalities Extremities: No trauma, well perfused Psych: Cooperative, appropriate insight and affect Course Orders Ordered: ED Orders 08/09/24 16:14 EKG-12 Lead Stat 08/09/24 16:30 Complete Blood Count AUTO DIFF Stat Comprehensive Metabolic Panel Stat Lipase Stat 08/09/24 17:55 Urine Microscopic Stat 08/09/24 18:11 XR abdomen 1V Stat Ondansetron HCl (Ondansetron 4 Mg/2 Ml Inj) 4 mg IV NOW PRN PRN Reason: Nausea And Vomiting Ondansetron HCl (Ondansetron 4 Mg Odt) 4 mg PO NOW PRN PRN Reason: Nausea And Vomiting Vital Signs Vital signs: Vital Signs - 8 hr 08/09/24 16:08 Temperature 97.5 F L Pulse Rate 63 Respiratory Rate 18 Blood Pressure 135/63 Pulse Oximetry 98 Oxygen Delivery Method Room Air Medical Decision Making Lab Data 08/09/24 16:30 08/09/24 16:30 Labs: Lab Results 08/09/24 08/09/24 Range/Units 16:30 17:55 WBC 7.6 (4.5-11.0) X10^3/uL RBC 4.75 (4.0-5.2) X10^6/uL Hgb 13.8 (12.0-16.0) g/dL Hct 42.5 (36-46) % MCV 89.5 (80-100) fL MCH 29.1 (26-34) PG MCHC 32.5 (30-36) % RDW 14.4 (11.6-14.8) % Plt Count 173 (150-400) X10^3/uL Neut % (Auto) 70.1 (50-75) % Lymph % (Auto) 21.7 L (25-40) % [place] % (Auto) 6.8 (3-14) % Eos % (Auto) 1.1 L (2-4) % Baso % (Auto) 0.3 (0-2) % Neut # (Auto) 5300 (6940-5576) /uL Lymph # (Auto) 1600 (1701-7131) /uL [place] # (Auto) 500 (0-900) /uL Eos # (Auto) 100 (0-450) /uL Baso # (Auto) 0 (0-100) /uL Sodium 139 (137-145) mmol/L Potassium 3.9 (3.4-5.1) mmol/L Chloride 106 (98-107) mmol/L Carbon Dioxide 25 (22-32) mmol/L BUN 33 H (7-17) mg/dL Creatinine 1.01 (0.52-1.04) mg/dL Estimated GFR 57 L (>60) mL/min BUN/Creatinine Ratio 32.7 H (6-22) Glucose 183 H (80-110) mg/dL Calcium 10.3 H (8.4-10.2) mg/dL Total Bilirubin 0.4 (0.2-1.3) mg/dL AST 34 (14-36) IU/L ALT 35 H (<35) IU/L Alkaline Phosphatase 114 (38-126) U/L Total Protein 6.5 (6.3-8.2) g/dL Albumin 4.1 (3.5-5.0) g/dL Globulin 2.4 (1.7-4.1) g/dL Albumin/Globulin Ratio 1.7 (1.0-2.8) Lipase 62 (23-300) U/L Urine RBC 0-1/hpf (0-5/HPF) Urine WBC 1-5/hpf (0-5/HPF) Ur Squamous Epith Cells 1-5 /hpf (0-5/HPF) Urine Bacteria Few (2-10) H (None) Urine Mucus 1+ H (Negative) Ur Culture Indicated? Cult not indicated Vol Urine Centrifuged Low vol <10ml (spun) A Urine Dip Bedside Urine Glucose Negative Bedside Urine Bilirubin - Negative Bedside Urine Ketone +/- 5 Urine Specific [place] 1.030 Bedside Urine Occult Blood - Negative Bedside Urine pH 6.0 Bedside Urine Protein + 30 Bedside Urine Urobilinogen - Negative Bedside Urine Nitrite - Negative Bedside Urine Leukocytes - Negative Esterase Point of care testing: Urine Dip Bedside Urine Glucose Negative Bedside Urine Bilirubin - Negative Bedside Urine Ketone +/- 5 Urine Specific [place] 1.030 Bedside Urine Occult Blood - Negative Bedside Urine pH 6.0 Bedside Urine Protein + 30 Bedside Urine Urobilinogen - Negative Bedside Urine Nitrite - Negative Bedside Urine Leukocytes - Negative Esterase [facility] Narrative Medical decision making narrative: 79-year-old woman with intermittent episodes of abdominal pain over the last month over the last weeks has been getting worse she is massaging the right and transverse colon as location for her pain. Has had recent colonoscopy, CT scan. Workup today does not show infection, electrolyte abnormalitiesRenal dysfunction. X-ray of the abdomen does suggest moderate stool load and quite a bit of gas. Stool load correlates with her area of pain. We discussed her recent reassuring colonoscopy and CT scan. Reviewed normal labs, x-ray suggesting constipation is the source of her pain and ways to relieve the constipation. There currently is no indication of bowel perforation, acute surgical abdomen, intra-abdominal infection. She currently already takes magnesium in the evening suggested that she increase that dose to help with baseline constipation. We talked about using MiraLax, 1 capful every 30 minutes until she began to have significant stool movement. At that point reassessing her pain to decide if it was improved after her bowels had emptied or if she is still having intermittent episode she will need to follow up with her primary care physician. This point there was no indication for advanced imaging, further workup or hospitalization and she is safe for discharge Discharge Plan Departure Patient Disposition: Home Clinical Impression: Acute constipation Abdominal pain Qualifiers: Abdominal location: generalized Qualified Code(s): R10.84 - Generalized abdominal pain Instructions: DI for Abdominal Pain-Adult, DI for Constipation Activity Restrictions/Additional Instructions: Thank you for coming in today Your workup today was very reassuring. There was no evidence of infection, acute kidney or liver abnormalities, signs of bowel obstruction, bowel perforation or intra-abdominal abscess/infection. Based on your recent colonoscopy and the CT scan done last month, my suspicion for any type of intra-abdominal cancer or masses very low In looking at the x-ray of your abdomen you have quite a bit of stool in the right side of your colon and quite a bit of gas across the upper abdomen and the left upper quadrant. Going to suggest that you get some MiraLax on your way home this evening. I recommend a full cap full in a large glass of water/coffee, tea, juice every 30 minutes until you are noticing significant bowel output. Please continue the MiraLax until you feel that the stool is getting to essentially liquid. After you have had a chance to completely clear out your bowels, you will need to reassess your overall abdominal pain. If you are still having intermittent episodes of pain I would recommend follow up with your primary care physician. If you find that you are getting worse or develop any new symptoms, please feel free to return to the emergency department for further evaluation. Prescriptions: No Action acyclovir 400 mg tablet 400 mg PO TID PRN (Reason: Rash) Qty: 30 0RF Rx Instructions: Start at first symptoms and take for 5 days per outbreak. estradiol [Estrace] 0.01 % (0.1 mg/gram) cream 1 appful vaginal .COMPLEX Qty: 42.5 2RF Rx Instructions: 1 appful to vulva/paraurethral daily initially for 1-2 weeks, then 1-2x/week for ongoing maintenance dose progesterone micronized 100 mg capsule 100 - 400 mg PO BEDTIME Qty: 90 2RF Rx Instructions: Initially take 1 cap nightly initially then increase by 100mg to max 400mg to establish effective dose irbesartan 300 mg tablet 300 mg PO DAILY Qty: 90 1RF furosemide 20 mg tablet 20 mg PO DAILY Qty: 90 1RF diltiazem HCl 180 mg capsule,extended release 24hr 180 mg PO BID Qty: 180 1RF melatonin 10 mg tablet 10 mg PO BEDTIME PRN magnesium amino acid chelate 100 mg tablet 100 mg PO BEDTIME Qty: 90 0RF Referrals: Irasema Kemp DO [Primary Care Provider] - Stand Alone Forms: Patient Portal/API/Survey
[2024-08-09 21:25] VITALS: O2SAT 97
[2024-08-09 21:26] VITALS: BP 176/76; PULSE 67; O2SAT 98
--- NOTE | 2024-08-09 21:29 | PC.NURSE ---
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 IV catheter tip intact.
== END 2024-08-09 21:32 | disposition home or self-care (01) ==
PROVIDERS: Emergency Medicine; Emergency Provider Emergency Medicine; Family Provider Family Medicine; PCP Family Medicine
DX: R10.84 Generalized abdominal pain (principal); K59.00 Constipation, unspecified
CPT/HCPCS: 36415; 74018; 80053; 81003; 81015; 83690; 85025; 93005; 93010; 99283; 99284

== ENCOUNTER → 2024-08-16 | Outpatient (CLI) | payer MEDICARE, SELFPAY ==
[2024-06-19 14:55] VITALS: BMI 29.0
--- NOTE | 2024-08-16 13:03 | DI.MG.S_ITS ---
MM screening mammo BI: 08/16/2024. BI-RADS: 1 CLINICAL: 79-year old female for bilateral screening mammogram. Tyrer-Cuzick lifetime risk of 1.7%. No personal or first-degree family history of breast cancer. PRIOR EXAMS 08/10/2023, 08/01/2022, 06/18/2021, 06/15/2020, 06/12/2019, 06/11/2018, 06/26/2017, 06/07/2017, 05/18/2016, 04/07/2015. MAMMOGRAPHY TECHNIQUE: The examination is limited by clinical circumstance. 2D and 3D (tomosynthesis) digital mammographic views obtained, with additional images as needed for full coverage. Current study was also evaluated with a Computer Aided Detection (CAD) system. DENSITY B. There are scattered areas of fibroglandular density. MAMMOGRAPHY FINDINGS Bilateral: No suspicious mass, asymmetry, microcalcification, or other abnormality seen. No significant change from comparison. IMPRESSION: * No evidence of malignancy. RECOMMENDATIONS Bilateral * Annual screening mammography. OVERALL ASSESSMENT CATEGORY BI-RADS-1: Negative. The [employer] recommends annual screening mammography beginning at age 40 for women with average risk of breast cancer. ELECTRONICALLY SIGNED: Demi Ahn M.D. on 08/18/2024 at 03:11:13 PM PT Interpreting Station ID: [id number]
== END ==
LOC: MAMMO 12:58
PROVIDERS: Family Provider Family Medicine; PCP Family Medicine; Referring Provider Family Medicine; Visit Provider Family Medicine
DX: Z12.31 Encounter for screening mammogram for malignant neoplasm of breast (principal)
CPT/HCPCS: 77063; 77067

== ENCOUNTER 2024-08-27 08:37 | Day surgery (SDC) | payer MEDICARE, SELFPAY ==
[2024-06-19 14:55] VITALS: BMI 29.0
[2024-08-20 10:01] VITALS: BMI 26.3
[2024-08-27] VITALS (14 sets, daily range): BP systolic 114–143; BP diastolic 49–80; PULSE 60–72; RESP 12–18; TEMP 36.2–36.8; O2SAT 94–99; BMI 26.3
[2024-08-27] MEDS: LACTATED RINGERS 1,000 ML 42 ML IV (09:01)
--- NOTE | 2024-08-27 09:36 | PM.HP.IH.1 ---
History of Present Illness History of Present Illness Date Patient Seen: 08/27/24 Time Patient Seen: 09:36 Chief complaint: Lap RIH repair w/mesh Narrative: Renetta is a 79-year-old woman with a right inguinal hernia. See the office note from July for details. 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 (07/13/16) Controlled type 2 diabetes mellitus without complication (2007) Obesity (11/05/13) Osteoarthritis of knee (11/05/13) Hypertension (11/05/13) Surgical History (Updated 08/20/24 @ 10:28 by Grisel Soto RN) H/O colonoscopy with polypectomy History of cataract surgery (~11/2020) History of cholecystectomy History of local excision of skin lesion (~2007) Anesthesia History of arthroplasty of right knee (02/23/14) History of ventral hernia repair History of inguinal hernia repair Status post hernia repair (2012) History of knee replacement (2009) Status post cholecystectomy (1995) Family History Mother Heart disease High cholesterol Congestive heart failure Father No problems noted. Social History marital status: unmarried,single household members: none lives independently: Yes occupational status: previously employed Smoking Status: Former smoker alcohol intake: former substance use type: does not use Meds Home Medications and Allergies Home Medications Medication Instructions Recorded Confirmed Type acyclovir 400 mg tablet 400 mg PO TID PRN Rash #30 tabs 08/28/22 07/22/24 Rx furosemide 20 mg tablet 20 mg PO DAILY #90 tabs 07/22/24 08/27/24 Rx irbesartan 300 mg tablet 300 mg PO DAILY #90 tabs 07/22/24 08/27/24 Rx magnesium amino acid chelate 100 100 mg PO BEDTIME #90 tabs 07/22/24 07/22/24 Rx mg tablet melatonin 10 mg tablet 10 mg PO BEDTIME PRN 07/22/24 07/22/24 History progesterone micronized 100 mg 100 - 400 mg (1 - 4 x 100 mg) PO 07/22/24 07/22/24 Rx capsule BEDTIME #90 caps diltiazem HCl 180 mg 180 mg PO BID 08/27/24 08/27/24 History capsule,extended release 24 hr Allergies Allergy/AdvReac Type Severity Reaction Status Date / Time amlodipine AdvReac Intermediate leg edema Verified 08/27/24 09:07 Exam Vital Signs (past 8 hours): - 08/27/24 09:20 Temperature 97.6 F Pulse Rate 60 Respiratory Rate 16 Blood Pressure 143/80 H Pulse Oximetry 98 Oxygen Delivery Method Room Air Oxygen Delivery Method Room Air Const General: healthy appearing Assessment & Plan Assessment and plan (1) Right inguinal hernia: Status: Acute Plan Laparoscopic right inguinal hernia repair with mesh Time-Based Coding :: [TOTAL MINUTES] spent with patient and on the chart (including review of chart, obtaining history, exam, reviewing outside data, placing orders, documenting exam and treatment plan, and counseling patient) on [DATE]. PROFEE Financial Planning Consultant Document charge(s): No
[2024-08-27] MEDS: CEFAZOLIN 2 GM/100 ML PREMIX 100 ML IV (10:30)
--- NOTE | 2024-08-27 10:39 | SUR.OPER ---
Supine on padded OR bed, head on pillow, arms padded and tucked at sides, legs uncrossed, safety belt at thigh, tape over blanket over lower legs .
[2024-08-27] MEDS: BUPIVACAINE 0.5% W/ EPI (PF) 30 ML VIAL INJ (10:47)
--- NOTE | 2024-08-27 11:54 | PM.OP.1 ---
Operative Date/Time/Diagnoses Date of procedure: 08/27/24 Time of procedure: 11:54 Pre-op diagnosis: Right inguinal hernia Post-op diagnosis: same Procedure & Clinicians Procedure: Laparoscopic right inguinal hernia repair with mesh Same procedure as scheduled: Yes Surgeon: Serge Villanueva Stacking Machine Operator: Lexa Ochoa Anesthesia Type: General Operative Notes Procedure in detail: The patient was given preoperative antibiotics. The patient was brought to the operating room, placed on the table in the supine position with the arms tucked and general anesthesia was induced. The abdomen was prepped and draped in the usual fashion. A time-out was performed. A 1 cm supraumbilical incision was created and dissection was carried down to the anterior sheath. The fascia was scored transversely with cautery. The inferior leaf of the fascia was grasped with a Veronica clamp to elevate abdominal wall and a Peon clamp was used to goodrich the peritoneum. The Emilia port was placed and the abdomen was insufflated to 15 mmHg. The camera was inserted, there was no evidence of any injury from the entry. There was what initially appeared to be a direct right inguinal hernia. 5 mm ports were placed under direct vision in the mid left and mid right abdomen. The patient was positioned in steep Trendelenburg. We created right peritoneal flap. The peritoneum was dissected off the right round ligament. Once the myopectineal orifice was fully dissected it appeared that the primary defect was in the direct space however the inferior epigastric vessels were medial to the hernia. There also appeared to be a small defect going into the internal ring. The sac was dissected completely out of the larger direct defect. The peritoneum was dissected off of the round ligament and away from the internal ring. A small tear was created in the peritoneum. A large right Bard mesh was brought in and placed over the defect with the medial edge against Antonio's ligament. We then closed the peritoneal flap with a running 3-0 barbed suture. We did tack the excess peritoneum from the reduced sac over the small hole in the flap. We took one last look around the abdomen and saw no other abnormalities. The suture was removed and accounted for. The 5 mm ports were removed under direct vision. The abdomen was desufflated. The Emilia port was removed. Additional local was injected into the fascia and the fascial incision was closed with 2 interrupted 0 Vicryl sutures. The skin incisions were closed with 4 Monocryl, Steri-Strips and Band-Aids. EBL: 10 mL Specimen: None Lexa GUILLEN provided assistance with exposure, retraction and closure of incisions. Post-operative Condition: stable Disposition: PACU
[2024-08-27] MEDS: ACETAMINOPHEN IV 1,000 MG/100 ML VIAL 400 MG IV (12:15)
[2024-08-27] MEDS: OXYCODONE IR 5 MG TABLET PO ×2 (12:15→12:42)
[2024-08-27] MEDS: HYDROMORPHONE 1 MG INJ IV ×2 (12:20→12:25)
== END 2024-08-27 13:17 | disposition home or self-care (01) ==
PROVIDERS: Family Provider Family Medicine; PCP Family Medicine; Referring Provider Surgery; Visit Provider Surgery
PROC: 0YQ54ZZ Repair Right Inguinal Region, Percutaneous Endoscopic Approach (ICD-10-PCS; CPT 49650; principal; 2024-08-27 10:00)
DX: K40.90 Unilateral inguinal hernia, without obstruction or gangrene, not specified as recurrent (principal); Z87.891 Personal history of nicotine dependence
CPT/HCPCS: 49650; C1781; J0131; J0330; J0690; J1100; J1171; J2405; J2704; J3010; J3490

== ENCOUNTER → 2024-11-12 10:59 | Outpatient (CLI) | payer MEDICARE, SELFPAY ==
[2024-11-11 14:16] VITALS: BMI 29.0
--- NOTE | 2024-11-12 11:03 | DI.RAD.S_ITS ---
PROCEDURE: XR CHEST 2V INDICATIONS: rule out, recent travel and extreme fatigue/SOB TECHNIQUE: 2 views of the chest were acquired. COMPARISON: [facility], CR, XR CHEST 1V, 09/26/2022, 11:38. FINDINGS: Surgical changes and devices: None. Lungs and pleura: Lungs are clear. No pleural effusions or pneumothorax. Mediastinum: Mediastinal contours are normal. Heart size is normal. Bones and chest wall: No suspicious bony abnormalities. Soft tissues appear unremarkable. IMPRESSION: No acute cardiopulmonary abnormality is seen. Dictated by: Ronnie Ross M.D. on 11/12/2024 at 13:08 Approved by: Ronnie Ross M.D. on 11/12/2024 at 13:09
== END ==
LOC: RAD 11:03
PROVIDERS: Family Provider Family Medicine; PCP Family Medicine; Referring Provider Family Medicine; Visit Provider Family Medicine
DX: J18.9 Pneumonia, unspecified organism (principal)
CPT/HCPCS: 71046

== ENCOUNTER → 2024-11-12 15:24 | Outpatient (CLI) | payer MEDICARE, SELFPAY ==
[2024-11-11 14:16] VITALS: BMI 29.0
== END ==
PROVIDERS: Family Provider Family Medicine; PCP Family Medicine; Referring Provider Family Medicine; Visit Provider Family Medicine
DX: G45.9 Transient cerebral ischemic attack, unspecified (principal); R06.09 Other forms of dyspnea
CPT/HCPCS: 36415; 71046; 85379

== ENCOUNTER → 2024-11-20 11:13 | Outpatient (CLI) | payer MEDICARE, SELFPAY ==
[2024-11-11 14:16] VITALS: BMI 29.0
== END ==
PROVIDERS: Family Provider Family Medicine; PCP Family Medicine; Referring Provider Family Medicine; Visit Provider Family Medicine
DX: R06.09 Other forms of dyspnea (principal); Z87.891 Personal history of nicotine dependence
CPT/HCPCS: 94060; 94726; 94729

== ENCOUNTER → 2024-11-26 16:24 | Outpatient (CLI) | payer MEDICARE, SELFPAY ==
[2024-11-11 14:16] VITALS: BMI 29.0
[2024-11-26 18:00] LABS: Alanine Aminotransferase 26 IU/L (<35); Albumin 4.0 g/dL (3.5-5.0); Albumin Globulin Ratio 1.8 (1.0-2.8); Alkaline Phosphatase 94 U/L (38-126); Blood Urea Nitrogen 13 mg/dL (7-17); Calcium 10.0 mg/dL (8.4-10.2); Carbon Dioxide 26 mmol/L (22-32); Chloride 101 mmol/L (98-107); Estimated Glomerular Filt Rate > 60 mL/min (>60); Globulin 2.2 g/dL (1.7-4.1); Glucose 109 mg/dL (70-99); HEMOLYSIS < 15 (0-50); Potassium 4.0 mmol/L (3.4-5.1); Sodium 135 mmol/L (137-145); Total Protein 6.2 g/dL (6.3-8.2)
[2024-11-26 18:06] LABS: NT-proBNP (BNP-Adult 18+) 57 pg/mL (<450)
[2024-11-28 12:09] LABS: Calcium 10.0 mg/dL (8.7-10.3); Parathyroid Hormone, Intact 76 pg/mL (15-65)
== END ==
PROVIDERS: Family Provider Family Medicine; PCP Family Medicine; Referring Provider Family Medicine; Visit Provider Family Medicine
DX: R06.00 Dyspnea, unspecified (principal); E21.3 Hyperparathyroidism, unspecified; E83.52 Hypercalcemia; I10 Essential (primary) hypertension; I50.9 Heart failure, unspecified
CPT/HCPCS: 36415; 80053; 82310; 83880; 83970

== ENCOUNTER → 2025-01-21 08:41 | Outpatient (CLI) | payer MEDICARE, SELFPAY ==
[2024-11-11 14:16] VITALS: BMI 29.0
== END ==
PROVIDERS: Family Provider Family Medicine; PCP Family Medicine; Visit Provider Chiropractor
DX: R30.0 Dysuria (principal)
CPT/HCPCS: 87077; 87086

== ENCOUNTER → 2025-02-03 11:16 | Outpatient (CLI) | payer MEDICARE, SELFPAY ==
[2024-11-11 14:16] VITALS: BMI 29.0
== END ==
PROVIDERS: Family Provider Family Medicine; PCP Family Medicine; Visit Provider Registered Nurse
DX: N39.0 Urinary tract infection, site not specified (principal)
CPT/HCPCS: 81002; 87077; 87086; 87186